=== PATIENT | female | born 1960 | race Caucasian/White ===

== ENCOUNTER → 2017-04-06 | Outpatient (CLI) | payer OTHER ==
[2015-10-08 17:15] VITALS: BP 149/71
[~2017-04-06] MED LIST: ASPI-630 PO; CITA20TA9 PO; CYAN10005 PO; DIPH25CA58 PO; FLUT1DIS5 IH; FLUT9.9S NS; LISI40TA PO; MONT10TA6 PO; NAPR500T3 PO; OMEP20CA5 PO; TRAZ100T12 PO; VENTOLIN HFA18 GM INH
--- NOTE | 2017-04-06 14:41 | RAD ---
DATE: 04/06/2017 EXAM: DIGITAL SCREEN BILAT W/CAD HISTORY: Routine screening COMPARISON: 12/20/2015 This study was interpreted with the benefit of Computerized Aided Detection (CAD). The breast parenchyma is primarily fatty replaced. Breast parenchyma level density A. FINDINGS: No new or enlarging breast densities are seen. Benign type calcifications are present. No suspicious microcalcifications have developed. IMPRESSION: Stable mammograms without evidence of malignancy. BI-RADS CATEGORY: 2 BENIGN FINDING(S) RECOMMENDED FOLLOW-UP: 12M 12 MONTH FOLLOW-UP PQRS compliance statement: Patient information was entered into a reminder system with a target due date for the next mammogram. Mammography is a sensitive method for finding small breast cancers, but it does not detect them all and is not a substitute for careful clinical examination. A negative mammogram does not negate a clinically suspicious finding and should not result in delay in biopsying a clinically suspicious abnormality. "Our facility is accredited by the [employer] Mammography [employer]."
== END | disposition home or self-care (01) ==
LOC: MAMMO 10:36
PROVIDERS: ATTEND Internal Medicine
DX: Z12.31 Encounter for screening mammogram for malignant neoplasm of breast (principal)
CPT/HCPCS: G0202; 77067

== ENCOUNTER 2017-11-29 14:43 | Emergency (ER) | payer OTHER ==
[2017-11-29 15:55] LABS: BILIRUBIN,URINE NEGATIVE (NEG); CLARITY,URINE CLEAR; COLOR,URINE YELLOW; GLUCOSE,URINE NEGATIVE (NEG); NITRITE,URINE NEGATIVE (NEG); PROTEIN,URINE NEGATIVE (NEG-TRACE); UROBILINOGEN,URINE 0.2 mg/dL (0.2 mg/dL)
[2017-11-29 16:03] LABS: ADD MAN DIFF? NO
[2017-11-29 16:05] LABS: BACTERIA,URINE 0 /HPF (0-FEW); RBC,URINE 0 /HPF (0-2); SQUAMOUS EPITHELIAL CELL,UR MOD /LPF
[2017-11-29 16:09] LABS: BASO # 0.1 x10^3/uL (0.0-0.2); BASO % 1 % (0-3); EOS # 0.2 x10^3/uL (0.0-0.7); EOS % 3 % (0-3); HEMATOCRIT 38.7 % (36.0-47.0); LYMPH # 1.5 x10^3/uL (1.0-4.8); LYMPH % 23 % (24-48); MEAN CORPUSCULAR HEMOGLOBIN 27 pg (25-35); MEAN CORPUSCULAR HGB CONC 34 g/dL (31-37); MEAN CORPUSCULAR VOLUME 82 fL (79-100); MONO # 0.4 x10^3/uL (0.0-1.1); MONO % 6 % (0-9); NEUT # 4.3 x10^3uL (1.8-7.7); NEUT % 67 % (31-73); PLATELET COUNT 186 x10^3/uL (140-400); RED BLOOD COUNT 4.75 x10^6/uL (3.50-5.40); RED CELL DISTRIBUTION WIDTH 14.3 % (11.5-14.5); WHITE BLOOD COUNT 6.4 x10^3/uL (4.0-11.0)
[2017-11-29 16:29] LABS: ANION GAP 9 (6-14); BLOOD UREA NITROGEN 19 mg/dL (7-20); BUN/CREATININE RATIO 16 (6-20); CALCIUM 9.2 mg/dL (8.5-10.1); CARBON DIOXIDE 29 mmol/L (21-32); CHLORIDE 103 mmol/L (98-107); CREATININE 1.2 mg/dL (0.6-1.0); GFR 46.1; GLUCOSE 97 mg/dL (70-99); SODIUM 141 mmol/L (136-145)
[2017-11-29] MEDS: MORPHINE SULFATE 4 MG/ML DISP.SYRIN. IV (16:32)
[2017-11-29 16:35] LABS: ALBUMIN/GLOBULIN RATIO 1.1 (1.0-1.7); ALK PHOS 68 U/L (46-116); ALT (SGPT) 35 U/L (14-59); AST (SGOT) 19 U/L (15-37); TOTAL BILIRUBIN 0.4 mg/dL (0.2-1.0); TOTAL PROTEIN 7.5 g/dL (6.4-8.2)
== END 2017-11-29 17:20 | disposition home or self-care (01) ==
LOC: ER 14:43
DX: M94.0 Chondrocostal junction syndrome [Tietze] (principal); K21.9 Gastro-esophageal reflux disease without esophagitis; J45.909 Unspecified asthma, uncomplicated; I11.9 Hypertensive heart disease without heart failure; Z95.0 Presence of cardiac pacemaker
CPT/HCPCS: 36415; 71046; 80053; 81001; 85025; 87086; 93005; 96374; 99285-25; J2270

== ENCOUNTER → 2018-04-11 | Outpatient (CLI) | payer OTHER ==
[2017-11-29 17:11] VITALS: BP 193/84
[~2018-04-11] MED LIST changes: +HYDR-971 PO; +LISI-130 PO; -LISI40TA PO; +NAPR-514 PO; -NAPR500T3 PO; +TRAZ-86 PO; -TRAZ100T12 PO
--- NOTE | 2018-04-11 12:52 | RAD ---
DATE: 04/11/2018 EXAM: DIGITAL SCREEN BILAT W/CAD HISTORY: Routine screening COMPARISON: 04/06/2017 This study was interpreted with the benefit of Computerized Aided Detection (CAD). Breast Density: FATTY The breast parenchyma is primarily fatty replaced. Breast parenchyma level density A. FINDINGS: No new or enlarging breast densities are seen. Benign type calcifications are again noted. No suspicious microcalcifications have developed. IMPRESSION: Stable mammograms without evidence of malignancy. BI-RADS CATEGORY: 2 BENIGN FINDING(S) RECOMMENDED FOLLOW-UP: 12M 12 MONTH FOLLOW-UP PQRS compliance statement: Patient information was entered into a reminder system with a target due date for the next mammogram. Mammography is a sensitive method for finding small breast cancers, but it does not detect them all and is not a substitute for careful clinical examination. A negative mammogram does not negate a clinically suspicious finding and should not result in delay in biopsying a clinically suspicious abnormality. "Our facility is accredited by the [employer] Mammography [employer]."
== END | disposition home or self-care (01) ==
LOC: MAMMO 12:27
PROVIDERS: ATTEND Internal Medicine
DX: Z12.31 Encounter for screening mammogram for malignant neoplasm of breast (principal); I11.9 Hypertensive heart disease without heart failure; K21.9 Gastro-esophageal reflux disease without esophagitis; Z88.1 Allergy status to other antibiotic agents; Z88.8 Allergy status to other drugs, medicaments and biological substances
CPT/HCPCS: 77067

== ENCOUNTER 2018-04-15 21:32 | Emergency (ER) | payer OTHER ==
[~2018-04-15] VITALS: Ht 154.9 cm; Wt 83.9 kg
[2018-04-16 02:00] VITALS: BP 174/78
[2018-04-16] MEDS ORDERED: HYDROcodone/APAP 5/325MG 1 TAB TABLET PO ONE (02:00)
[2018-04-16] MEDS ORDERED: LIDOCAINE 2%/EPI 1:100,000 20 ML VIAL. IJ ONE (02:00)
[2018-04-16] MEDS ORDERED: HYDR-971 PO (03:04)
--- NOTE | 2018-04-16 03:04 | PHYS DOC ---
Past Medical History Past Medical History: Asthma, GERD, Heart Disease, Hypertension Past Surgical History: Pacemaker, Other Additional Past Surgical Histo: pacemaker Alcohol Use: None Drug Use: None Adult General Chief Complaint Chief Complaint: TOE PROBLEM HPI HPI Patient is a 58 year old [f__sex] who presents with [] Review of Systems Review of Systems Constitutional: Denies fever or chills [] Eyes: Denies change in visual acuity, redness, or eye pain [] HENT: Denies nasal congestion or sore throat [] Respiratory: Denies cough or shortness of breath [] Cardiovascular: No additional information not addressed in HPI [] GI: Denies abdominal pain, nausea, vomiting, bloody stools or diarrhea [] : Denies dysuria or hematuria [] Musculoskeletal: Denies back pain or joint pain [] Integument: Denies rash or skin lesions [] Neurologic: Denies headache, focal weakness or sensory changes [] Endocrine: Denies polyuria or polydipsia [] All other systems were reviewed and found to be within normal limits, except as documented in this note. Current Medications Current Medications Current Medications Medications (Trade) Dose Ordered Sig/Paula Start Time Stop Time Status Last Admin Dose Admin Acetaminophen/ Hydrocodone Bitart (Lortab 5/325) 1 tab 1X ONCE 04/16/18 02:00 04/16/18 02:01 DC 04/16/18 02:17 1 TAB Lidocaine/ Epinephrine (LIDOCAINE 2%-EPI 1:100,000 multi-dose) 20 ml 1X ONCE 04/16/18 02:00 04/16/18 02:01 DC 04/16/18 02:19 20 ML Allergies Allergies Allergies Coded Allergies Type Severity Reaction Last Updated Verified piperacillin Allergy Unknown rash 05/16/15 No tazobactam Allergy Unknown rash 05/16/15 No Physical Exam Physical Exam Constitutional: Well developed, well nourished, no acute distress, non-toxic appearance. [] HENT: Normocephalic, atraumatic, bilateral external ears normal, oropharynx moist, no oral exudates, nose normal. [] Eyes: PERRLA, EOMI, conjunctiva normal, no discharge. [] Neck: Normal range of motion, no tenderness, supple, no stridor. [] Cardiovascular:Heart rate regular rhythm, no murmur [] Lungs & Thorax: Bilateral breath sounds clear to auscultation [] Abdomen: Bowel sounds normal, soft, no tenderness, no masses, no pulsatile masses. [] Skin: Warm, dry, no erythema, no rash. [] Back: No tenderness, no CVA tenderness. [] Extremities: No tenderness, no cyanosis, no clubbing, ROM intact, no edema. [] Neurologic: Alert and oriented X 3, normal motor function, normal sensory function, no focal deficits noted. [] Psychologic: Affect normal, judgement normal, mood normal. [] Current Patient Data Vital Signs Vital Signs Date Time Temp Pulse Resp B/P (MAP) Pulse Ox O2 Delivery O2 Flow Rate FiO2 04/16/18 02:17 18 97 04/16/18 00:04 97.9 63 200/91 (127) Room Air 97.9 EKG EKG [] Radiology/Procedures Radiology/Procedures XR of R foot: (Preliminary interpretation by ED physician): Acute fractures of proximal phalanx of both fourth and fifth toes Course & Med Decision Making Course & Med Decision Making Pertinent Labs and Imaging studies reviewed. (See chart for details) [] Dragon Disclaimer Dragon Disclaimer This electronic medical record was generated, in whole or in part, using a voice recognition dictation system. Departure Departure Impression: Primary Impression: Toe fracture, right Disposition: 01 HOME, SELF-CARE Condition: STABLE Referrals: JEAN CLAUDE MUNOZ MD (PCP) ARTEMIO PETERSON MD Patient Instructions: Toe Fracture Scripts Hydrocodone/Apap 5-325 (NORCO 5-325 TABLET) 1 Each Tablet 1 TAB PO PRN Q6HRS PRN for PAIN, #14 TAB 0 Refills Prov: JOSETTE CUNNINGHAM DO 04/16/18 Problem Qualifiers Primary Impression: Toe fracture, right Encounter type: initial encounter Toe: lesser toe Fracture type: closed Phalanx: proximal Fracture alignment: displaced Qualified Codes: S92.511A - Displaced fracture of proximal phalanx of right lesser toe(s), initial encounter for closed fracture JOSETTE CUNNINGHAM DO Apr 16, 2018 03:04
--- NOTE | 2018-04-16 07:55 | RAD ---
Right foot, 3 views, 04/16/2018: HISTORY: Foot pain The bony structures are demineralized. There is a mildly displaced and angulated fracture of the proximal phalanx of the little toe. There is also a fracture of the distal aspect of the proximal phalanx of the fourth toe with mild lateral displacement and angulation of the distal fracture fragment. No other fracture or dislocation is identified. There are mild scattered degenerative changes. A small inferior calcaneal spur is noted. There is subcutaneous edema. IMPRESSION: Acute fractures of the proximal phalanges of the fourth and fifth toes. Electronically signed by: Antonio Solomon MD (04/16/2018 7:52 AM) [facility]
== END 2018-04-16 03:05 | disposition home or self-care (01) ==
LOC: ER 21:32
DX: S92.511A Displaced fracture of proximal phalanx of right lesser toe(s), initial encounter for closed fracture (principal); J45.909 Unspecified asthma, uncomplicated; K21.9 Gastro-esophageal reflux disease without esophagitis; I11.9 Hypertensive heart disease without heart failure; Z95.0 Presence of cardiac pacemaker; Z88.1 Allergy status to other antibiotic agents; Z88.8 Allergy status to other drugs, medicaments and biological substances; W01.198A Fall on same level from slipping, tripping and stumbling with subsequent striking against other object, initial encounter; Y93.89 Activity, other specified; Y92.89 Other specified places as the place of occurrence of the external cause; Y99.8 Other external cause status
CPT/HCPCS: 73630; 99284; J3490

== ENCOUNTER 2018-05-23 20:39 | Inpatient (IN) | payer OTHER ==
[~2018-05-23] VITALS: Ht 154.9 cm; Wt 77.1 kg
[2018-05-23] MEDS ORDERED: IV NORMAL SALINE 500ML BAG 500 ML IV ONE (22:30)
--- NOTE | 2018-05-23 22:33 | EKG ---
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
[2018-05-23 22:34] LABS: BILIRUBIN,URINE SMALL (NEG); CLARITY,URINE CLEAR; COLOR,URINE YELLOW; NITRITE,URINE NEGATIVE (NEG); PROTEIN,URINE NEGATIVE (NEG-TRACE)
[2018-05-23 22:35] LABS: BASO % 1 % (0-3); EOS # 0.2 x10^3/uL (0.0-0.7); EOS % 3 % (0-3); HEMATOCRIT 38.6 % (36.0-47.0); LYMPH # 1.6 x10^3/uL (1.0-4.8); LYMPH % 23 % (24-48); MEAN CORPUSCULAR HEMOGLOBIN 28 pg (25-35); MEAN CORPUSCULAR HGB CONC 34 g/dL (31-37); MEAN CORPUSCULAR VOLUME 82 fL (79-100); MONO # 0.4 x10^3/uL (0.0-1.1); MONO % 6 % (0-9); NEUT # 4.7 x10^3uL (1.8-7.7); NEUT % 69 % (31-73); PLATELET COUNT 183 x10^3/uL (140-400); RED BLOOD COUNT 4.74 x10^6/uL (3.50-5.40); RED CELL DISTRIBUTION WIDTH 14.2 % (11.5-14.5); WHITE BLOOD COUNT 6.9 x10^3/uL (4.0-11.0)
[2018-05-23 22:42] LABS: CALCIUM 9.4 mg/dL (8.5-10.1); CREATININE 0.8 mg/dL (0.6-1.0); GFR 73.4; POTASSIUM 3.5 mmol/L (3.5-5.1)
[2018-05-23 22:42] LABS: BACTERIA,URINE FEW /HPF (0-FEW); RBC,URINE OCC /HPF (0-2)
[2018-05-23 22:43] LABS: SQUAMOUS EPITHELIAL CELL,UR MANY /LPF
--- NOTE | 2018-05-23 23:33 | RAD ---
Indication:DIZZINESS, N,V,D X3 DAYS TECHNIQUE:Portable AP chest X-ray COMPARISON:11/29/2017 FINDINGS: Heart is normal in size. Stable position of dual-lead cardiac pacer with its leads projecting over the heart. Diffuse prominent bronchial markings are seen. No focal consolidation. No pneumothorax or pleural effusion. Visualized bony thorax is within normal limits. IMPRESSION: Findings suggests either bronchitis or mild interstitial pulmonary edema. Electronically signed by: Braulio Rosas DO (05/23/2018 11:30 PM) [facility]
[2018-05-24] MEDS ORDERED: ACETAMINOPHEN 325 MG TABLET. PO PRN (00:45)
[2018-05-24] MEDS ORDERED: MORPHINE SULFATE 4 MG/ML VIAL. IV PRN (00:45)
[2018-05-24] MEDS ORDERED: ONDANSETRON PF 4 MG/2 ML VIAL. IV PRN (00:45)
--- NOTE | 2018-05-24 01:36 | PHYS DOC ---
Past Medical History Past Medical History: Asthma, GERD, Heart Disease, Hypertension Past Surgical History: Pacemaker, Other Additional Past Surgical Histo: pacemaker Alcohol Use: None Drug Use: None Adult General Chief Complaint Chief Complaint: DIZZY/LIGHT HEADED [facility] HPI Patient is a 58 year old female who presents with multiple complaints. Patient complains of her oral melees, generalized weakness, and dizziness. Symptoms started over the last 24 hours. Prior to this however, she endorses a three-week history of viral symptoms and cough. She had diminished appetite. She had some intermittent nausea over the last 24 hours. She also complains of some intermittent waxing and waning chest heaviness over the last 48 hours. She did not have any sustained chest pain. She denies abdominal pain. No urinary symptoms. No orthopnea. No dyspnea with exertion. Review of Systems Review of Systems Constitutional: Denies fever or chills Eyes: Denies change in visual acuity HENT: Denies nasal congestion or sore throat Respiratory: Denies cough Cardiovascular: No additional information not addressed in HPI GI: Denies abdominal pain : Denies dysuria or hematuria Musculoskeletal: Denies back pain or joint pain Integument: Denies rash or skin lesions Neurologic: Denies headache, or focal neuro complaints Endocrine: Denies polyuria All other systems were reviewed and found to be within normal limits, except as documented in this note. Current Medications Current Medications Current Medications Medications (Trade) Dose Ordered Sig/Paula Start Time Stop Time Status Last Admin Dose Admin Sodium Chloride 500 ml @ 500 mls/hr 1X ONCE 05/23/18 22:30 05/23/18 23:29 DC 05/23/18 22:40 500 MLS/HR Allergies Allergies Allergies Coded Allergies Type Severity Reaction Last Updated Verified piperacillin Allergy Unknown rash 05/16/15 No tazobactam Allergy Unknown rash 05/16/15 No Physical Exam Physical Exam Constitutional: Well developed, well nourished, no acute distress HENT: Normocephalic, atraumatic, bilateral external ears normal, oropharynx moist Eyes: PERRLA, EOMI, conjunctiva normal Neck: Normal range of motion Cardiovascular:Heart rate regular rhythm Lungs & Thorax: Bilateral breath sounds clear to auscultation Abdomen: Bowel sounds normal, soft, no tenderness Skin: Warm, dry, no erythema Back: No tenderness Extremities: No tenderness, no cyanosis, no clubbing, ROM intact Neurologic: Alert and oriented X 3, normal motor function Psychologic: Affect normal Current Patient Data Vital Signs Vital Signs Date Time Temp Pulse Resp B/P (MAP) Pulse Ox O2 Delivery O2 Flow Rate FiO2 05/23/18 23:15 67 18 98 05/23/18 20:58 98.7 178/73 (108) Room Air 98.7 Lab Values Laboratory Tests Test 05/23/18 20:45 05/23/18 21:16 Urine Collection Type Unknown Urine Color Yellow Urine Clarity Clear Urine pH 6.0 Urine Specific [place] 1.025 Urine Protein Negative mg/dL (NEG-TRACE) Urine Glucose (UA) Negative mg/dL (NEG) Urine Ketones (Stick) 40 mg/dL (NEG) Urine Blood Negative (NEG) Urine Nitrite Negative (NEG) Urine Bilirubin Small (NEG) Urine Urobilinogen Dipstick 1.0 mg/dL (0.2 mg/dL) Urine Leukocyte Esterase Moderate (NEG) Urine RBC Occ /HPF (0-2) Urine WBC 11-20 /HPF (0-4) Urine Squamous Epithelial Cells Many /LPF Urine Bacteria Few /HPF (0-FEW) Urine Mucus Marked /LPF White Blood Count 6.9 x10^3/uL (4.0-11.0) Red Blood Count 4.74 x10^6/uL (3.50-5.40) Hemoglobin 13.0 g/dL (12.0-15.5) Hematocrit 38.6 % (36.0-47.0) Mean Corpuscular Volume 82 fL (79-100) Mean Corpuscular Hemoglobin 28 pg (25-35) Mean Corpuscular Hemoglobin Concent 34 g/dL (31-37) Red Cell Distribution Width 14.2 % (11.5-14.5) Platelet Count 183 x10^3/uL (140-400) Neutrophils (%) (Auto) 69 % (31-73) Lymphocytes (%) (Auto) 23 % (24-48) L Monocytes (%) (Auto) 6 % (0-9) Eosinophils (%) (Auto) 3 % (0-3) Basophils (%) (Auto) 1 % (0-3) Neutrophils # (Auto) 4.7 x10^3uL (1.8-7.7) Lymphocytes # (Auto) 1.6 x10^3/uL (1.0-4.8) Monocytes # (Auto) 0.4 x10^3/uL (0.0-1.1) Eosinophils # (Auto) 0.2 x10^3/uL (0.0-0.7) Basophils # (Auto) 0.0 x10^3/uL (0.0-0.2) Sodium Level 142 mmol/L (136-145) Potassium Level 3.5 mmol/L (3.5-5.1) Chloride Level 104 mmol/L (98-107) Carbon Dioxide Level 27 mmol/L (21-32) Anion Gap 11 (6-14) Blood Urea Nitrogen 17 mg/dL (7-20) Creatinine 0.8 mg/dL (0.6-1.0) Estimated GFR (Cockcroft-Gault) 73.4 Glucose Level 91 mg/dL (70-99) Calcium Level 9.4 mg/dL (8.5-10.1) Troponin I Quantitative < 0.017 ng/mL (0.000-0.055) BP-Yxk-B-Type Natriuretic Peptide 278 pg/mL (0-124) H Laboratory Tests 05/23/18 21:16 Laboratory Tests 05/23/18 21:16 EKG EKG No STEMI Interpretation Time: 21:10 Radiology/Procedures Radiology/Procedures FINDINGS: Heart is normal in size. Stable position of dual-lead cardiac pacer with its leads projecting over the heart. Diffuse prominent bronchial markings are seen. No focal consolidation. No pneumothorax or pleural effusion. Visualized bony thorax is within normal limits. IMPRESSION: Findings suggests either bronchitis or mild interstitial pulmonary edema. Course & Med Decision Making Course & Med Decision Making Pertinent Labs and Imaging studies reviewed. (See chart for details) Patient was evaluated in the emergency department for multiple vague complaints. One of which was chest pain. Her EKG was normal. Her troponin was not elevated. She was feeling improved after a 500 mL normal saline bolus but the patient had some reservation about discharge home. Her lab panel was otherwise nonacute. I spoke to her primary care physician, Dr. Moore, who was agreeable to admit the patient for chest pain rule out. Bridge orders are placed. Cardiology consultation is requested. Patient is agreeable to the plan of care and all of her questions were answered prior to admission. Her urine was suspicious for infection although contaminated as well. Urine culture was added to her lab panel. She is started on Levaquin. She does have a penicillin allergy. Dragon Disclaimer Dragon Disclaimer This electronic medical record was generated, in whole or in part, using a voice recognition dictation system. Departure Departure Impression: Primary Impression: Chest pain Additional Impression: Urinary tract infection Disposition: ADMITTED INPATIENT Condition: GOOD Referrals: JEAN CLAUDE MOORE MD (PCP) Problem Qualifiers HIGINIO EDDY DO May 24, 2018 01:36
[2018-05-24 01:45] VITALS: BP 155/73
[2018-05-24] MEDS ORDERED: AMLO10TA6 PO (02:19)
[2018-05-24 07:00] VITALS: BP 143/52
[2018-05-24 08:06] LABS: CHOLESTEROL/HDL RATIO 3.3
--- NOTE | 2018-05-24 08:58 | PDOC2 ---
CLEMENTE FRANKEL BOXING INSPECTOR 05/24/18 0858: CARDIAC CONSULT DATE OF CONSULT Date of Consult DATE: 05/24/18 TIME: 08:53 REASON FOR CONSULT Reason for Consult: chest pain REFERRING PHYSICIAN Referring Physician: consuelo SOURCE Source: Chart review, Patient HISTORY OF PRESENT ILLNESS HISTORY OF PRESENT ILLNESS This is a pleasant 58 yo female admitted for complains if dizziness, chest pain. and SOA. Reports that in the last 2-3 weeks she has been having frequent heartburn and has been treating it tums. In the last week she has been having cough which then progressed to productive with yellow sputum. Sometimes she feels SOA when walking and has been having episodes of wheezing. She has not escalated her asthma medications. No fever or chills. In the last 2 days she has been having mid lower sternal sharp pain which is reproducible with palpation. No radiation, no associated nausea or vomiting and no palpitations. She has been hydrating herself well. Also in the lat 2 days whenever she gets up and turn her head towards the left she experience vertigo. Denies any past CAD, VTE. 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 aJin in whom she saw about a yr ago. PAST MEDICAL HISTORY Cardiovascular: HTN Pulmonary: Asthma CENTRAL NERVOUS SYSTEM: Other (No pertinent history) GI: GERD Heme/Onc: No pertinent hx Hepatobiliary: No pertinent hx Psych: No pertinent hx Musculoskeletal: Osteoarthritis Rheumatologic: No pertinent hx Infectious disease: No pertinent hx ENT: No pertinent hx Renal/: No pertinent hx Endocrine: No pertinent hx Dermatology: No pertinent hx PAST SURGICAL HISTORY Past Surgical History: Pacemaker, Tubal Ligation FAMILY HISTORY Family History: Heart Disease (mother) SOCIAL HISTORY Smoke: No ALCOHOL: none Drugs: None Lives: with Family CURRENT MEDICATIONS CURRENT MEDICATIONS Current Medications Medications (Trade) Dose Ordered Sig/Paula Route PRN Reason Start Time Stop Time Status Last Admin Dose Admin Sodium Chloride 500 ml @ 500 mls/hr 1X ONCE IV 05/23/18 22:30 05/23/18 23:29 DC 05/23/18 22:40 Levofloxacin (Levaquin) 500 mg 1X ONCE PO 05/24/18 01:00 05/24/18 01:01 DC 05/24/18 01:24 ALLERGIES ALLERGIES: Coded Allergies: piperacillin (Unverified Allergy, Unknown, rash, 05/16/15) tazobactam (Unverified Allergy, Unknown, rash, 05/16/15) ROS Review of System 14 point ROS evaluated with pertinent positives noted per HPI PHYSICAL EXAM General: Alert, Oriented X3, Cooperative, No acute distress HEENT: Atraumatic, Mucous membr. moist/pink Lungs: Clear to auscultation, Normal air movement Heart: Regular rate (SR), Normal S1, Normal S2, No murmurs Abdomen: Soft, No tenderness Extremities: No cyanosis, No edema Skin: No breakdown, No significant lesion Neuro: Normal speech, Sensation intact Psych/Mental Status: Mental status NL, Mood NL MUSCULOSKELETAL: Osteoarthritic changes both hands VITALS VITALS Vital Signs Date Time Temp Pulse Resp B/P (MAP) Pulse Ox O2 Delivery O2 Flow Rate FiO2 05/24/18 07:00 97.7 55 18 143/52 (82) 97 Room Air 97.7 LABS Lab: Laboratory Tests Test 05/23/18 20:45 05/23/18 21:16 05/24/18 03:35 05/24/18 06:50 Urine Collection Type Unknown Urine Color Yellow Urine Clarity Clear Urine pH 6.0 Urine Specific [place] 1.025 Urine Protein Negative mg/dL (NEG-TRACE) Urine Glucose (UA) Negative mg/dL (NEG) Urine Ketones (Stick) 40 mg/dL (NEG) Urine Blood Negative (NEG) Urine Nitrite Negative (NEG) Urine Bilirubin Small (NEG) Urine Urobilinogen Dipstick 1.0 mg/dL (0.2 mg/dL) Urine Leukocyte Esterase Moderate (NEG) Urine RBC Occ /HPF (0-2) Urine WBC 11-20 /HPF (0-4) Urine Squamous Epithelial Cells Many /LPF Urine Bacteria Few /HPF (0-FEW) Urine Mucus Marked /LPF White Blood Count 6.9 x10^3/uL (4.0-11.0) Red Blood Count 4.74 x10^6/uL (3.50-5.40) Hemoglobin 13.0 g/dL (12.0-15.5) Hematocrit 38.6 % (36.0-47.0) Mean Corpuscular Volume 82 fL (79-100) Mean Corpuscular Hemoglobin 28 pg (25-35) Mean Corpuscular Hemoglobin Concent 34 g/dL (31-37) Red Cell Distribution Width 14.2 % (11.5-14.5) Platelet Count 183 x10^3/uL (140-400) Neutrophils (%) (Auto) 69 % (31-73) Lymphocytes (%) (Auto) 23 % (24-48) Monocytes (%) (Auto) 6 % (0-9) Eosinophils (%) (Auto) 3 % (0-3) Basophils (%) (Auto) 1 % (0-3) Neutrophils # (Auto) 4.7 x10^3uL (1.8-7.7) Lymphocytes # (Auto) 1.6 x10^3/uL (1.0-4.8) Monocytes # (Auto) 0.4 x10^3/uL (0.0-1.1) Eosinophils # (Auto) 0.2 x10^3/uL (0.0-0.7) Basophils # (Auto) 0.0 x10^3/uL (0.0-0.2) Sodium Level 142 mmol/L (136-145) Potassium Level 3.5 mmol/L (3.5-5.1) Chloride Level 104 mmol/L (98-107) Carbon Dioxide Level 27 mmol/L (21-32) Anion Gap 11 (6-14) Blood Urea Nitrogen 17 mg/dL (7-20) Creatinine 0.8 mg/dL (0.6-1.0) Estimated GFR (Cockcroft-Gault) 73.4 Glucose Level 91 mg/dL (70-99) Calcium Level 9.4 mg/dL (8.5-10.1) Troponin I Quantitative < 0.017 ng/mL (0.000-0.055) < 0.017 ng/mL (0.000-0.055) < 0.017 ng/mL (0.000-0.055) SJ-Qor-V-Type Natriuretic Peptide 278 pg/mL (0-124) Triglycerides Level 77 mg/dL (0-150) Cholesterol Level 143 mg/dL (0-200) LDL Cholesterol, Calculated 85 mg/dL (0-100) VLDL Cholesterol, Calculated 15 mg/dL (0-40) Non-HDL Cholesterol Calculated 100 mg/dL (0-129) HDL Cholesterol 43 mg/dL (40-60) Cholesterol/HDL Ratio 3.3 Thyroid Stimulating Hormone (TSH) 1.314 uIU/mL (0.358-3.74) ASSESSMENT/PLAN ASSESSMENT/PLAN 1. Acute bronchitis/Asthma exacerbation/URI: GERD exacerbation contributing as well. Per PCP 2. Atypical CP: Trops nml, EKG SR without acute changes. reproducible from cough and GERD 3. Dizziness:probably postussive 4. Vertigo: suspect precipitated by URI 5. GERD exacerbation 6. PPM: medtronic placed in 2012 due to symptomatic bradycardia, 9. HTN: controlled 10. GERD exacerbation Recommendations 1. TTE and interrogate device. 2. Continue home BP med. will do orthostatic readings. 3. Follow up with Dr. Jain at as an outpt. SHERWIN MARES MD 05/24/18 1274: CARDIAC CONSULT ASSESSMENT/PLAN ASSESSMENT/PLAN Pt. seen and examined. Agree with above FIBRE CEMENT MOULDER note. Non cardiac chest pain. Supportive care. Agree with GI eval. Pls call with questions. CLEMENTE FRANKEL APRN May 24, 2018 08:58 SHERWIN MARES MD May 24, 2018 18:44
[2018-05-24] MEDS ORDERED: HYDROcodone/APAP 5/325MG 1 TAB TABLET PO PRN (09:15)
--- NOTE | 2018-05-24 09:59 | PDOC ---
Provider Note Provider Note P seen.H&P dictated. #[id number] JEAN CLAUDE MUNOZ MD May 24, 2018 09:59
[2018-05-24] MEDS ORDERED: IPRATRPIUM/ALBUTEROL 0.5/2.5MG 3 ML NEBU. NEB ONE (10:00)
--- NOTE | 2018-05-24 10:33 | HP ---
ADMIT DATE: 05/23/2018 PATIENT LOCATION: [facility]. REASON FOR ADMISSION TO THE HOSPITAL: 1. Dizziness, lightheaded. 2. Possible UTI. 3. Has a history of pacemaker, rule out cardiac arrhythmia. HISTORY OF PRESENT ILLNESS: The patient is a 58-year-old female. The patient has history of pacemaker for bradycardia in 2012 and she has a history of GERD. Her symptoms got progressively worse. She also had a chest cold and she has been feeling lightheaded, dizzy and now as she moves her head, she feels lightheaded and dizzy. The patient came to the Emergency Room with these multiple problems. Urine shows UTI, was given antibiotics and was admitted to the hospital. Also, the patient was complaining of chest discomfort, seen by Cardiology. PAST MEDICAL HISTORY: Asthma, GERD, hypertension and pacemaker. PAST SURGICAL HISTORY: Pacemaker. ALLERGIES: PIPERACILLIN AND TAZOBACTAM CAUSES RASH. MEDICATIONS AT HOME: The patient is on Flonase; albuterol 2 puffs qid; amlodipine 10 mg daily; aspirin 81 daily; citalopram 20 mg twice a day; B12 at 1000 mcg daily; Benadryl p.r.n.; Advair 500/50 twice a day; hydrocodone for chronic pain one q.6h., 5/325; lisinopril 40 mg daily; Singulair 10 mg daily; naproxen 500 mg twice a day; omeprazole 20 mg daily and trazodone 100 mg at bedtime. SOCIAL HISTORY: No smoking, alcohol or drug abuse. FAMILY HISTORY: Heart disease in the mother. REVIEW OF SYMPTOMS: Cardiac ansari, some chest pain, mostly in the center of the chest, burning sensation. No nausea or vomiting. Some dizziness. Rest of the 14 systems were reviewed and negative. PHYSICAL EXAMINATION: GENERAL: On examination, the patient is not in any distress. VITAL SIGNS: Temperature 98, pulse 61, respirations 18, blood pressure 178/73 and 98 on room air. HEENT: Head is atraumatic. Pupils equal. No nystagmus. Oral cavity, slight congestion. Postnasal drip. NECK: Supple. Thyroid not enlarged. JVD not elevated. CHEST: Symmetrical. Has a pacemaker on the left side of the chest. CARDIOVASCULAR: S1, S2. ABDOMEN: Soft. Bowel sounds present. No mass palpable. EXTERNAL GENITALIA: No [place]. RECTAL: Deferred. EXTREMITIES: No calf tenderness, no edema. Pulses are 1+. NEUROLOGICAL EXAMINATION: Moving all extremities. No focal deficits noted. LABORATORY DATA: Shows a white count of 7, hemoglobin 13 and platelets 183,000. Electrolytes show sodium 140, potassium 3.5, chloride 104, bicarbonate 27, BUN 17, creatinine 0.8 and glucose 91. BNP 278. Troponin was negative. Cholesterol 143, LDL 85 and HDL 43. TSH 1.3. Urine shows 10-20 wbc's, moderate leukocyte esterase. Chest x-ray, bronchitis. EKG done, no acute ischemic changes. FINAL IMPRESSION: 1. Chest pain. 2. Possible gastroesophageal reflux disease. 3. History of pacemaker. 4. Hypertension. 5. Hyperlipidemia. 6. Dizziness, possibly vestibular. 7. Urinary tract infection. 8. Possible bronchitis. PLAN: Plan at this time was admit to hospital, seen by Cardiology. Cardiac enzymes, EKG, labs, echo and pacemaker interrogation. We will also have a GI consult for EGD and IV Rocephin for UTI and bronchitis and DuoNebs and see how the patient's condition improves. JEAN CLAUDE MUNOZ MD DR: [email or web address]/[email or web address] JOB#: [id number] / [id number] JESI
[2018-05-24 11:00] VITALS: BP 152/76
[2018-05-24] MEDS: CYANOCOBALAMIN (VITAMIN B-12) 1,000 MCG TABLET. PO SCH (11:24)
[2018-05-24] MEDS: CITALOPRAM 20 MG TABLET. PO SCH ×2 (11:24→22:08)
[2018-05-24] MEDS: amLODIPine BESYLATE 10 MG TABLET PO SCH (11:26)
[2018-05-24] MEDS: ASPIRIN CHEWABLE 81 MG TABLET. PO SCH (11:26)
[2018-05-24] MEDS: NAPROXEN 500 MG TABLET PO SCH ×2 (11:26→22:09)
[2018-05-24] MEDS: diphenhydrAMINE HCL 25 MG CAPSULE PO SCH ×3 (11:26→22:08)
[2018-05-24] MEDS: LISINOPRIL 20 MG TABLET PO SCH (11:27)
[2018-05-24] MEDS: BUDESONIDE 0.5 MG/2 ML NEBU. NEB SCH ×2 (11:37→20:24)
[2018-05-24] MEDS: IPRATRPIUM/ALBUTEROL 0.5/2.5MG 3 ML NEBU. NEB SCH ×3 (11:37→20:24)
[2018-05-24] MEDS ORDERED: NON FORMULARY ITEM (Albuterol Sulfate (Ventolin Hfa Inhaler) 2 PUFF) INH SCH (12:00)
[2018-05-24] MEDS ORDERED: ALBUTEROL SULFATE 2.5 MG/3 ML NEBU. NEB PRN (12:00)
[2018-05-24] MEDS ORDERED: ALBUTEROL SULFATE 2.5 MG/3 ML NEBU. NEB SCH (12:00)
[2018-05-24] MEDS: PANTOPRAZOLE 40 MG TABLET.DR. PO SCH (12:13)
[2018-05-24] MEDS: guaiFENesin DM 600/30MG 1 TAB TAB.ER.12H PO SCH ×2 (12:13→22:08)
[2018-05-24] MEDS: ENOXAPARIN 40 MG/0.4 ML SYRINGE. SQ SCH (12:13)
[2018-05-24] MEDS: cefTRIAXone IV Push 1 GM VIAL. IVP SCH (12:14)
--- NOTE | 2018-05-24 13:35 | CARD ---
MR#: [id number] Date of Study: 05/24/2018 Ordering Physician: CLEMENTE FRANKEL, Referring Physician: JEAN CLAUDE MUNOZ, Tech: Leann Sutton APPROVED REPORT EXAM: Two-dimensional and M-mode echocardiogram with Doppler and color Doppler. Other Information Quality : AverageHR: 63bpm INDICATION Chest Pain Surgery/Intervention Pacemaker: 2D DIMENSIONS Left Atrium(2D)3.2 (1.6-4.0cm)IVSd1.2 (0.7-1.1cm) Aortic Root(2D)2.8 (2.0-3.7cm)LVDd4.1 (3.9-5.9cm) LVOT Diameter2.1 (1.8-2.4cm)PWd1.3 (0.7-1.1cm) LVDs3.0 (2.5-4.0cm)FS (%) 25.9 % SV37.1 mlLVEF(%)51.3 (>50%) Aortic Valve AoV Peak Ramin.182.5cm/sAoV VTI37.2cm AO Peak GR.13.3mmHgLVOT Peak Ramin.131.0cm/s AO Mean GR.6mmHgAVA (VMAX)2.43cm2 Mitral Valve MV E Hmircmca91.0cm/sMV DECEL [id number] MV A Ycnzmsqz02.1cm/sE/A Ratio1.2 Tricuspid Valve TR P. Dpzdisxh813co/sRAP [id number] TR Peak Gr.01vfDiQYPF04ghEe Pulmonary Vein S1 Npuoopbs44.0cm/sD2 Iqutncae50.4cm/s PVa [id number] LEFT VENTRICLE The left ventricle is normal size. There is mild concentric left ventricular hypertrophy. The left ve ntricular systolic function is normal and the ejection fraction is within normal range. EF 55% There is normal LV segmental wall motion. Transmitral Doppler flow pattern is Grade II-pseudonormal filling dynamics. RIGHT VENTRICLE The right ventricle is normal size. There is normal right ventricular wall thickness. The right ventr icular systolic function is normal. There is a pacemaker lead in the RA/RV ATRIA The left atrium size is normal. The right atrium size is normal. The interatrial septum is intact wit h no evidence for an atrial septal defect or patent foramen ovale as noted on 2-D or Doppler imaging. AORTIC VALVE The aortic valve is normal in structure and function. Doppler and Color Flow revealed no significant aortic regurgitation. There is no significant aortic valvular stenosis. MITRAL VALVE The mitral valve is normal in structure and function. There is no mitral valve stenosis. Doppler and Color-flow revealed trace mitral regurgitation. TRICUSPID VALVE The tricuspid valve is not well visualized. Doppler and Color Flow revealed trace tricuspid regurgita tion. There is no tricuspid valve stenosis. PULMONIC VALVE The pulmonic valve is not well visualized. Doppler and Color Flow revealed no pulmonic valvular regur gitation. There is no pulmonic valvular stenosis. GREAT VESSELS The aortic root is normal in size. Normal pulmonary venous flow (Doppler). The IVC is normal in size and collapses >50% with inspiration. PERICARDIAL EFFUSION There is no evidence of significant pericardial effusion. Critical Notification Critical Value: No <Conclusion> The left ventricular systolic function is normal and the ejection fraction is within normal range. EF 55% There is normal LV segmental wall motion. There is a pacemaker lead in the RA/RV Signed by : Octavio Glez, Electronically Approved : 05/24/2018 13:35:39
--- NOTE | 2018-05-24 13:42 | PDOC2 ---
GI CONSULT Reason For Consult: GERD, needs EGD HPI: HPI: 58 y/o female admitted w/ a variety of symptoms including chest pain, SOA, cough , and dizziness. Cardiology evaluation in process. Chest pain began Wednesday without precipitating events. Substernal/epigastric "sharp burning" with radiation to her back. H/o GERD on omeprazole QD 20 min before breakfast, also Tums. Sometimes food hangs in epigastrium - feels full, no regurg. Decreased appetite - hard to say when this began. Vomited yesterday - able to eat today but just a little due to ongoing nausea. Trying to lose weight. No diarrhea, constipation, hematochezia, melena, or hematemesis. No previous EGD. Says due for a screening colonoscopy but also might have had one last year. No GB, liver, or pancreas history. Med list include Naproxen - she says she doesn't take this at home but instead uses Tylenol or Tramadol. On ASA here, also note B12 at home. PMH: PMH: HTN, asthma, GERD, pacemaker, tubal ligation FH: Family History: Cancer (sister- breast) Social History: Smoke: No ALCOHOL: none Drugs: None ROS: GEN: Denies fevers, chills, sweats HEENT: Denies blurred vision, sore throat CV: +CP RESP: +SOA +cough GI: Per HPI : Denies hematuria, dysuria ENDO: +intentional weight loss NEURO: +dizziness MSK: Denies weakness, joint pain/swelling SKIN: Denies jaundice, pruritus Vitals: Vitals: Vital Signs Date Time Temp Pulse Resp B/P (MAP) Pulse Ox O2 Delivery O2 Flow Rate FiO2 05/24/18 11:41 97 Room Air 05/24/18 11:27 55 143/52 05/24/18 11:00 97.4 18 97.4 Labs: Labs: Laboratory Tests Test 05/23/18 20:45 05/23/18 21:16 05/24/18 03:35 05/24/18 06:50 Urine Collection Type Unknown Urine Color Yellow Urine Clarity Clear Urine pH 6.0 Urine Specific [place] 1.025 Urine Protein Negative mg/dL (NEG-TRACE) Urine Glucose (UA) Negative mg/dL (NEG) Urine Ketones (Stick) 40 mg/dL (NEG) Urine Blood Negative (NEG) Urine Nitrite Negative (NEG) Urine Bilirubin Small (NEG) Urine Urobilinogen Dipstick 1.0 mg/dL (0.2 mg/dL) Urine Leukocyte Esterase Moderate (NEG) Urine RBC Occ /HPF (0-2) Urine WBC 11-20 /HPF (0-4) Urine Squamous Epithelial Cells Many /LPF Urine Bacteria Few /HPF (0-FEW) Urine Mucus Marked /LPF White Blood Count 6.9 x10^3/uL (4.0-11.0) Red Blood Count 4.74 x10^6/uL (3.50-5.40) Hemoglobin 13.0 g/dL (12.0-15.5) Hematocrit 38.6 % (36.0-47.0) Mean Corpuscular Volume 82 fL (79-100) Mean Corpuscular Hemoglobin 28 pg (25-35) Mean Corpuscular Hemoglobin Concent 34 g/dL (31-37) Red Cell Distribution Width 14.2 % (11.5-14.5) Platelet Count 183 x10^3/uL (140-400) Neutrophils (%) (Auto) 69 % (31-73) Lymphocytes (%) (Auto) 23 % (24-48) Monocytes (%) (Auto) 6 % (0-9) Eosinophils (%) (Auto) 3 % (0-3) Basophils (%) (Auto) 1 % (0-3) Neutrophils # (Auto) 4.7 x10^3uL (1.8-7.7) Lymphocytes # (Auto) 1.6 x10^3/uL (1.0-4.8) Monocytes # (Auto) 0.4 x10^3/uL (0.0-1.1) Eosinophils # (Auto) 0.2 x10^3/uL (0.0-0.7) Basophils # (Auto) 0.0 x10^3/uL (0.0-0.2) Sodium Level 142 mmol/L (136-145) Potassium Level 3.5 mmol/L (3.5-5.1) Chloride Level 104 mmol/L (98-107) Carbon Dioxide Level 27 mmol/L (21-32) Anion Gap 11 (6-14) Blood Urea Nitrogen 17 mg/dL (7-20) Creatinine 0.8 mg/dL (0.6-1.0) Estimated GFR (Cockcroft-Gault) 73.4 Glucose Level 91 mg/dL (70-99) Calcium Level 9.4 mg/dL (8.5-10.1) Troponin I Quantitative < 0.017 ng/mL (0.000-0.055) < 0.017 ng/mL (0.000-0.055) < 0.017 ng/mL (0.000-0.055) EI-Jey-J-Type Natriuretic Peptide 278 pg/mL (0-124) Triglycerides Level 77 mg/dL (0-150) Cholesterol Level 143 mg/dL (0-200) LDL Cholesterol, Calculated 85 mg/dL (0-100) VLDL Cholesterol, Calculated 15 mg/dL (0-40) Non-HDL Cholesterol Calculated 100 mg/dL (0-129) HDL Cholesterol 43 mg/dL (40-60) Cholesterol/HDL Ratio 3.3 Thyroid Stimulating Hormone (TSH) 1.314 uIU/mL (0.358-3.74) Allergies: Coded Allergies: piperacillin (Unverified Allergy, Unknown, rash, 05/16/15) tazobactam (Unverified Allergy, Unknown, rash, 05/16/15) Medications: Current Medications Medications (Trade) Dose Ordered Sig/Paula Route PRN Reason Start Time Stop Time Status Last Admin Dose Admin Sodium Chloride 500 ml @ 500 mls/hr 1X ONCE IV 05/23/18 22:30 05/23/18 23:29 DC 05/23/18 22:40 Levofloxacin (Levaquin) 500 mg 1X ONCE PO 05/24/18 01:00 05/24/18 01:01 DC 05/24/18 01:24 Amlodipine Besylate (Norvasc) 10 mg DAILY PO 05/24/18 09:00 05/24/18 11:26 Aspirin (Children'S Aspirin) 81 mg DAILY PO 05/24/18 09:00 05/24/18 11:26 Citalopram Hydrobromide (CeleXA) 20 mg BID PO 05/24/18 09:00 05/24/18 11:24 Cyanocobalamin (Vitamin B-12) 1,000 mcg DAILY PO 05/24/18 09:00 05/24/18 11:24 Diphenhydramine HCl (Benadryl) 25 mg TID PO 05/24/18 09:00 05/24/18 11:26 Lisinopril (Prinivil) 40 mg DAILY PO 05/24/18 09:00 05/24/18 11:27 Naproxen (Naprosyn) 500 mg BID PO 05/24/18 09:15 05/24/18 11:26 Pantoprazole Sodium (Protonix) 40 mg DAILYAC PO 05/24/18 11:30 05/24/18 12:13 Enoxaparin Sodium (Lovenox 40mg Syringe) 40 mg Q24H SQ 05/24/18 10:00 05/24/18 12:13 Ceftriaxone Sodium (Rocephin) 1 gm Q24H IVP 05/24/18 10:00 05/24/18 12:14 Budesonide (Pulmicort) 0.5 mg RTBID NEB 05/24/18 10:00 05/24/18 11:37 Guaifenesin (MUCINEX ER with DM) 1 tab BID PO 05/24/18 10:00 05/24/18 12:13 Albuterol/ Ipratropium (Duoneb) 3 ml 1X ONCE NEB 05/24/18 10:00 05/24/18 10:06 DC 05/24/18 11:37 Albuterol/ Ipratropium (Duoneb) 3 ml RTQID NEB 05/24/18 12:00 05/24/18 11:37 Imaging: Imaging: CXR IMPRESSION: Findings suggests either bronchitis or mild interstitial pulmonary edema. Echo (pending) PE: GEN: NAD HEENT: Atraumatic, PERRLA LUNGS: CTAB HEART: RRR, no murmurs ABD: NABS, S/ND/NT, no masses EXTREMITY: No edema SKIN: No rashes, no jaundice NEURO/PSYCH: A & O 3 A/P: A/P: Chest pain, SOA/cough, dizziness, n/v H/o GERD -on PPI and Tums, no previous EGD -might have early satiety and/or intermittent dysphagia CRC screen - unclear -- Await cardiology workup - if unrevealing, consider EGD (?) Continue PPI. JIMENEZ RODGERS May 24, 2018 13:41
[2018-05-24 14:30] VITALS: BP 123/56
[2018-05-24 19:00] VITALS: BP 130/56
[2018-05-24] MEDS ORDERED: NON FORMULARY ITEM (Fluticasone/Salmeterol (Advair 500-50 Diskus) 1 PUFF) IH SCH (21:00)
[2018-05-24] MEDS: MONTELUKAST SODIUM 10 MG TABLET. PO SCH (22:08)
[2018-05-24] MEDS: traZODone 100 MG TABLET. PO SCH (22:08)
[2018-05-24 23:00] VITALS: BP 104/42
[2018-05-25 03:00] VITALS: BP 113/46
[2018-05-25 07:00] VITALS: BP 131/61
[2018-05-25] MEDS: BUDESONIDE 0.5 MG/2 ML NEBU. NEB SCH ×2 (07:37→19:08)
[2018-05-25] MEDS: IPRATRPIUM/ALBUTEROL 0.5/2.5MG 3 ML NEBU. NEB SCH ×4 (07:37→19:08)
[2018-05-25 08:25] LABS: BASO % 1 % (0-3); EOS # 0.2 x10^3/uL (0.0-0.7); EOS % 3 % (0-3); HEMATOCRIT 34.4 % (36.0-47.0); HEMOGLOBIN 11.9 g/dL (12.0-15.5); LYMPH # 1.2 x10^3/uL (1.0-4.8); LYMPH % 26 % (24-48); MEAN CORPUSCULAR HEMOGLOBIN 28 pg (25-35); MEAN CORPUSCULAR HGB CONC 35 g/dL (31-37); MEAN CORPUSCULAR VOLUME 81 fL (79-100); MONO # 0.3 x10^3/uL (0.0-1.1); MONO % 7 % (0-9); NEUT # 2.9 x10^3uL (1.8-7.7); NEUT % 63 % (31-73); PLATELET COUNT 151 x10^3/uL (140-400); RED BLOOD COUNT 4.23 x10^6/uL (3.50-5.40); RED CELL DISTRIBUTION WIDTH 14.5 % (11.5-14.5); WHITE BLOOD COUNT 4.6 x10^3/uL (4.0-11.0)
[2018-05-25 08:37] LABS: CALCIUM 8.7 mg/dL (8.5-10.1); CREATININE 0.9 mg/dL (0.6-1.0); GFR 64.1; POTASSIUM 3.5 mmol/L (3.5-5.1)
--- NOTE | 2018-05-25 09:07 | PDOC ---
Subjective: Subjective: Able to eat a little more this morning. Still has some nausea and some chest pain, but "just a little" - better overall. Objective: Vital Signs: Vital Signs Date Time Temp Pulse Resp B/P (MAP) Pulse Ox O2 Delivery O2 Flow Rate FiO2 05/25/18 07:34 96 Room Air 05/25/18 07:00 97.7 67 18 131/61 (84) 97.7 Labs: Laboratory Tests Test 05/25/18 07:22 05/25/18 07:30 Sodium Level 145 mmol/L Potassium Level 3.5 mmol/L Chloride Level 108 mmol/L Carbon Dioxide Level 26 mmol/L Anion Gap 11 Blood Urea Nitrogen 16 mg/dL Creatinine 0.9 mg/dL Estimated GFR (Cockcroft-Gault) 64.1 Glucose Level 91 mg/dL Calcium Level 8.7 mg/dL White Blood Count 4.6 x10^3/uL Red Blood Count 4.23 x10^6/uL Hemoglobin 11.9 g/dL Hematocrit 34.4 % Mean Corpuscular Volume 81 fL Mean Corpuscular Hemoglobin 28 pg Mean Corpuscular Hemoglobin Concent 35 g/dL Red Cell Distribution Width 14.5 % Platelet Count 151 x10^3/uL Neutrophils (%) (Auto) 63 % Lymphocytes (%) (Auto) 26 % Monocytes (%) (Auto) 7 % Eosinophils (%) (Auto) 3 % Basophils (%) (Auto) 1 % Neutrophils # (Auto) 2.9 x10^3uL Lymphocytes # (Auto) 1.2 x10^3/uL Monocytes # (Auto) 0.3 x10^3/uL Eosinophils # (Auto) 0.2 x10^3/uL Basophils # (Auto) 0.0 x10^3/uL Imaging: Echocardiogram <Conclusion> The left ventricular systolic function is normal and the ejection fraction is within normal range. EF 55% There is normal LV segmental wall motion. There is a pacemaker lead in the RA/RV PE: GEN: NAD, resting, breakfast tray ~75% empty LUNGS: CTAB HEART: RRR ABD: S/ND/NT NEURO/PSYCH: A & O 3 A/P: Atypical CP, nausea, h/o GERD -- EGD tomorrow? Will review w/ Dr. Cramer. Continue PPI. JIMENEZ RODGERS May 25, 2018 09:07
--- NOTE | 2018-05-25 09:20 | PDOC ---
PROGRESS NOTES Objective Objective Vital Signs Date Time Temp Pulse Resp B/P (MAP) Pulse Ox O2 Delivery O2 Flow Rate FiO2 05/25/18 07:34 96 Room Air 05/25/18 07:00 97.7 67 18 131/61 (84) 97.7 Intake and Output 05/25/18 07:00 Intake Total 880 ml Balance 880 ml Intake Oral 880 ml # Voids 3 Physical Exam Abdomen: Soft, No tenderness Heart: Regular rate (SR), Normal S1, Normal S2, No murmurs Extremities: No cyanosis, No edema General: Alert, Oriented X3, Cooperative, No acute distress HEENT: Atraumatic, Mucous membr. moist/pink Lungs: Clear to auscultation, Normal air movement MUSCULOSKELETAL: Osteoarthritic changes both hands Neuro: Normal speech, Sensation intact Psych/Mental Status: Mental status NL, Mood NL Skin: No breakdown, No significant lesion Comment Review of Relevant I have reviewed the following items beverly (where applicable) has been applied. Labs Laboratory Tests Test 05/25/18 07:22 05/25/18 07:30 Sodium Level 145 mmol/L (136-145) Potassium Level 3.5 mmol/L (3.5-5.1) Chloride Level 108 mmol/L (98-107) Carbon Dioxide Level 26 mmol/L (21-32) Anion Gap 11 (6-14) Blood Urea Nitrogen 16 mg/dL (7-20) Creatinine 0.9 mg/dL (0.6-1.0) Estimated GFR (Cockcroft-Gault) 64.1 Glucose Level 91 mg/dL (70-99) Calcium Level 8.7 mg/dL (8.5-10.1) White Blood Count 4.6 x10^3/uL (4.0-11.0) Red Blood Count 4.23 x10^6/uL (3.50-5.40) Hemoglobin 11.9 g/dL (12.0-15.5) Hematocrit 34.4 % (36.0-47.0) Mean Corpuscular Volume 81 fL (79-100) Mean Corpuscular Hemoglobin 28 pg (25-35) Mean Corpuscular Hemoglobin Concent 35 g/dL (31-37) Red Cell Distribution Width 14.5 % (11.5-14.5) Platelet Count 151 x10^3/uL (140-400) Neutrophils (%) (Auto) 63 % (31-73) Lymphocytes (%) (Auto) 26 % (24-48) Monocytes (%) (Auto) 7 % (0-9) Eosinophils (%) (Auto) 3 % (0-3) Basophils (%) (Auto) 1 % (0-3) Neutrophils # (Auto) 2.9 x10^3uL (1.8-7.7) Lymphocytes # (Auto) 1.2 x10^3/uL (1.0-4.8) Monocytes # (Auto) 0.3 x10^3/uL (0.0-1.1) Eosinophils # (Auto) 0.2 x10^3/uL (0.0-0.7) Basophils # (Auto) 0.0 x10^3/uL (0.0-0.2) Medications Current Medications Albuterol Sulfate (Ventolin Neb Soln) 2.5 mg PRN Q4HRS PRN NEB WHEEZING; Start 05/24/18 at 12:00 Albuterol Sulfate (Ventolin Neb Soln) 2.5 mg Q4HRS NEB ; Start 05/24/18 at 12: 00; Stop 05/24/18 at 12:00; Status DC Albuterol/ Ipratropium (Duoneb) 3 ml 1X ONCE NEB Last administered on at 11:37; Start 05/24/18 at 10:00; Stop 05/24/18 at 10:06; Status DC Albuterol/ Ipratropium (Duoneb) 3 ml RTQID NEB Last administered on 05/25/18at 07:37; Start 05/24/18 at 12:00 Budesonide (Pulmicort) 0.5 mg RTBID NEB Last administered on 05/25/18at 07:37; Start 05/24/18 at 10:00 Ceftriaxone Sodium (Rocephin) 1 gm Q24H IVP Last administered on 05/24/18at 12: 14; Start 05/24/18 at 10:00 Enoxaparin Sodium (Lovenox 40mg Syringe) 40 mg Q24H SQ Last administered on at 12:13; Start 05/24/18 at 10:00 Guaifenesin (MUCINEX ER with DM) 1 tab BID PO Last administered on 05/24/18at 22:08; Start 05/24/18 at 10:00 Lactobacillus Rhamnosus (Culturelle) 1 cap BID PO ; Start 05/25/18 at 09:00 Montelukast Sodium (Singulair) 10 mg QHS PO Last administered on 05/24/18at 22: 08; Start 05/24/18 at 21:00 Non-Formulary Medication (Albuterol Sulfate (Ventolin Hfa Inhaler)) 2 puff Q4HRS INH ; Start 05/24/18 at 12:00; Status UNV Non-Formulary Medication (Fluticasone/ Salmeterol (Advair 500-50 Diskus)) 1 puff BID IH ; Start 05/24/18 at 21:00; Status UNV Pantoprazole Sodium (Protonix) 40 mg DAILYAC PO Last administered on at 12:13; Start 05/24/18 at 11:30 Trazodone HCl (Desyrel) 100 mg QHS PO Last administered on 05/24/18at 22:08; Start 05/24/18 at 21:00 Vitals/I & O Vital Sign - Last 24 Hours 05/24/18 05/24/18 05/24/18 05/24/18 11:00 11:26 11:27 11:41 Temp 97.4 97.4 Pulse 57 55 55 Resp 18 B/P (MAP) 152/76 (101) 143/52 143/52 Pulse Ox 97 97 O2 Delivery Room Air Room Air 05/24/18 05/24/18 05/24/18 05/24/18 14:30 15:26 19:00 20:00 Temp 98.7 97.9 98.7 97.9 Pulse 66 71 Resp 18 18 B/P (MAP) 123/56 (78) 130/56 (80) Pulse Ox 95 96 96 O2 Delivery Room Air Room Air Room Air Room Air 05/24/18 05/24/18 05/24/18 05/25/18 20:24 20:26 23:00 03:00 Temp 97.8 98.7 97.8 98.7 Pulse 56 53 Resp 16 18 B/P (MAP) 104/42 (62) 113/46 (68) Pulse Ox 96 96 O2 Delivery Room Air Room Air Room Air Room Air 05/25/18 05/25/18 07:00 07:34 Temp 97.7 97.7 Pulse 67 Resp 18 B/P (MAP) 131/61 (84) Pulse Ox 97 96 O2 Delivery Room Air Room Air Intake and Output 05/24/18 05/24/18 05/25/18 15:00 23:00 07:00 Intake Total 180 ml 200 ml 500 ml Balance 180 ml 200 ml 500 ml JEAN CLAUDE MUNOZ MD May 25, 2018 09:20
--- NOTE | 2018-05-25 10:22 | PDOC ---
PROGRESS NOTES Subjective Subjective feels better today ,less dizziness Objective Objective Vital Signs Date Time Temp Pulse Resp B/P (MAP) Pulse Ox O2 Delivery O2 Flow Rate FiO2 05/25/18 07:34 96 Room Air 05/25/18 07:00 97.7 67 18 131/61 (84) 97.7 Intake and Output 05/25/18 07:00 Intake Total 880 ml Balance 880 ml Intake Oral 880 ml # Voids 3 Physical Exam Abdomen: Soft, No tenderness Heart: Regular rate (SR), Normal S1, Normal S2, No murmurs Extremities: No cyanosis, No edema General: Alert, Oriented X3, Cooperative, No acute distress HEENT: Atraumatic, Mucous membr. moist/pink Lungs: Clear to auscultation, Normal air movement MUSCULOSKELETAL: Osteoarthritic changes both hands Neuro: Normal speech, Sensation intact Psych/Mental Status: Mental status NL, Mood NL Skin: No breakdown, No significant lesion Assessment Assessment FINAL IMPRESSION: 1. Chest pain. 2. Possible gastroesophageal reflux disease. 3. History of pacemaker. 4. Hypertension. 5. Hyperlipidemia. 6. Dizziness, possibly vestibular. 7. Urinary tract infection. 8. Possible bronchitis. PLAN: iv Rocephin for bronchitis ECHO good lvf EGD in am lab s ok, cxr repeat today ?d/c home tomorrow. Plan at this time was admit to hospital, seen by Cardiology. Cardiac enzymes, EKG, labs, echo and pacemaker interrogation. We will also have a GI consult for EGD and IV Rocephin for UTI and bronchitis and DuoNebs and see how the patient's condition improves. Comment Review of Relevant I have reviewed the following items beverly (where applicable) has been applied. Labs Laboratory Tests Test 05/25/18 07:22 05/25/18 07:30 Sodium Level 145 mmol/L (136-145) Potassium Level 3.5 mmol/L (3.5-5.1) Chloride Level 108 mmol/L (98-107) Carbon Dioxide Level 26 mmol/L (21-32) Anion Gap 11 (6-14) Blood Urea Nitrogen 16 mg/dL (7-20) Creatinine 0.9 mg/dL (0.6-1.0) Estimated GFR (Cockcroft-Gault) 64.1 Glucose Level 91 mg/dL (70-99) Calcium Level 8.7 mg/dL (8.5-10.1) White Blood Count 4.6 x10^3/uL (4.0-11.0) Red Blood Count 4.23 x10^6/uL (3.50-5.40) Hemoglobin 11.9 g/dL (12.0-15.5) Hematocrit 34.4 % (36.0-47.0) Mean Corpuscular Volume 81 fL (79-100) Mean Corpuscular Hemoglobin 28 pg (25-35) Mean Corpuscular Hemoglobin Concent 35 g/dL (31-37) Red Cell Distribution Width 14.5 % (11.5-14.5) Platelet Count 151 x10^3/uL (140-400) Neutrophils (%) (Auto) 63 % (31-73) Lymphocytes (%) (Auto) 26 % (24-48) Monocytes (%) (Auto) 7 % (0-9) Eosinophils (%) (Auto) 3 % (0-3) Basophils (%) (Auto) 1 % (0-3) Neutrophils # (Auto) 2.9 x10^3uL (1.8-7.7) Lymphocytes # (Auto) 1.2 x10^3/uL (1.0-4.8) Monocytes # (Auto) 0.3 x10^3/uL (0.0-1.1) Eosinophils # (Auto) 0.2 x10^3/uL (0.0-0.7) Basophils # (Auto) 0.0 x10^3/uL (0.0-0.2) Medications Current Medications Albuterol Sulfate (Ventolin Neb Soln) 2.5 mg PRN Q4HRS PRN NEB WHEEZING; Start 05/24/18 at 12:00 Albuterol Sulfate (Ventolin Neb Soln) 2.5 mg Q4HRS NEB ; Start 05/24/18 at 12: 00; Stop 05/24/18 at 12:00; Status DC Albuterol/ Ipratropium (Duoneb) 3 ml RTQID NEB Last administered on 05/25/18at 07:37; Start 05/24/18 at 12:00 Lactobacillus Rhamnosus (Culturelle) 1 cap BID PO ; Start 05/25/18 at 09:00 Montelukast Sodium (Singulair) 10 mg QHS PO Last administered on 05/24/18at 22: 08; Start 05/24/18 at 21:00 Non-Formulary Medication (Albuterol Sulfate (Ventolin Hfa Inhaler)) 2 puff Q4HRS INH ; Start 05/24/18 at 12:00; Status UNV Non-Formulary Medication (Fluticasone/ Salmeterol (Advair 500-50 Diskus)) 1 puff BID IH ; Start 05/24/18 at 21:00; Status UNV Pantoprazole Sodium (Protonix) 40 mg DAILYAC PO Last administered on at 12:13; Start 05/24/18 at 11:30 Trazodone HCl (Desyrel) 100 mg QHS PO Last administered on 05/24/18at 22:08; Start 05/24/18 at 21:00 Vitals/I & O Vital Sign - Last 24 Hours 05/24/18 05/24/18 05/24/18 05/24/18 11:00 11:26 11:27 11:41 Temp 97.4 97.4 Pulse 57 55 55 Resp 18 B/P (MAP) 152/76 (101) 143/52 143/52 Pulse Ox 97 97 O2 Delivery Room Air Room Air 05/24/18 05/24/18 05/24/18 05/24/18 14:30 15:26 19:00 20:00 Temp 98.7 97.9 98.7 97.9 Pulse 66 71 Resp 18 18 B/P (MAP) 123/56 (78) 130/56 (80) Pulse Ox 95 96 96 O2 Delivery Room Air Room Air Room Air Room Air 05/24/18 05/24/18 05/24/18 05/25/18 20:24 20:26 23:00 03:00 Temp 97.8 98.7 97.8 98.7 Pulse 56 53 Resp 16 18 B/P (MAP) 104/42 (62) 113/46 (68) Pulse Ox 96 96 O2 Delivery Room Air Room Air Room Air Room Air 05/25/18 05/25/18 07:00 07:34 Temp 97.7 97.7 Pulse 67 Resp 18 B/P (MAP) 131/61 (84) Pulse Ox 97 96 O2 Delivery Room Air Room Air Intake and Output 05/24/18 05/24/18 05/25/18 15:00 23:00 07:00 Intake Total 180 ml 200 ml 500 ml Balance 180 ml 200 ml 500 ml JEAN CLAUDE MUNOZ MD May 25, 2018 10:22
--- NOTE | 2018-05-25 10:38 | RAD ---
Chest, 2 views, 05/25/2018: HISTORY: Bronchitis Comparison is made to a study from 05/23/2018. A left-sided transvenous pacemaker remains in place with 2 leads extending into the right heart. The heart size and pulmonary vascularity are normal. No pulmonary consolidation is seen. There is no evidence of pleural fluid. Moderate multilevel degenerative change is present in the spine. IMPRESSION: No acute cardiopulmonary abnormality is detected. Electronically signed by: Antonio Solomon MD (05/25/2018 10:35 AM) [facility]
[2018-05-25 11:00] VITALS: BP 131/65
[2018-05-25] MEDS: ASPIRIN CHEWABLE 81 MG TABLET. PO SCH (12:39)
[2018-05-25] MEDS: NAPROXEN 500 MG TABLET PO SCH ×2 (12:39→21:29)
[2018-05-25] MEDS: guaiFENesin DM 600/30MG 1 TAB TAB.ER.12H PO SCH ×2 (12:39→21:29)
[2018-05-25] MEDS: CYANOCOBALAMIN (VITAMIN B-12) 1,000 MCG TABLET. PO SCH (12:39)
[2018-05-25] MEDS: diphenhydrAMINE HCL 25 MG CAPSULE PO SCH ×3 (12:39→21:29)
[2018-05-25] MEDS: amLODIPine BESYLATE 10 MG TABLET PO SCH (12:40)
[2018-05-25] MEDS: LISINOPRIL 20 MG TABLET PO SCH (12:40)
[2018-05-25] MEDS: PANTOPRAZOLE 40 MG TABLET.DR. PO SCH (12:40)
[2018-05-25] MEDS: CITALOPRAM 20 MG TABLET. PO SCH ×2 (12:40→21:29)
[2018-05-25] MEDS: cefTRIAXone IV Push 1 GM VIAL. IVP SCH (12:41)
[2018-05-25] MEDS: ENOXAPARIN 40 MG/0.4 ML SYRINGE. SQ SCH (12:42)
[2018-05-25] MEDS: LACTOBACILLUS RHAMNOSUS GG 1 CAPSULE. PO SCH ×2 (12:57→21:29)
[2018-05-25 15:00] VITALS: BP 132/63
[2018-05-25 19:00] VITALS: BP 121/68
[2018-05-25] MEDS: traZODone 100 MG TABLET. PO SCH (21:29)
[2018-05-25] MEDS: MONTELUKAST SODIUM 10 MG TABLET. PO SCH (21:29)
[2018-05-25 23:00] VITALS: BP 130/70
[2018-05-26 03:00] VITALS: BP 100/46
[2018-05-26 07:00] VITALS: BP 130/62
[2018-05-26] MEDS ORDERED: MORPHINE SULFATE 2 MG/ML VIAL. IV PRN (07:00)
[2018-05-26] MEDS ORDERED: fentaNYL PF VIAL 100 MCG/2 ML VIAL IV PRN ×2 (07:00)
[2018-05-26] MEDS ORDERED: HYDROmorphone 2 MG/ML VIAL IV PRN (07:00)
[2018-05-26] MEDS ORDERED: LIDOCAINE 1% PF 2 ML VIAL. ID PRN (07:00)
[2018-05-26] MEDS ORDERED: ONDANSETRON PF 4 MG/2 ML VIAL. IV PRN (07:00)
[2018-05-26] MEDS: IV RINGERS,LACTATED 1000ML 1,000 ML IV SCH ×2 (07:00→14:37)
[2018-05-26] MEDS ORDERED: PROCHLORPERAZINE 10 MG/2 ML VIAL. IV PRN (07:00)
[2018-05-26] MEDS: BUDESONIDE 0.5 MG/2 ML NEBU. NEB SCH ×2 (07:05→20:00)
[2018-05-26] MEDS: IPRATRPIUM/ALBUTEROL 0.5/2.5MG 3 ML NEBU. NEB SCH ×4 (07:05→20:00)
[2018-05-26] MEDS: PANTOPRAZOLE 40 MG TABLET.DR. PO SCH (07:30)
[2018-05-26] MEDS: CYANOCOBALAMIN (VITAMIN B-12) 1,000 MCG TABLET. PO SCH ×2 (09:00→18:07)
[2018-05-26] MEDS: CITALOPRAM 20 MG TABLET. PO SCH ×2 (09:00→21:00)
[2018-05-26] MEDS: guaiFENesin DM 600/30MG 1 TAB TAB.ER.12H PO SCH ×2 (09:00→21:00)
[2018-05-26] MEDS: amLODIPine BESYLATE 10 MG TABLET PO SCH ×2 (09:00→18:08)
[2018-05-26] MEDS: LISINOPRIL 20 MG TABLET PO SCH ×2 (09:00→18:08)
[2018-05-26] MEDS: NAPROXEN 500 MG TABLET PO SCH ×2 (09:00→21:00)
[2018-05-26] MEDS: diphenhydrAMINE HCL 25 MG CAPSULE PO SCH ×3 (09:00→21:00)
[2018-05-26] MEDS: ASPIRIN CHEWABLE 81 MG TABLET. PO SCH ×2 (09:00→18:07)
[2018-05-26] MEDS: LACTOBACILLUS RHAMNOSUS GG 1 CAPSULE. PO SCH ×2 (09:00→21:00)
[2018-05-26] MEDS: ENOXAPARIN 40 MG/0.4 ML SYRINGE. SQ SCH (09:29)
--- NOTE | 2018-05-26 09:57 | PDOC ---
PROGRESS NOTES Subjective Subjective feels better today Objective Objective Vital Signs Date Time Temp Pulse Resp B/P (MAP) Pulse Ox O2 Delivery O2 Flow Rate FiO2 05/26/18 07:05 95 Room Air 05/26/18 07:00 97.8 68 18 130/62 (84) 97.8 Intake and Output 05/26/18 07:00 Intake Total 1160 ml Balance 1160 ml Intake Oral 1160 ml # Voids 5 Physical Exam Abdomen: Soft, No tenderness Heart: Regular rate (SR), Normal S1, Normal S2, No murmurs Extremities: No cyanosis, No edema General: Alert, Oriented X3, Cooperative, No acute distress HEENT: Atraumatic, Mucous membr. moist/pink Lungs: Clear to auscultation, Normal air movement MUSCULOSKELETAL: Osteoarthritic changes both hands Neuro: Normal speech, Sensation intact Psych/Mental Status: Mental status NL, Mood NL Skin: No breakdown, No significant lesion Assessment Assessment FINAL IMPRESSION: 1. Chest pain.?GERD 2. Possible gastroesophageal reflux disease. 3. History of pacemaker. 4. Hypertension. 5. Hyperlipidemia. 6. Dizziness, possibly vestibular. 7. Urinary tract infection. 8. Possible bronchitis. PLAN: iv Rocephin for bronchitis ECHO good lvf EGD in amFINAL IMPRESSION: 1. Mental status changes secondary to missing dialysis. 2. End-stage renal disease, on dialysis Wednesday, and Wednesday and missed his dialysis on Wednesday and Wednesday. 3. Hyponatremia. 4. Worsening kidney failure. 5. Brittle diabetes. 6. Previous stroke. 7. Seizures from stroke. 8. Dementia, progressive. 9. Hypertension. 10. Hyperlipidemia. 11. General decline. PLAN: EGD today. cxr clear labs good. d/c home later today. po keflex for bronchitis Plan at this time was admit to hospital, seen by Cardiology. Cardiac enzymes, EKG, labs, echo and pacemaker interrogation. We will also have a GI consult for EGD and IV Rocephin for UTI and bronchitis and DuoNebs and see how the patient's condition improves. Comment Review of Relevant I have reviewed the following items beverly (where applicable) has been applied. Medications Current Medications Fentanyl Citrate (Fentanyl 2ml Vial) 25 mcg PRN Q5MIN PRN IV MILD PAIN; Start 05/26/18 at 07:00; Stop 05/27/18 at 06:59 Fentanyl Citrate (Fentanyl 2ml Vial) 50 mcg PRN Q5MIN PRN IV MODERATE TO SEVERE PAIN; Start 05/26/18 at 07:00; Stop 05/27/18 at 06:59 Hydromorphone HCl (Dilaudid) 0.5 mg PRN Q10MIN PRN IV SEV PAIN, Second choice; Start 05/26/18 at 07:00; Stop 05/27/18 at 06:59 Lidocaine HCl (Xylocaine-Mpf 1% 2ml Vial) 2 ml PRN 1X PRN ID IV START; Start 05/26/18 at 07:00; Stop 05/27/18 at 06:59 Morphine Sulfate (Morphine Sulfate) 1 mg PRN Q10MIN PRN IV SEVERE PAIN; Start 05/26/18 at 07:00; Stop 05/27/18 at 06:59 Ondansetron HCl (Zofran) 4 mg PRN Q6HRS PRN IV NAUSEA/VOMITING; Start at 07:00; Stop 05/27/18 at 06:59 Prochlorperazine Edisylate (Compazine) 5 mg PACU PRN PRN IV NAUSEA, MRX1; Start 05/26/18 at 07:00; Stop 05/27/18 at 06:59 Ringer's Solution 1,000 ml @ 30 mls/hr Q24H IV ; Start 05/26/18 at 07:00; Stop 05/26/18 at 18:59 Vitals/I & O Vital Sign - Last 24 Hours 05/25/18 05/25/18 05/25/18 05/25/18 11:00 11:25 12:40 12:40 Temp 98.5 98.5 Pulse 69 67 67 Resp 18 B/P (MAP) 131/65 (87) 131/61 131/61 Pulse Ox 96 O2 Delivery Room Air Room Air 05/25/18 05/25/18 05/25/18 05/25/18 15:00 15:37 19:00 19:11 Temp 98.0 97.4 98.0 97.4 Pulse 65 70 Resp 18 18 B/P (MAP) 132/63 (86) 121/68 (85) Pulse Ox 97 96 95 96 O2 Delivery Room Air Room Air Room Air Room Air 10/24/05/25/18 05/25/18 05/25/18 19:28 21:29 22:29 23:00 Temp 97.7 97.7 Pulse 68 Resp 17 B/P (MAP) 130/70 (90) Pulse Ox 96 96 O2 Delivery Room Air Room Air Room Air Room Air 05/26/18 05/26/18 05/26/18 03:00 07:00 07:05 Temp 97.9 97.8 97.9 97.8 Pulse 56 68 Resp 18 18 B/P (MAP) 100/46 (64) 130/62 (84) Pulse Ox 95 93 95 O2 Delivery Room Air Room Air Room Air Intake and Output 05/25/18 05/25/18 05/26/18 15:00 23:00 07:00 Intake Total 360 ml 300 ml 500 ml Balance 360 ml 300 ml 500 ml JEAN CLAUDE MUNOZ MD May 26, 2018 09:57
[2018-05-26] MEDS ORDERED: CEPH-264 PO (10:00)
[2018-05-26] MEDS ORDERED: Pantoprazole PO (10:00)
[2018-05-26] MEDS: cefTRIAXone IV Push 1 GM VIAL. IVP SCH (10:04)
[2018-05-26 11:00] VITALS: BP 119/55
[2018-05-26] MEDS ORDERED: PROPOFOL 40 ML IV ONE (14:44)
--- NOTE | 2018-05-26 14:55 | PDOC4 ---
PROCEDURE Procedure EGD/biopsies Ind: NCCP/chornic heartburn Meds: per anesthesia Findings: E--Healed, erosive at baseline, reflux esophagitis at 36cm G--small HH, otherwise normal. Biopsies antrum. D--Normal to second portion. Vish. well. IMP: Healed reflux esophagitis. Small HH. REC: Continue PPI. Await biopsies. Resume diet, meds as before. OK to go home; would appreciate f/u in a few weeks re; biopsies. JOSETTE CURRY MD May 26, 2018 14:55
[2018-05-26 15:00] VITALS: BP 122/74
[2018-05-26 19:00] VITALS: BP 148/67
[2018-05-26] MEDS: MONTELUKAST SODIUM 10 MG TABLET. PO SCH (21:00)
[2018-05-26] MEDS: traZODone 100 MG TABLET. PO SCH (21:00)
[2018-05-26] MEDS ORDERED: CEFPODOXIME PROXETIL 100 MG TABLET. PO SCH (21:00)
[2018-05-26 23:00] VITALS: BP 135/67
--- NOTE | 2018-05-30 14:07 | PATHOLOGY ---
[facility] Accession Number: [id number] . 01 Material submitted: . ANTRUM . 01 Clinical history: . Atypical CP, rule out H. pylori . 02 Diagnosis: Gastric biopsies, antrum: - Chronic gastritis, mild. (JPM:eleazar; 05/30/2018) QMS/05/30/2018 . 02 Comment: Sections of the gastric biopsy reveal segments of gastric antral-body transition mucosa showing congestion and mild chronic inflammation. A properly controlled immunoperoxidase stain for Helicobacter is negative for Helicobacter organisms. There is no evidence of malignancy. (JPM:eleazar; 05/30/2018) . . Special stain performed: Immunoperoxidase stain for Helicobacter . 02 Electronically signed: . Ermias Birmingham MD, Pathologist NPI- [id number] . 01 Gross description: . Received in formalin labeled "Slade, Jaswantella, antrum," are 2 segments of nuñez soft tissue measuring 1.2 x 0.2 x 0.2 cm in aggregate dimensions and ranging from 0.4 to 0.8 cm in maximum dimension. The specimen is submitted entirely in cassette A1. (TSD; 05/27/2018) TOB/TOB . 02 Pathologist provided ICD-10: K29.50 . 02 CPT . 621300, N63192 Specimen Comment: A courtesy copy of this report has been sent to Specimen Comment: [phone], , . Specimen Comment: Report sent to ,DR MUNOZ / DR EDDY Specimen Comment: A duplicate report has been generated due to demographic updates. Performed at: [address] [place] [id number] MD Dwayne Yarbrough MD Phone: [phone] Performed at: [address] [id number] MD Ermias Birmingham MD Phone: [phone]
== END 2018-05-27 01:28 | disposition home or self-care (01) | DRG 391 ==
LOC: ER 20:39 → 5 NORTH 23:30
PROVIDERS: ADMIT Internal Medicine; ATTEND Internal Medicine
PROC: 0DB68ZX Excision of Stomach, Via Natural or Artificial Opening Endoscopic, Diagnostic (ICD-10-PCS; principal; 2018-05-23)
PROC: 4B02XSZ Measurement of Cardiac Pacemaker, External Approach (ICD-10-PCS; 2018-05-23)
DX: K21.0 Gastro-esophageal reflux disease with esophagitis (principal); N18.6 End stage renal disease; J45.901 Unspecified asthma with (acute) exacerbation; N39.0 Urinary tract infection, site not specified; I12.0 Hypertensive chronic kidney disease with stage 5 chronic kidney disease or end stage renal disease; E87.1 Hypo-osmolality and hyponatremia; R07.89 Other chest pain; J20.9 Acute bronchitis, unspecified; F03.90 Unspecified dementia, unspecified severity, without behavioral disturbance, psychotic disturbance, mood disturbance, and anxiety; Z88.8 Allergy status to other drugs, medicaments and biological substances; R53.81 Other malaise; K44.9 Diaphragmatic hernia without obstruction or gangrene; E78.5 Hyperlipidemia, unspecified; J06.9 Acute upper respiratory infection, unspecified; M19.90 Unspecified osteoarthritis, unspecified site; Z80.9 Family history of malignant neoplasm, unspecified; Z82.49 Family history of ischemic heart disease and other diseases of the circulatory system; Z95.0 Presence of cardiac pacemaker; Z88.0 Allergy status to penicillin; Z79.899 Other long term (current) drug therapy; Z98.51 Tubal ligation status; Z99.2 Dependence on renal dialysis; Z86.73 Personal history of transient ischemic attack (TIA), and cerebral infarction without residual deficits
CPT/HCPCS: 36415; 43239; 71045; 71046; 80048; 80061; 81001; 83880; 84443; 84484; 85025; 87086; 88305; 88342; 93005; 93306; 94640; 94760; 96360; J0696; J1650; J2704; J7040; J7120; J7613; J7620; J7626; Q0163; 99285-25

== ENCOUNTER 2019-06-17 23:28 | Emergency (ER) | payer OTHER ==
[~2019-06-17] VITALS: Ht 154.9 cm; Wt 81.2 kg
[~2019-06-17 23:28] MED LIST changes: +ALBU2.5V8 INH; +AMLO10TA8 PO; +CEPH-264 PO; +CYAN-25 PO; -CYAN10005 PO; +DOXY100T PO; +HYDR-3164 PO; -HYDR-971 PO; +MONT10TA49 PO; -MONT10TA6 PO; +PRED50TA PO; +Pantoprazole PO
[2019-06-17 23:59] LABS: BASO # 0.1 x10^3/uL (0.0-0.2); BASO % 1 % (0-3); EOS # 0.4 x10^3/uL (0.0-0.7); EOS % 6 % (0-3); HEMATOCRIT 36.4 % (36.0-47.0); LYMPH # 1.8 x10^3/uL (1.0-4.8); LYMPH % 28 % (24-48); MEAN CORPUSCULAR HEMOGLOBIN 27 pg (25-35); MEAN CORPUSCULAR HGB CONC 33 g/dL (31-37); MEAN CORPUSCULAR VOLUME 82 fL (79-100); MONO # 0.5 x10^3/uL (0.0-1.1); MONO % 7 % (0-9); NEUT # 3.8 x10^3/uL (1.8-7.7); NEUT % 59 % (31-73); PLATELET COUNT 175 x10^3/uL (140-400); RED BLOOD COUNT 4.46 x10^6/uL (3.50-5.40); RED CELL DISTRIBUTION WIDTH 13.7 % (11.5-14.5); WHITE BLOOD COUNT 6.4 x10^3/uL (4.0-11.0)
[2019-06-18 00:07] LABS: CALCIUM 8.7 mg/dL (8.5-10.1); GFR 56.6; POTASSIUM 3.6 mmol/L (3.5-5.1)
--- NOTE | 2019-06-18 00:08 | RAD ---
Indication:Chest pain TECHNIQUE:Portable AP chest X-ray COMPARISON: 03/25/2019 FINDINGS: Stable position of left chest wall cardiac pacer with its lead projecting over the heart. Heart is normal in size. Interstitial opacities are seen bilaterally with prominent bronchial markings. No pneumothorax or pleural effusion. Visualized bony thorax within normal limits. IMPRESSION: Stable prominence of bilateral bronchial markings. These may be chronic or secondary to atypical/viral infection/bronchitis. Electronically signed by: Braulio Rosas DO (06/18/2019 12:05 AM) [facility]
[2019-06-18 00:13] LABS: ALBUMIN 3.7 g/dL (3.4-5.0); ALBUMIN/GLOBULIN RATIO 1.1 (1.0-1.7); TOTAL BILIRUBIN 0.2 mg/dL (0.2-1.0); TOTAL PROTEIN 7.2 g/dL (6.4-8.2)
[2019-06-18] MEDS ORDERED: KETOROLAC 15 MG/ML VIAL. IVP ONE (00:15)
[2019-06-18] MEDS ORDERED: methylPREDNISolone SOD SUCC PF 125 MG/2 ML VIAL. IV ONE (00:15)
--- NOTE | 2019-06-18 00:25 | PHYS DOC ---
Past Medical History Past Medical History: Asthma, COPD, GERD, Heart Disease, Hypertension Past Surgical History: Pacemaker, Other Additional Past Surgical Histo: pacemaker Alcohol Use: None Drug Use: None Adult General Chief Complaint Chief Complaint: CHEST PAIN [facility] HPI Patient is a 59 year old male with history of anxiety, COPD and asthma who presents with chest wall pain. Patient reports intermittent daily chest wall pain located under right axilla for the past week. Symptoms worse with pa lpation, coughing sneezing and deep breathing. Patient also reports left to her chest wall pain described as sharp starting earlier this evening. Pain started after doing chores and being outdoors in the cool air. Pain is currently resolved. Patient denies nausea, vomiting, chills and sweats. No leg pain or swelling. No history of DVT or PE. Patient is a pacemaker due to underlying [place] arrhythmia. Denies history of coronary disease. Previous negative cardiac stress test in past 3 years. Patient invited by her PCP for chest wall pain in the emergency Department in the past 4 months for the same. No other acute symptoms or complaints. [] Review of Systems Review of Systems ROS as per HPI All other systems were reviewed and found to be within normal limits, except as documented in this note. Current Medications Current Medications Current Medications Medications (Trade) Dose Ordered Sig/Paula Start Time Stop Time Status Last Admin Dose Admin Info (CONTRAST GIVEN -- Rx MONITORING) 1 each PRN DAILY PRN 06/18/19 03:00 06/20/19 02:59 Iohexol (Omnipaque 350 Mg/ml) 90 ml 1X ONCE 06/18/19 03:00 06/18/19 03:01 DC 06/18/19 02:45 90 ML Ketorolac Tromethamine (Toradol 15mg Vial) 15 mg 1X ONCE 06/18/19 00:15 06/18/19 00:16 DC 06/18/19 00:40 15 MG Methylprednisolone Sodium Succinate (SOLU-Medrol 125MG VIAL) 125 mg 1X ONCE 06/18/19 00:15 06/18/19 00:16 DC 06/18/19 00:40 125 MG Allergies Allergies Allergies Coded Allergies Type Severity Reaction Last Updated Verified piperacillin Allergy Unknown rash 05/26/18 No tazobactam Allergy Unknown rash 05/26/18 No Physical Exam Physical Exam Constitutional: Well developed, well nourished, no acute distress, non-toxic appearance. [] HENT: Normocephalic, atraumatic, bilateral external ears normal, oropharynx moist, no oral exudates, nose normal. [] Eyes: PERRLA, EOMI, conjunctiva normal, no discharge. [] Neck: Normal range of motion, no tenderness, supple, no stridor. [] Cardiovascular:Heart rate regular rhythm, no murmur [] Lungs & Thorax: Bilateral breath sounds clear to auscultation [] Abdomen: Bowel sounds normal, soft, no tenderness, no masses, no pulsatile masses. [] Skin: Warm, dry, no erythema, no rash. [] Back: No tenderness, no CVA tenderness. [] Extremities: No tenderness, no cyanosis, no clubbing, ROM intact, no edema. [] Neurologic: Alert and oriented X 3, normal motor function, normal sensory function, no focal deficits noted. [] Psychologic: Affect normal, judgement normal, mood normal. [] Current Patient Data Vital Signs Vital Signs Date Time Temp Pulse Resp B/P (MAP) Pulse Ox O2 Delivery O2 Flow Rate FiO2 06/17/19 23:35 62 142/67 (92) Room Air 06/17/19 23:30 97.9 18 97 97.9 Lab Values Laboratory Tests Test 06/17/19 23:50 06/18/19 00:01 White Blood Count 6.4 x10^3/uL (4.0-11.0) Red Blood Count 4.46 x10^6/uL (3.50-5.40) Hemoglobin 12.0 g/dL (12.0-15.5) Hematocrit 36.4 % (36.0-47.0) Mean Corpuscular Volume 82 fL (79-100) Mean Corpuscular Hemoglobin 27 pg (25-35) Mean Corpuscular Hemoglobin Concent 33 g/dL (31-37) Red Cell Distribution Width 13.7 % (11.5-14.5) Platelet Count 175 x10^3/uL (140-400) Neutrophils (%) (Auto) 59 % (31-73) Lymphocytes (%) (Auto) 28 % (24-48) Monocytes (%) (Auto) 7 % (0-9) Eosinophils (%) (Auto) 6 % (0-3) H Basophils (%) (Auto) 1 % (0-3) Neutrophils # (Auto) 3.8 x10^3/uL (1.8-7.7) Lymphocytes # (Auto) 1.8 x10^3/uL (1.0-4.8) Monocytes # (Auto) 0.5 x10^3/uL (0.0-1.1) Eosinophils # (Auto) 0.4 x10^3/uL (0.0-0.7) Basophils # (Auto) 0.1 x10^3/uL (0.0-0.2) Sodium Level 141 mmol/L (136-145) Potassium Level 3.6 mmol/L (3.5-5.1) Chloride Level 105 mmol/L (98-107) Carbon Dioxide Level 28 mmol/L (21-32) Anion Gap 8 (6-14) Blood Urea Nitrogen 18 mg/dL (7-20) Creatinine 1.0 mg/dL (0.6-1.0) Estimated GFR (Cockcroft-Gault) 56.6 BUN/Creatinine Ratio 18 (6-20) Glucose Level 104 mg/dL (70-99) H Calcium Level 8.7 mg/dL (8.5-10.1) Magnesium Level 2.0 mg/dL (1.8-2.4) Total Bilirubin 0.2 mg/dL (0.2-1.0) Aspartate Amino Transferase (AST) 14 U/L (15-37) L Alanine Aminotransferase (ALT) 13 U/L (14-59) L Alkaline Phosphatase 62 U/L (46-116) Troponin I Quantitative < 0.017 ng/mL (0.000-0.055) Total Protein 7.2 g/dL (6.4-8.2) Albumin 3.7 g/dL (3.4-5.0) Albumin/Globulin Ratio 1.1 (1.0-1.7) Thyroid Stimulating Hormone (TSH) 2.669 uIU/mL (0.358-3.74) D-Dimer (Darlene) 0.68 ug/mlFEU (0.00-0.50) H Laboratory Tests 06/17/19 23:50 Laboratory Tests 06/17/19 23:50 EKG EKG [EKG: Normal sinus rhythm, no acute ST-T wave changes.] Radiology/Procedures Radiology/Procedures [X-ray: No acute cardiopulmonary disease. CTA chest: No evidence of pulmonary embolus] Course & Med Decision Making Course & Med Decision Making Pertinent Labs and Imaging studies reviewed. (See chart for details) [Atypical chest pain worse after being outdoors in cool weather. History of asthma/COPD. Patient denies exertional chest pain or other anginal symptoms. P aaron's been evaluated multiple times in the ED and by her PCP for pleuritic type chest pain. Patient resting comfortably pain free. EKG, troponin are negative. CTA negative for presence of PE. Recommendations are for supportive care and PCP follow-up. Return cautions reviewed. Patient verbalizes u nderstanding and agreement discharge instructions prior to departure.] Dragon Disclaimer Dragon Disclaimer This electronic medical record was generated, in whole or in part, using a voice recognition dictation system. Departure Departure Impression: Primary Impression: Chest pain Additional Impression: Pleurisy Disposition: HOME, SELF-CARE Condition: STABLE Referrals: JEAN CLAUDE MUNOZ MD (PCP) Patient Instructions: Chest Pain (Nonspecific), Pleurisy, [id number] Additional Instructions: Please use inhalers shortness of breath and take prednisone as directed. Take Tylenol for pain and tramadol as needed for additional relief. Follow-up with your PCP in 3-5 days for reevaluation if symptoms persist. Return to the ED if new or worsening symptoms. Scripts Tramadol Hcl (TRAMADOL HCL) 50 Mg Tablet 50 MG PO Q6H PRN for PAIN for 3 Days, #5 TAB 0 Refills Prov: JACEK URIOSTEGUI DO 06/18/19 Prednisone (PREDNISONE) 50 Mg Tablet 1 TAB PO DAILY, #5 TAB Prov: JACEK URIOSTEGUI DO 06/18/19 Problem Qualifiers JACEK URIOSTEGUI DO Jun 18, 2019 00:25
[2019-06-18 02:43] VITALS: BP 151/70
--- NOTE | 2019-06-18 02:48 | RAD ---
PQRS Compliance statement: One or more of the following individualized dose reduction techniques were utilized for this examination: 1. Automated exposure control. 2. Adjustment of the mA and/or kV according to patient size. 3. Use of iterative reconstruction technique. Indication:Shortness of breath. Rule out PE. TECHNIQUE: CT angiogram of the chest with IV contrast with multiplanar MIP reformats. COMPARISON: None FINDINGS: Diagnostic quality PE study. There are no central, segmental or subsegmental filling defects in the pulmonary arteries. Heart is normal in size. Pacemaker leads are seen in the right heart. No pericardial or pleural effusion. No enlarged axillary, mediastinal lymph nodes or hilar lymph nodes. Calcified left hilar lymph nodes likely old healed than a metastatic disease. Motion artifact is seen in the lungs limiting optimal evaluation. Lungs are grossly clear. Visualized sections through the liver, spleen, pancreas, adrenals and upper kidneys within within normal limits. No suspicious bony lesion. IMPRESSION: No PE. Lungs are grossly clear. Electronically signed by: Braulio Rosas DO (06/18/2019 2:46 AM) [facility]
[2019-06-18] MEDS ORDERED: CONTRAST GIVEN. MC PRN (03:00)
[2019-06-18] MEDS ORDERED: IOHEXOL 350 MG/ML 100 ML VIAL. IV ONE (03:00)
[2019-06-18] MEDS ORDERED: TRAM50TA PO (03:15)
[2019-06-18] MEDS ORDERED: PRED50TA PO (03:15)
--- NOTE | 2019-06-19 06:53 | EKG ---
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
== END 2019-06-18 03:35 | disposition home or self-care (01) ==
LOC: ER 23:28
DX: R09.1 Pleurisy (principal); M79.621 Pain in right upper arm; J44.9 Chronic obstructive pulmonary disease, unspecified; I11.9 Hypertensive heart disease without heart failure; K21.9 Gastro-esophageal reflux disease without esophagitis; Z95.0 Presence of cardiac pacemaker; Z88.1 Allergy status to other antibiotic agents; Z88.8 Allergy status to other drugs, medicaments and biological substances
CPT/HCPCS: 36415; 71045; 71275; 80053; 83735; 84443; 84484; 85025; 85379; 93005; 96374; 96375; 99285; J1885; J2930; Q9967

== ENCOUNTER 2019-08-18 18:36 | Emergency (ER) | payer OTHER ==
[~2019-08-18] VITALS: Ht 154.9 cm; Wt 69.9 kg
[~2019-08-18 18:36] MED LIST changes: +TRAM50TA PO; +TRAZ-123 PO; -TRAZ-86 PO
[2019-08-18] MEDS ORDERED: HYDROcodone/APAP 5/325MG 1 TAB TABLET PO ONE (19:45)
[2019-08-18 20:55] VITALS: BP 163/71
[2019-08-18] MEDS ORDERED: HYDR-3164 PO (21:02)
[2019-08-18] MEDS ORDERED: CYCL10TA2 PO (21:02)
--- NOTE | 2019-08-18 21:02 | PHYS DOC ---
Past Medical History Past Medical History: Asthma, COPD, GERD, Heart Disease, Hypertension Past Surgical History: Pacemaker, Other Additional Past Surgical Histo: pacemaker Alcohol Use: None Drug Use: None Adult General Chief Complaint Chief Complaint: MECHANICAL FALL HPI HPI Patient is a 59 year old nonsmoker female with history of hypertension, GERD, asthma, COPD who presents with complaint of fall and back pain. Patient states she lost her balance and had a fall on her kitchen yesterday and hit right side of posterior mid back against the Top without head injury or loss of consciousness. Patient complaining of pain in the posterior thoracic area since yesterday as a constant pain that getting worse with movements and taking deep breaths. Patient rated her pain 9/10 and states that she took some Tylenol with mild improvement of her pain. Patient denies shortness of breath, fever and chills, cough and congestion, nausea and vomiting, focal neuro deficit. Patient is up-to-date with tetanus immunization. Review of Systems Review of Systems Constitutional: Denies fever or chills [] Eyes: Denies change in visual acuity, redness, or eye pain [] HENT: Denies nasal congestion or sore throat [] Respiratory: Denies cough or shortness of breath [] Cardiovascular: No additional information not addressed in HPI [] GI: Denies abdominal pain, nausea, vomiting, bloody stools or diarrhea [] : Denies dysuria or hematuria [] Musculoskeletal: Reports back pain, denies joint pain [] Integument: Denies rash or skin lesions [] Neurologic: Denies headache, focal weakness or sensory changes [] Endocrine: Denies polyuria or polydipsia [] All other systems were reviewed and found to be within normal limits, except as documented in this note. Current Medications Current Medications Current Medications Medications (Trade) Dose Ordered Sig/Paula Start Time Stop Time Status Last Admin Dose Admin Acetaminophen/ Hydrocodone Bitart (Lortab 5/325) 1 tab 1X ONCE 08/18/19 19:45 08/18/19 19:46 DC 08/18/19 19:41 1 TAB Allergies Allergies Allergies Coded Allergies Type Severity Reaction Last Updated Verified piperacillin Allergy Unknown rash 05/26/18 No tazobactam Allergy Unknown rash 05/26/18 No Physical Exam Physical Exam Constitutional: Well developed, well nourished, mild distress, non-toxic appearance. [] HENT: Normocephalic, atraumatic. Eyes: PERRLA, EOMI, conjunctiva normal, no discharge. [] Neck: Normal range of motion, no tenderness, supple, no stridor. [] Cardiovascular:Heart rate regular rhythm, no murmur [] Lungs & Thorax: Contusion and abrasion of right posterior chest wall without subcutaneous emphysema or crepitation, Bilateral breath sounds clear to auscultation [] Abdomen: Bowel sounds normal, soft, no tenderness, no masses, no pulsatile masses. [] Skin: Warm, dry, no erythema, no rash. [] Back: No tenderness, no CVA tenderness. [] Extremities: No tenderness, no cyanosis, no clubbing, ROM intact, no edema. [] Neurologic: Alert and oriented X 3, no focal deficits noted. [] Psychologic: Affect normal, judgement normal, mood normal. [] Current Patient Data Vital Signs Vital Signs Date Time Temp Pulse Resp B/P (MAP) Pulse Ox O2 Delivery O2 Flow Rate FiO2 08/18/19 20:55 63 16 96 08/18/19 19:06 98.6 167/75 (105) Room Air 98.6 EKG EKG [] Radiology/Procedures Radiology/Procedures [address] [address] IMAGING REPORT Signed PATIENT: MEMO PIERCE ACCOUNT: [id number] : 1960 LOCATION: ER AGE: 59 SEX: F EXAM STATUS: DEP ER ORD. PHYSICIAN: LYLY HUNT MD REASON: fall PROCEDURE: LUMBAR SPINE 2-3V Exam: Lumbar spine 2 views INDICATION: Fall TECHNIQUE: Frontal and lateral views spine with spot magnification view of the lumbosacral junction Comparisons: Fall FINDINGS: Vertebral body heights and alignment are well-maintained. Mild facet arthropathy noted in the lower lumbar spine. Visualized soft tissues are IMPRESSION: Mild spondylotic changes lumbar spine. Electronically signed by: Gisele Novoa MD (08/18/2019 11:07 PM) [facility] DICTATED and SIGNED BY: GISELE NOVOA MD DATE: 08/18/19 [address] [place] [address] IMAGING REPORT Signed PATIENT: MEMO PIERCE ACCOUNT: [id number] : 1960 LOCATION: ER AGE: 59 SEX: F EXAM STATUS: DEP ER ORD. PHYSICIAN: LYLY HUNT MD REASON: fall PROCEDURE: RIBS RIGHT AND PA CHEST Exam: Right RIBS with PA chest INDICATION: Fall TECHNIQUE: Frontal view of the chest with frontal and oblique views of the right ribs Comparisons: None FINDINGS: Pacer with leads terminating the right ventricle. The cardiomediastinal silhouette and pulmonary vessels are within normal limits. The lung and pleural spaces are clear. No displaced rib fractures. IMPRESSION: 1. No acute cardiopulmonary process. 2. No displaced rib fractures. Electronically signed by: Gisele Novoa MD (08/18/2019 11:04 PM) [facility] DICTATED and SIGNED BY: GISELE NOVOA MD DATE: 08/18/192303 Course & Med Decision Making Course & Med Decision Making Pertinent Imaging studies reviewed. (See chart for details) Personal patient in ER showed 59-year-old female patient with a fall yesterday and injury to right posterior chest wall. X-ray of ribs and lumbar spine did not show acute fracture. Patient treated with hydrocodone in ER and felt better. Patient was advised to increase fluid intake and plan discharge home with diagnose of chest wall contusion. I've spoken with the patient and/or caregivers. I've explained the patient's condition, diagnosis and treatment plan based on information available to me at this time. I've answered the patient's and/or caregivers questions and addressed any concerns. The patient and/or caregivers have a good understanding the chey[place] ent's diagnosis, condition and treatment plan as can be expected at this point. Vital signs have been stabilized. The patient's condition is stable for discharge from the emergency department. The patient will pursue further outpatient evaluation with her primary care provider or other designated consulting physician as outlined in the discharge instructions. Patient and/or caregivers are agreeable to this plan of care and follow-up instructions have been explained in detail. The patient and/or caregivers have received these instructions in written format and expressed understanding of these discharge instructions. The patient and her caregivers are aware that if any significant change in condition or worsening of symptoms should prompt him to immediately return to this of the closest emergency department. If an emergent department is not readily available I would encourage him to call 911. Nimco Disclaimer [place] Disclaimer This electronic medical record was generated, in whole or in part, using a voice recognition dictation system. Departure Departure Impression: Primary Impression: Chest wall contusion Additional Impression: Fall at home Disposition: HOME, SELF-CARE (at 2100) Condition: IMPROVED Referrals: JEAN CLAUDE MUNOZ MD (PCP) Patient Instructions: Chest Contusion, Fall Prevention and Home Safety Additional Instructions: Drink plenty of liquids Follow-up with your primary care physician in 3-5 days Return to ER if not getting better Apply ice on the affected area Thank you for visiting [facility]. We appreciate you trusting us with your care. If any additional problems come up don't hesitate to return to visit us. Please follow up with your primary care provider so they can plan additional care if needed and know about the problem that you had. If symptoms worsen come back to the Emergency Department. Any concerning symptoms that start such as chest pain, shortness of air, weakness or numbness on one side of the body, running high fevers or any other concerning symptoms return to the ER. Scripts Hydrocodone/Apap 5-325 (NORCO 5-325 TABLET) 1 Each Tablet 1 TAB PO PRN Q6HRS PRN for PAIN, #15 TAB 0 Refills Prov: LYLY HUNT MD 08/18/19 Cyclobenzaprine Hcl (CYCLOBENZAPRINE HCL) 10 Mg Tablet 1 TAB PO TID, #21 TAB Prov: LYLY HUNT MD 08/18/19 Problem Qualifiers Primary Impression: Chest wall contusion Encounter type: initial encounter Laterality: right Qualified Codes: S20.211A - Contusion of right front wall of thorax, initial encounter Additional Impression: Fall at home Encounter type: subsequent encounter Qualified Codes: W19.XXXD - Unspecified fall, subsequent encounter; Y92.009 - Unspecified place in unspecified non-institutional (private) residence as the place of occurrence of the external cause LYLY HUNT MD Aug 18, 2019 21:02
--- NOTE | 2019-08-18 23:07 | RAD ---
Exam: Right RIBS with PA chest INDICATION: Fall TECHNIQUE: Frontal view of the chest with frontal and oblique views of the right ribs Comparisons: None FINDINGS: Pacer with leads terminating the right ventricle. The cardiomediastinal silhouette and pulmonary vessels are within normal limits. The lung and pleural spaces are clear. No displaced rib fractures. IMPRESSION: 1. No acute cardiopulmonary process. 2. No displaced rib fractures. Electronically signed by: Gisele Macario MD (08/18/2019 11:04 PM) [facility]
--- NOTE | 2019-08-18 23:10 | RAD ---
Exam: Lumbar spine 2 views INDICATION: Fall TECHNIQUE: Frontal and lateral views spine with spot magnification view of the lumbosacral junction Comparisons: Fall FINDINGS: Vertebral body heights and alignment are well-maintained. Mild facet arthropathy noted in the lower lumbar spine. Visualized soft tissues are IMPRESSION: Mild spondylotic changes lumbar spine. Electronically signed by: Gisele Macario MD (08/18/2019 11:07 PM) [facility]
== END 2019-08-18 21:09 | disposition home or self-care (01) ==
LOC: ER 18:36
DX: S20.211A Contusion of right front wall of thorax, initial encounter (principal); M54.6 Pain in thoracic spine; M54.5 Low back pain; J44.9 Chronic obstructive pulmonary disease, unspecified; K21.9 Gastro-esophageal reflux disease without esophagitis; I11.9 Hypertensive heart disease without heart failure; Z95.0 Presence of cardiac pacemaker; Z88.1 Allergy status to other antibiotic agents; W18.39XA Other fall on same level, initial encounter; Y93.89 Activity, other specified; Y92.090 Kitchen in other non-institutional residence as the place of occurrence of the external cause; Y99.8 Other external cause status
CPT/HCPCS: 71101; 72100; 99284

== ENCOUNTER → 2020-05-16 | Outpatient (CLI) | payer OTHER ==
[~2020-05-16] MED LIST changes: +AMLO-187 PO; -AMLO10TA8 PO; +CYCL10TA2 PO
--- NOTE | 2020-05-17 12:57 | RAD ---
DATE: 05/16/2020 7:50 AM EXAM: DIGITAL SCREEN BILAT W/CAD HISTORY: Screening COMPARISON: 04/11/2018 Bilateral full field craniocaudal and mediolateral oblique images were obtained using digital technique. This study was interpreted with the benefit of Computerized Aided Detection (CAD). FINDINGS: Breast Density: FATTY The Breast Parenchyma is primarily fatty replaced. Breast parenchyma level density A. No suspicious masses, microcalcifications or architectural distortion is present to suggest malignancy in either breast. The visualized axillae are unremarkable. IMPRESSION: No mammographic evidence of malignancy. BI-RADS CATEGORY: 1 NEGATIVE RECOMMENDED FOLLOW-UP: 12M 12 MONTH FOLLOW-UP Annual screening mammography is recommended, unless clinically indicated sooner based on symptoms or change in physical exam. PQRS compliance statement: Patient information was entered into a reminder system with a target due date for the next mammogram. Mammography is a sensitive method for finding small breast cancers, but it does not detect them all and is not a substitute for careful clinical examination. A negative mammogram does not negate a clinically suspicious finding and should not result in delay in biopsying a clinically suspicious abnormality. "Our facility is accredited by the [employer] Mammography Program."
== END ==
LOC: MAMMO 07:39
PROVIDERS: ATTEND Internal Medicine
DX: Z12.31 Encounter for screening mammogram for malignant neoplasm of breast (principal)
CPT/HCPCS: 77067

== ENCOUNTER → 2020-06-06 | Outpatient (CLI) | payer OTHER ==
--- NOTE | 2020-06-06 11:53 | RAD ---
EXAM: Thoracic spine, 3 views; lumbar spine, 3 views HISTORY: Pain. COMPARISON: 08/18/2019 FINDINGS: Thoracic spine: 3 views of the thoracic spine are obtained. There is minimal thoracic dextroscoliosis and kyphosis. The vertebral bodies are normal in height. There is multilevel endplate remodeling with anterior spurring. There are cardiac pacemaker leads in expected position. Lumbar spine: 3 views lumbar spine are obtained. There is minimal grade 1 anterolisthesis of L4 on L5, measuring 2 mm. There is multilevel endplate remodeling. There is facet arthropathy predominantly at the mid lower lumbar levels. There is no acute osseous finding. IMPRESSION: 1. No acute osseous finding. 2. Multilevel degenerative change involving the thoracic and lumbar spine, described above. Electronically signed by: Meaghan Guerra MD (06/06/2020 11:50 AM) [id number]
== END ==
LOC: RAD 11:07
PROVIDERS: ATTEND Internal Medicine
DX: M47.815 Spondylosis without myelopathy or radiculopathy, thoracolumbar region (principal); M43.16 Spondylolisthesis, lumbar region; M40.294 Other kyphosis, thoracic region
CPT/HCPCS: 72072; 72100

== ENCOUNTER 2020-08-02 17:35 | Inpatient (IN) | payer OTHER ==
[~2020-08-02] VITALS: Ht 154.9 cm; Wt 83.7 kg
[~2020-08-02 17:35] MED LIST changes: +MORPHINE SULFATE 4 MG/ML VIAL. IV PRN
[2020-08-02] MEDS ORDERED: MORPHINE SULFATE 4 MG/ML VIAL. IV/SQ PRN (18:15)
[2020-08-02] MEDS ORDERED: IV NORMAL SALINE 1000ML BAG 1,000 ML IV ONE (18:15)
[2020-08-02 18:30] LABS: BASO # 0.1 x10^3/uL (0.0-0.2); BASO % 1 % (0-3); EOS # 0.3 x10^3/uL (0.0-0.7); EOS % 3 % (0-3); HEMATOCRIT 37.5 % (36.0-47.0); HEMOGLOBIN 12.4 g/dL (12.0-15.5); LYMPH # 1.3 x10^3/uL (1.0-4.8); LYMPH % 16 % (24-48); MEAN CORPUSCULAR HEMOGLOBIN 27 pg (25-35); MEAN CORPUSCULAR HGB CONC 33 g/dL (31-37); MEAN CORPUSCULAR VOLUME 81 fL (79-100); MONO # 0.6 x10^3/uL (0.0-1.1); MONO % 7 % (0-9); NEUT % 72 % (31-73); PLATELET COUNT 181 x10^3/uL (140-400); RED BLOOD COUNT 4.62 x10^6/uL (3.50-5.40); RED CELL DISTRIBUTION WIDTH 14.6 % (11.5-14.5); WHITE BLOOD COUNT 8.2 x10^3/uL (4.0-11.0)
[2020-08-02 18:38] LABS: PROTHROMBIN TIME PATIENT 13.3 SEC (11.7-14.0)
[2020-08-02 18:49] LABS: CALCIUM 9.1 mg/dL (8.5-10.1); CREATININE 0.8 mg/dL (0.6-1.0); GFR 72.9; POTASSIUM 3.6 mmol/L (3.5-5.1)
[2020-08-02 18:56] LABS: ALBUMIN 3.8 g/dL (3.4-5.0); ALBUMIN/GLOBULIN RATIO 1.1 (1.0-1.7); MAGNESIUM 2.2 mg/dL (1.8-2.4); TOTAL BILIRUBIN 0.5 mg/dL (0.2-1.0); TOTAL PROTEIN 7.3 g/dL (6.4-8.2)
--- NOTE | 2020-08-02 19:02 | RAD ---
EXAM: XR CHEST 1V 08/02/2020 6:20 PM CLINICAL INDICATION: Fever, shortness of breath COMPARISON: Chest radiograph 08/18/2019 TECHNIQUE: AP upright view of the chest FINDINGS: A left chest wall dual-lead pacemaker is unchanged. The cardiac silhouette is stable. Lung s are normally expanded. No consolidation, pleural effusion, or pneumothorax. No acute osseous abnorm ality. IMPRESSION: No acute cardiopulmonary abnormality. Electronically signed by: Marie Shaffer MD (08/02/2020 7:00 PM) [id number]
[2020-08-02 19:05] LABS: CREATINE KINASE 46 U/L (26-192)
[2020-08-02 19:16] LABS: INFLUENZA A PATIENT NEGATIVE (NEGATIVE); INFLUENZA B PATIENT NEGATIVE (NEGATIVE)
[2020-08-02 19:52] LABS: BILIRUBIN,URINE NEGATIVE (NEG); CLARITY,URINE CLEAR; COLOR,URINE YELLOW; NITRITE,URINE NEGATIVE (NEG); PH,URINE 6.5 (<5.0-8.0); PROTEIN,URINE NEGATIVE (NEG-TRACE); UROBILINOGEN,URINE 0.2 mg/dL (0.2 mg/dL)
--- NOTE | 2020-08-02 19:52 | PHYS DOC ---
Past Medical History Past Medical History: Asthma, CHF, COPD, GERD, Heart Disease, Hypertension (JULIA LAU APRN) Past Surgical History: Pacemaker Additional Past Surgical Histo: pacemaker (JULIA LAU APRN) Smoking Status: Never Smoker Alcohol Use: None Drug Use: None (JULIA LAU APRN) General Adult EDM: Chief Complaint: CHEST PAIN HPI: HPI: Patient is a 60 year old female with history of COPD, CHF, hypertension, high cholesterol, CAD, who presents to the ED today complaining of shortness of breath, cough, and intermittent generalized chest pain, symptoms for 3 days. Denies anything specifically exacerbating or relieving her chest pain or other symptoms. She states she was febrile yesterday. Denies any nasal congestion. Currently is denying any chest pain in the ED. (JULIA LAU APRN) Review of Systems: Review of Systems: Constitutional: Reports fever Eyes: Denies change in visual acuity. [] HENT: Denies nasal congestion or sore throat. [] Respiratory: Reports cough and shortness of breath. [] Cardiovascular: Reports chest pain GI: Denies abdominal pain, nausea, vomiting, bloody stools or diarrhea. [] : Denies dysuria. [] Musculoskeletal: Denies back pain or joint pain. [] Integument: Denies rash. [] Neurologic: Denies headache, focal weakness or sensory changes. [] Psychiatric: Denies depression or anxiety. [] (JULIA LAU APRN) Heart Score: HEART Score for Chest Pain: HEART Score for Chest Pain Response (Comments) Value History Slighlty/Non-Suspicious 0 ECG Normal 0 Age >45 - < 65 1 Risk Factors >3 Risk Factors or Hx CAD 2 Troponin < Normal Limit 0 Total 3 Risk Factors: Risk Factors: DM, Current or recent (<one month) smoker, HTN, HLP, family history of CAD, obesity. Risk Scores: Score 0 - 3: 2.5% MACE over next 6 weeks - Discharge Home Score 4 - 6: 20.3% MACE over next 6 weeks - Admit for Clinical Observation Score 7 - 10: 72.7% MACE over next 6 weeks - Early Invasive Strategies (JULIA LAU APRN) Current Medications: Current Medications Medications (Trade) Dose Ordered Sig/Paula Start Time Stop Time Status Last Admin Dose Admin Morphine Sulfate (Morphine Sulfate) 4 mg PRN Q15MIN PRN 08/02/20 18:15 08/03/20 18:14 Sodium Chloride 1,000 ml @ 1,000 mls/hr 1X ONCE 08/02/20 18:15 08/02/20 19:14 DC 08/02/20 19:35 1,000 MLS/HR (MUTUNGA,JULIA PRODUCTION RECORDER) Allergies: Allergies: Allergies Coded Allergies Type Severity Reaction Last Updated Verified piperacillin Allergy Unknown rash 05/26/18 No tazobactam Allergy Unknown rash 05/26/18 No (MUTUNGA,JULIA PRODUCTION RECORDER) Physical Exam: PE: Constitutional: Well developed, well nourished, no acute distress, non-toxic appearance. [] HENT: Normocephalic, atraumatic, bilateral external ears normal, oropharynx moist, no oral exudates, nose normal. [] Eyes: PERRLA, EOMI, conjunctiva normal, no discharge. [] Neck: Normal range of motion, no tenderness, supple, no stridor. [] Cardiovascular:Heart rate regular rhythm, no murmur [] Lungs & Thorax: Bilateral breath sounds clear to auscultation [] Abdomen: Bowel sounds normal, soft, no tenderness, no masses, no pulsatile masses. [] Skin: Warm, dry, no erythema, no rash. [] Back: No tenderness, no CVA tenderness. [] Extremities: No tenderness, no cyanosis, no clubbing, ROM intact, no edema. [] Neurologic: Alert and oriented X 3, normal motor function, normal sensory function, no focal deficits noted. [] Psychologic: Affect normal, judgement normal, mood normal. [] (MUTUNGA,JULIA PRODUCTION RECORDER) Current Patient Data: Labs: Laboratory Tests Test 08/02/20 18:17 White Blood Count 8.2 x10^3/uL (4.0-11.0) Red Blood Count 4.62 x10^6/uL (3.50-5.40) Hemoglobin 12.4 g/dL (12.0-15.5) Hematocrit 37.5 % (36.0-47.0) Mean Corpuscular Volume 81 fL (79-100) Mean Corpuscular Hemoglobin 27 pg (25-35) Mean Corpuscular Hemoglobin Concent 33 g/dL (31-37) Red Cell Distribution Width 14.6 % (11.5-14.5) H Platelet Count 181 x10^3/uL (140-400) Neutrophils (%) (Auto) 72 % (31-73) Lymphocytes (%) (Auto) 16 % (24-48) L Monocytes (%) (Auto) 7 % (0-9) Eosinophils (%) (Auto) 3 % (0-3) Basophils (%) (Auto) 1 % (0-3) Neutrophils # (Auto) 6.0 x10^3/uL (1.8-7.7) Lymphocytes # (Auto) 1.3 x10^3/uL (1.0-4.8) Monocytes # (Auto) 0.6 x10^3/uL (0.0-1.1) Eosinophils # (Auto) 0.3 x10^3/uL (0.0-0.7) Basophils # (Auto) 0.1 x10^3/uL (0.0-0.2) Prothrombin Time 13.3 SEC (11.7-14.0) Prothrombin Time INR 1.1 (0.8-1.1) Activated Partial Thromboplast Time 28 SEC (24-38) Sodium Level 140 mmol/L (136-145) Potassium Level 3.6 mmol/L (3.5-5.1) Chloride Level 104 mmol/L (98-107) Carbon Dioxide Level 27 mmol/L (21-32) Anion Gap 9 (6-14) Blood Urea Nitrogen 8 mg/dL (7-20) Creatinine 0.8 mg/dL (0.6-1.0) Estimated GFR (Cockcroft-Gault) 72.9 BUN/Creatinine Ratio 10 (6-20) Glucose Level 109 mg/dL (70-99) H Lactic Acid Level 1.2 mmol/L (0.4-2.0) Calcium Level 9.1 mg/dL (8.5-10.1) Magnesium Level 2.2 mg/dL (1.8-2.4) Total Bilirubin 0.5 mg/dL (0.2-1.0) Aspartate Amino Transferase (AST) 14 U/L (15-37) L Alanine Aminotransferase (ALT) 23 U/L (14-59) Alkaline Phosphatase 68 U/L (46-116) Creatine Kinase 46 U/L (26-192) Creatine Kinase MB (Mass) < 0.5 ng/mL (0.0-3.6) Creatine Kinase MB Relative Index % (0-4) Troponin I Quantitative < 0.017 ng/mL (0.000-0.055) QB-Wht-H-Type Natriuretic Peptide 201 pg/mL (0-124) H Total Protein 7.3 g/dL (6.4-8.2) Albumin 3.8 g/dL (3.4-5.0) Albumin/Globulin Ratio 1.1 (1.0-1.7) Thyroid Stimulating Hormone (TSH) 1.084 uIU/mL (0.358-3.74) Influenza Type A Antigen Negative (NEGATIVE) Influenza Type B Antigen Negative (NEGATIVE) Laboratory Tests 08/02/20 18:17 Laboratory Tests 08/02/20 18:17 Vital Signs: Vital Signs Date Time Temp Pulse Resp B/P (MAP) Pulse Ox O2 Delivery O2 Flow Rate FiO2 08/02/20 17:35 97.1 71 21 160/56 (90) 95 Room Air 97.1 (JULIA LAU APRN) EKG: EK interpreted by Dr. Cunningham sinus rhythm heart rate 69 no STEMI [] (JULIA LAU APRN) Radiology/Procedures: Radiology/Procedures: []PROCEDURE: PORTABLE CHEST 1V EXAM: XR CHEST 1V 08/02/2020 6:20 PM CLINICAL INDICATION: Fever, shortness of breath COMPARISON: Chest radiograph 08/18/2019 TECHNIQUE: AP upright view of the chest FINDINGS: A left chest wall dual-lead pacemaker is unchanged. The cardiac silhouette is stable. Lungs are normally expanded. No consolidation, pleural effusion, or pneumothorax. No acute osseous abnormality. IMPRESSION: No acute cardiopulmonary abnormality. Electronically signed by: Marie Shaffer MD (08/02/2020 7:00 PM) [id number] DICTATED and SIGNED BY: MARIE SHAFFER MD DATE: 08/02/20 [id number] (JULIA LAU APRN) Course & Med Decision Making: Course & Med Decision Making Pertinent Labs and Imaging studies reviewed. (See chart for details) This is a 60-year-old female patient presented to the ED today complaining of chest pain, shortness of breath, cough, fever, symptoms for 3 days. Patient is afebrile in the ED, O2 sats at 95% on room air. EKG is negative, troponin is negative, chest x-ray is negative. Labs are n egative for any acute findings. UA positive for UTI. Started on Cipro Spoke with who accepted patient for admission Routine consult placed for cardiology Covid PCR test obtained. PCP requested we also obtain a rapid test (JULIA LAU APRN) Dragon Disclaimer: Dragon Disclaimer: This electronic medical record was generated, in whole or in part, using a voice recognition dictation system. (JULIA LAU APRN) Departure Departure Impression: Primary Impression: Chest pain Qualified Codes: R07.9 - Chest pain, unspecified Additional Impressions: Urinary tract infection Qualified Codes: N39.0 - Urinary tract infection, site not specified Person under investigation for COVID-19 COPD exacerbation Disposition: ADMITTED INPT THIS HOSP Condition: STABLE Referrals: JEAN CLAUDE MUNOZ MD (PCP) Attending Signature Attending Signature I have reviewed the PA/DO ALL OPERATOR's note and plan of care. I was available for consultation as needed during the patient's visit in the emergency department. I agree with the clinical impression, plan, and disposition. (JOSETTE CUNNINGHAM DO) JULIA LAU APRN Aug 02, 2020 19:52 JOSETTE CUNNINGHAM DO Aug 02, 2020 22:33
[2020-08-02 19:59] LABS: AMPHETAMINE/METHAMPHETAMINE NEG (NEG); BACTERIA,URINE MODERATE /HPF (0-FEW); BARBITURATES NEG (NEG); BENZODIAZEPINES NEG (NEG); CANNABINOIDS NEG (NEG); COCAINE NEG (NEG); METHADONE NEG (NEG); OPIATES NEG (NEG); PHENCYCLIDINE NEG (NEG); RBC,URINE 0 /HPF (0-2)
[2020-08-02] MEDS ORDERED: SENNOSIDES 8.6 MG TABLET PO PRN (21:00)
[2020-08-02] MEDS ORDERED: NITROGLYCERIN SUBLINGUAL 0.4 MG BOTTLE OF 25. SL PRN ×2 (21:00→21:45)
[2020-08-02] MEDS ORDERED: DEXTROSE 50% 25 GM / 50ML DISP.SYRIN. IV PRN (21:00)
[2020-08-02] MEDS ORDERED: ONDANSETRON PF 4 MG/2 ML VIAL. IVP PRN (21:00)
[2020-08-02] MEDS ORDERED: ACETAMINOPHEN 325 MG TABLET. PO PRN ×2 (21:00→21:45)
[2020-08-02] MEDS ORDERED: DOCUSATE SODIUM 100 MG CAPSULE. PO PRN (21:00)
[2020-08-02] MEDS: ATORVASTATIN CALCIUM 40 MG TABLET. PO SCH (21:43)
[2020-08-02] MEDS: FAMOTIDINE 20 MG TABLET. PO SCH (21:43)
[2020-08-02] MEDS ORDERED: ONDANSETRON PF 4 MG/2 ML VIAL. IV PRN (21:45)
[2020-08-02] MEDS ORDERED: MORPHINE SULFATE 2 MG/ML VIAL. IV PRN (21:45)
[2020-08-02 22:00] VITALS: BP 186/79
[2020-08-02] MEDS ORDERED: DEXAMETHASONE SOD PHOS 20 MG/5 ML VIAL. IV ONE (22:00)
[2020-08-02] MEDS ORDERED: CIPROFLOXACIN 400MG PREMIX 200 ML IV ONE (22:00)
[2020-08-02 23:10] VITALS: BP 147/67
[2020-08-03 03:09] LABS: BASO # 0.1 x10^3/uL (0.0-0.2); BASO % 1 % (0-3); EOS # 0.2 x10^3/uL (0.0-0.7); EOS % 3 % (0-3); HEMATOCRIT 32.8 % (36.0-47.0); LYMPH # 1.3 x10^3/uL (1.0-4.8); LYMPH % 21 % (24-48); MEAN CORPUSCULAR HEMOGLOBIN 27 pg (25-35); MEAN CORPUSCULAR HGB CONC 34 g/dL (31-37); MEAN CORPUSCULAR VOLUME 81 fL (79-100); MONO # 0.5 x10^3/uL (0.0-1.1); MONO % 8 % (0-9); NEUT # 4.4 x10^3/uL (1.8-7.7); NEUT % 67 % (31-73); PLATELET COUNT 169 x10^3/uL (140-400); RED BLOOD COUNT 4.04 x10^6/uL (3.50-5.40); RED CELL DISTRIBUTION WIDTH 14.8 % (11.5-14.5); WHITE BLOOD COUNT 6.6 x10^3/uL (4.0-11.0)
[2020-08-03 03:15] VITALS: BP 165/74
--- NOTE | 2020-08-03 03:24 | EKG ---
[facility] [address] [place] [address] Test Date: 2020-08-02 Test Time: 17:43:18 Pat Name: MEMO PIERCE Department: Room: [facility] Gender: F Electrophysiology Nurse Practitioner: : 1960 Requested By: JULIA LAU Order Number: [id number] Reading MD: Malcolm Kinsey Measurements Intervals [place] Rate: 69 P: 45 [place]: 248 QRS: 9 QRSD: 72 T: 9 QT: 380 QTc: 409 Interpretive Statements SINUS RHYTHM PROLONGED [place] INTERVAL ABNORMAL ECG Electronically Signed On 08-06-2020 14:24:13 TUBE WINDER HAND by Malcolm Kinsey
[2020-08-03 03:34] LABS: ALBUMIN 3.1 g/dL (3.4-5.0); CALCIUM 8.2 mg/dL (8.5-10.1); CREATININE 0.8 mg/dL (0.6-1.0); GFR 72.9; POTASSIUM 3.6 mmol/L (3.5-5.1); TOTAL BILIRUBIN 0.4 mg/dL (0.2-1.0); TOTAL PROTEIN 6.3 g/dL (6.4-8.2)
[2020-08-03 05:16] LABS: MAGNESIUM 2.4 mg/dL (1.8-2.4)
[2020-08-03 07:00] VITALS: BP 163/74
[2020-08-03] MEDS ORDERED: FLU VACC QS 2020-21(6MOS+)/PF 0.5 ML SYRINGE. VAX IM ONE (09:00)
[2020-08-03] MEDS: ASPIRIN ENTERIC COATED 81 MG TABLET.DR. PO SCH (10:16)
[2020-08-03] MEDS: FAMOTIDINE 20 MG TABLET. PO SCH ×2 (10:16→20:46)
[2020-08-03] MEDS: MORPHINE SULFATE 2 MG/ML VIAL. IV PRN ×2 (10:24→13:17)
[2020-08-03] MEDS ORDERED: HYDROcodone/APAP 5/325MG 1 TAB TABLET PO PRN ×2 (10:30)
[2020-08-03] MEDS ORDERED: ALBUTEROL SULFATE 2.5 MG/3 ML NEBU. INH PRN (10:30)
[2020-08-03] MEDS ORDERED: traMADol 50 MG TABLET PO PRN (10:30)
[2020-08-03 11:00] VITALS: BP 138/62
[2020-08-03] MEDS ORDERED: FURO20TA3 PO (11:25)
--- NOTE | 2020-08-03 11:53 | PDOC ---
Provider Note Date of Service: DATE: 08/03/20 TIME: 11:52 Provider Note Pt seen .H&P dictated.#[id number]. Justifications for Admission Chest Pain Indications Is patient at high risk?: Yes Justification for admission: Patient is high risk based on hemodynamic instability, CHF, abnormal EKG/ECG/cardiac biomarkers/physical exam findings in context of chest pain persisting despite parenteral analgesics & optimal anti-anginal therapy. Other Justification JEAN CLAUDE MUNOZ MD Aug 03, 2020 11:53
[2020-08-03] MEDS ORDERED: NON FORMULARY ITEM (Albuterol Sulfate (Ventolin Hfa Inhaler) 2 PUFF) INH SCH (12:00)
[2020-08-03] MEDS: ALBUTEROL SULFATE 2.5 MG/3 ML NEBU. NEB SCH ×3 (12:00→20:00)
[2020-08-03] MEDS: NAPROXEN 500 MG TABLET PO SCH ×2 (12:00→20:46)
--- NOTE | 2020-08-03 12:10 | HP ---
ADMIT DATE: 08/02/2020 MEDICAL HISTORY AND PHYSICAL REASON FOR ADMISSION TO THE HOSPITAL: Fever, possible COVID. HISTORY OF PRESENT ILLNESS: The patient is a 60-year-old female who has been not feeling well, has fever, headaches, was brought to the hospital, 101 fever and chest x-ray was normal. Urine, some trace leukocytes and nitrites, but because of the fever symptoms, the patient was admitted for possible COVID infection. The patient was started on antibiotics and dexamethasone. PAST MEDICAL HISTORY: She has history of obesity, BMI 35. Asthma, COPD, GERD, hypertension. PAST SURGICAL HISTORY: Pacemaker. SOCIAL HISTORY: Denies smoking, alcohol, drug abuse. Lives at home with her . ALLERGIES: PIPERACILLIN AND TAZOBACTAM. MEDICATIONS AT HOME: The patient is on Flonase, albuterol inhaler, albuterol nebulizer at home, amlodipine 10 mg daily, aspirin 81 mg daily, citalopram 20 mg twice a day, B12 1000 mcg daily, Benadryl p.r.n., Advair 500/50 one puff twice a day, Lasix 20 mg daily, hydrocodone 5/325 daily, lisinopril 40 mg daily, Singulair 10 mg daily, naproxen twice a day, tramadol 50 mg q.6, trazodone 100 mg daily, pantoprazole 40 mg daily. FAMILY HISTORY: Positive for diabetes, heart disease. REVIEW OF SYMPTOMS: Complains of fever, does not feel good and congestion. PHYSICAL EXAMINATION: VITAL SIGNS: At the time of admission shows a T-max 100, she had 101 at home, blood pressure 156/83, pulse 68, 96 on room air. HEENT: Head is atraumatic. Pupils equal. Oral cavity, slight congestion. NECK: Supple. Thyroid not enlarged. JVD not elevated. CHEST: Symmetrical. CARDIOVASCULAR: S1, S2. LUNGS: Clear to auscultation. ABDOMEN: Soft, no mass palpable. EXTERNAL GENITALIA: No Juarez. RECTAL: Deferred. EXTREMITIES: No calf tenderness, no edema. Pulses 1+. NEUROLOGIC: Moving all extremities. No focal deficits noted. LABORATORY DATA: Shows a white count of 8, hemoglobin 12, platelets 181. INR 1.1. Electrolytes show sodium 140, potassium 3.6, chloride 104, bicarbonate 27, BUN 9, creatinine 0.8, glucose 109. Lactic acid 1.2. LFTs were normal. Magnesium normal. Urine shows 5-10 wbc's, large leukocyte esterase. Toxicology screen was negative. Influenza A and B was negative. Chest x-ray shows no acute abnormality. FINAL IMPRESSION: 1. Fever. 2. Rule out COVID. 3. Hypertension. 4. Hyperlipidemia. 5. History of asthma. PLAN: At this time, admit to the hospital, was started on broad-spectrum antibiotic, Levaquin, Rocephin and dexamethasone. Await COVID test and see how she improves in the next 24-48 hours. Also, urine culture is pending. JEAN CLAUDE MUNOZ MD DR: MAX/keshawn JOB#: [id number] / [id number]
[2020-08-03] MEDS: diphenhydrAMINE HCL 25 MG CAPSULE PO SCH ×2 (12:47→20:47)
[2020-08-03] MEDS: cefTRIAXone IV Push 1 GM VIAL. IVP SCH (12:47)
[2020-08-03] MEDS: FUROSEMIDE 20 MG TABLET PO SCH (12:47)
[2020-08-03] MEDS: CYANOCOBALAMIN (VITAMIN B-12) 1,000 MCG TABLET. PO SCH (12:47)
[2020-08-03] MEDS: LISINOPRIL 20 MG TABLET PO SCH (12:47)
[2020-08-03] MEDS: DEXAMETHASONE 4 MG TABLET PO SCH (12:47)
[2020-08-03] MEDS: PANTOPRAZOLE 40 MG TABLET.DR. PO SCH (12:48)
[2020-08-03] MEDS: MONTELUKAST SODIUM 10 MG TABLET. PO SCH (12:48)
[2020-08-03] MEDS: ASPIRIN CHEWABLE 81 MG TABLET. PO SCH (12:51)
[2020-08-03] MEDS ORDERED: NON FORMULARY ITEM (Cephalexin (Keflex) 1 CAP) PO SCH (14:00)
[2020-08-03] MEDS ORDERED: CYCLOBENZAPRINE 10 MG TABLET. PO SCH (14:00)
[2020-08-03 15:00] VITALS: BP 152/57
--- NOTE | 2020-08-03 16:58 | PDOC2 ---
CONSULT Date of Consult Date of Consult DATE: 08/03/20 TIME: 16:52 Reason for Consult Reason for Consult: Chest pain, pacemaker. Referring Physician Referring Physician: Dr. Moore Identification/Chief Complaint Chief Complaint Shortness of breath Source Source: Chart review, Patient History of Present Illness Reason for Visit: The patient is a 60-year-old female who was admitted through the emergency room last evening secondary to 3 days of gradually increasing shortness of breath. The patient reports feeling febrile the previous day. She also reports mild weakness. She reports some episodes of chest discomfort initially but this discomfort is increased with deep inspiration. Chest x-ray showed no acute cardiopulmonary process. EKG showed no ischemic changes. Troponin was normal. The patient also however has a urinary tract infection. Most recent echocardiogram from 05/24/2018 shows an ejection fraction of 55% with trace mitral regurgitation. The patient also has a permanent pacemaker although at this time she is unclear why it was placed. Past Medical History Cardiovascular: CAD, CHF, HTN, Other (Cardiac arrhythmia) Pulmonary: Asthma CENTRAL NERVOUS SYSTEM: Other GI: GERD Heme/Onc: No pertinent hx Hepatobiliary: No pertinent hx Psych: No pertinent hx Musculoskeletal: Osteoarthritis Rheumatologic: No pertinent hx Infectious disease: No pertinent hx Renal/: No pertinent hx Endocrine: No pertinent hx Past Surgical History Past Surgical History: Pacemaker, Tubal Ligation Family History Family History: Heart Disease Social History No ALCOHOL: none Drugs: None Lives: with Family Current Problem List Problem List Problems Medical Problems: (1) COPD exacerbation Status: Acute (2) Cough Status: Acute (3) Person under investigation for COVID-19 Status: Acute Current Medications Current Medications Current Medications Morphine Sulfate (Morphine Sulfate) 4 mg PRN Q15MIN PRN IV/SQ PAIN GREATER THAN 3/10; Start 08/02/20 at 18:15; Stop 08/03/20 at 18:14 Sodium Chloride 1,000 ml @ 1,000 mls/hr 1X ONCE IV Last administered on 08/02/20at 19:35; Start 08/02/20 at 18:15; Stop 08/02/20 at 19:14; Status DC Atorvastatin Calcium (Lipitor) 40 mg QHS PO Last administered on 08/02/20at 21:43; Start 08/02/20 at 21:00 Nitroglycerin (Nitrostat) 0.4 mg PRN Q5MIN PRN SL CHEST PAIN; Start 08/02/20 at 21:00 Sennosides (Senna) 17.2 mg PRN BID PRN PO CONSTIPATION 1ST CHOICE; Start 08/02/20 at 21:00 Docusate Sodium (Colace) 100 mg PRN DAILY PRN PO HARD STOOLS; Start 08/02/20 at 21:00 Ondansetron HCl (Zofran) 4 mg PRN Q6HRS PRN IVP NAUSEA/VOMITING 1ST CHOICE; Start 08/02/20 at 21:00 Aspirin (Ecotrin) 81 mg DAILYWBKFT PO Last administered on 08/03/20at 10:16; Start 08/03/20 at 08:00 Dextrose (Dextrose 50%-Water Syringe) 12.5 gm PRN Q15MIN PRN IV SEE COMMENTS; Start 08/02/20 at 21:00 Acetaminophen (Tylenol) 650 mg PRN Q4HRS PRN PO TEMP OVER 100.4F OR MILD PAIN; Start 08/02/20 at 21:00 Famotidine (Pepcid) 20 mg BID PO Last administered on 08/03/20at 10:16; Start 08/02/20 at 21:00 Morphine Sulfate (Morphine Sulfate) 1 mg PRN Q1HR PRN IV MODERATE PAIN 4-6 Last administered on 08/03/20at 13:17; Start 08/02/20 at 21:00 Morphine Sulfate (Morphine Sulfate) 2 mg PRN Q2HR PRN IV SEVERE PAIN 7-10; Start 08/02/20 at 04:00; Stop 08/03/20 at 03:59; Status DC Ondansetron HCl (Zofran) 4 mg PRN Q8HRS PRN IV NAUSEA/VOMITING; Start 08/02/20 at 21:45; Stop 08/03/20 at 21:44; Status UNV Morphine Sulfate (Morphine Sulfate) 2 mg PRN Q2HR PRN IV PAIN; Start 08/02/20 at 21:45; Stop 08/03/20 at 21:44; Status UNV Acetaminophen (Tylenol) 650 mg PRN Q4HRS PRN PO FEVER > 100.3'F; Start 08/02/20 at 21:45; Stop 08/03/20 at 21:44; Status UNV Nitroglycerin (Nitrostat) 0.4 mg PRN Q5MIN PRN SL CHEST PAIN; Start 08/02/20 at 21:45; Stop 08/03/20 at 21:44; Status UNV Dexamethasone Sodium Phosphate (Decadron) 10 mg 1X ONCE IV Last administered on 08/03/20at 00:12; Start 08/02/20 at 22:00; Stop 08/02/20 at 22:01; Status DC Ciprofloxacin/ Dextrose 200 ml @ 200 mls/hr 1X ONCE IV Last administered on 08/03/20at 00:12; Start 08/02/20 at 22:00; Stop 08/02/20 at 22:59; Status DC Influenza Virus Vaccine Quadrival (Fluzone Quad 1600-7346 Syringe) 0.5 ml ONCE ONCE VAX IM Last administered on 08/03/20at 10:40; Start 08/03/20 at 09:00; Stop 08/03/20 at 09:01; Status DC Albuterol Sulfate (Ventolin Neb Soln) 2 mg PRN Q6HRS PRN INH SHORTNESS OF BREATH; Start 08/03/20 at 10:30 Amlodipine Besylate (Norvasc) 10 mg DAILY PO Last administered on 08/03/20at 12:48; Start 08/03/20 at 12:00 Aspirin (Aspirin Chewable) 81 mg DAILY PO Last administered on 08/03/20at 12:51; Start 08/03/20 at 12:00 Citalopram Hydrobromide (CeleXA) 20 mg BID PO ; Start 08/03/20 at 21:00 Cyanocobalamin (Vitamin B-12) 1,000 mcg DAILY PO Last administered on 08/03/20at 12:47; Start 08/03/20 at 12:00 Cyclobenzaprine HCl (Flexeril) 10 mg TID PO ; Start 08/03/20 at 14:00; Stop 08/03/20 at 11:28; Status DC Diphenhydramine HCl (Benadryl) 25 mg TID PO Last administered on 08/03/20at 12:47; Start 08/03/20 at 14:00 Acetaminophen/ Hydrocodone Bitart (Lortab 5/325) 1 tab PRN Q6HRS PRN PO PAIN; Start 08/03/20 at 10:30 Acetaminophen/ Hydrocodone Bitart (Lortab 5/325) 1 tab PRN Q6HRS PRN PO PAIN; Start 08/03/20 at 10:30; Stop 08/03/20 at 10:47; Status DC Lisinopril (Prinivil) 40 mg DAILY PO Last administered on 08/03/20at 12:47; Start 08/03/20 at 12:00 Montelukast Sodium (Singulair) 10 mg DAILY PO Last administered on 08/03/20at 12: 48; Start 08/03/20 at 12:00 Naproxen (Naprosyn) 500 mg BID PO ; Start 08/03/20 at 12:00 Tramadol HCl (Ultram) 50 mg PRN Q6HRS PRN PO PAIN; Start 08/03/20 at 10:30 Trazodone HCl (Desyrel) 100 mg QHS PO ; Start 08/03/20 at 21:00 Non-Formulary Medication (Albuterol Sulfate (Ventolin Hfa Inhaler)) 2 puff Q4HRS INH ; Start 08/03/20 at 12:00; Stop 08/03/20 at 10:48; Status DC Non-Formulary Medication (Cephalexin (Keflex)) 1 cap TID PO ; Start 08/03/20 at 14:00; Stop 08/03/20 at 10:50; Status DC Non-Formulary Medication (Fluticasone/ Salmeterol (Advair 500-50 Diskus)) 1 puff BID IH ; Start 08/03/20 at 21:00; Stop 08/03/20 at 10:54; Status DC Non-Formulary Medication (Prednisone ) 1 tab DAILY PO ; Start 08/04/20 at 09:00; Status UNV Non-Formulary Medication (Prednisone ) 1 tab DAILY PO ; Start 08/04/20 at 09:00; Status UNV Pantoprazole Sodium (Protonix) 40 mg DAILYAC PO Last administered on 08/03/20at 12:48; Start 08/03/20 at 12:00 Ceftriaxone Sodium (Rocephin) 1 gm Q24H IVP Last administered on 08/03/20at 12:47; Start 08/03/20 at 12:00 Dexamethasone (Decadron) 4 mg DAILYWBKFT PO Last administered on 08/03/20at 12:47; Start 08/03/20 at 12:00 Albuterol Sulfate (Ventolin Neb Soln) 2.5 mg RTQID NEB ; Start 08/03/20 at 12:00 Budesonide (Pulmicort) 0.5 mg RTBID NEB ; Start 08/03/20 at 20:00 Furosemide (Lasix) 20 mg DAILY PO Last administered on 08/03/20at 12:47; Start 08/03/20 at 12:00 Lactobacillus Rhamnosus (Culturelle) 1 cap BID PO ; Start 08/03/20 at 21:00 Active Scripts Active Slovan 5-325 Tablet (Acetaminophen/Hydrocodone Bitart) 1 Each Tablet 1 Tab PO PRN Q6HRS PRN Tramadol Hcl 50 Mg Tablet 50 Mg PO Q6H PRN 3 Days Doxycycline Hyclate 100 Mg Tablet 1 Tab PO BID Proair Hfa Inhaler (Albuterol Sulfate) 8.5 Gm Hfa.aer.ad 1 Puff INH PRN Q6HRS PRN 1 Days Keflex (Cephalexin) 500 Mg Capsule 1 Cap PO TID [Pantoprazole] 40 MG Tablet.dr 40 Mg PO DAILYAC 30 Days Reported Furosemide 20 Mg Tablet 1 Tab PO DAILY Amlodipine Besylate 10 Mg Tablet 10 Mg PO DAILY Vitamin B-12 (Cyanocobalamin (Vitamin B-12)) 1,000 Mcg Tablet 1,000 Mcg PO Flonase Allergy Relief (Fluticasone Propionate) 9.9 Ml Lena.susp 9.9 Ml NS Ventolin Hfa Inhaler (Albuterol Sulfate) 18 Gm Hfa.aer.ad 2 Puff INH Q4HRS Advair 500-50 Diskus (Fluticasone/Salmeterol) 1 Each Disk.w.dev 1 Puff IH BID Benadryl (Diphenhydramine Hcl) 25 Mg Capsule 1 Cap PO TID Celexa (Citalopram Hydrobromide) 20 Mg Tablet 1 Tab PO BID Aspirin 81 Mg Tab.chew 1 Tab PO DAILY Trazodone Hcl 100 Mg Tablet 1 Tab PO QHS Singulair Tablet (Montelukast Sodium) 10 Mg Tablet 1 Tab PO DAILY Naproxen 500 Mg Tablet 1 Tab PO BID Lisinopril 40 Mg Tablet 1 Tab PO DAILY Allergies Allergies: Coded Allergies: piperacillin (Unverified Allergy, Intermediate, rash, 08/02/20) tazobactam (Unverified Allergy, Intermediate, rash, 08/02/20) ROS General: YES: Fatigue Respiratory: YES: Shortness of breath Physical Exam General: mild distress HEENT: Atraumatic Lungs: Other (Mildly decreased breath sounds) Heart: Regular rate Abdomen: Normal bowel sounds Vitals VITALS Vital Signs Date Time Temp Pulse Resp B/P (MAP) Pulse Ox O2 Delivery O2 Flow Rate FiO2 08/03/20 15:00 97.4 57 20 152/57 (88) 96 Room Air 97.4 Labs Labs Laboratory Tests Test 08/02/20 18:17 08/02/20 19:40 08/03/20 02:00 White Blood Count 8.2 x10^3/uL (4.0-11.0) 6.6 x10^3/uL (4.0-11.0) Red Blood Count 4.62 x10^6/uL (3.50-5.40) 4.04 x10^6/uL (3.50-5.40) Hemoglobin 12.4 g/dL (12.0-15.5) 11.0 g/dL (12.0-15.5) Hematocrit 37.5 % (36.0-47.0) 32.8 % (36.0-47.0) Mean Corpuscular Volume 81 fL (79-100) 81 fL (79-100) Mean Corpuscular Hemoglobin 27 pg (25-35) 27 pg (25-35) Mean Corpuscular Hemoglobin Concent 33 g/dL (31-37) 34 g/dL (31-37) Red Cell Distribution Width 14.6 % (11.5-14.5) 14.8 % (11.5-14.5) Platelet Count 181 x10^3/uL (140-400) 169 x10^3/uL (140-400) Neutrophils (%) (Auto) 72 % (31-73) 67 % (31-73) Lymphocytes (%) (Auto) 16 % (24-48) 21 % (24-48) Monocytes (%) (Auto) 7 % (0-9) 8 % (0-9) Eosinophils (%) (Auto) 3 % (0-3) 3 % (0-3) Basophils (%) (Auto) 1 % (0-3) 1 % (0-3) Neutrophils # (Auto) 6.0 x10^3/uL (1.8-7.7) 4.4 x10^3/uL (1.8-7.7) Lymphocytes # (Auto) 1.3 x10^3/uL (1.0-4.8) 1.3 x10^3/uL (1.0-4.8) Monocytes # (Auto) 0.6 x10^3/uL (0.0-1.1) 0.5 x10^3/uL (0.0-1.1) Eosinophils # (Auto) 0.3 x10^3/uL (0.0-0.7) 0.2 x10^3/uL (0.0-0.7) Basophils # (Auto) 0.1 x10^3/uL (0.0-0.2) 0.1 x10^3/uL (0.0-0.2) Prothrombin Time 13.3 SEC (11.7-14.0) Prothromb Time International Ratio 1.1 (0.8-1.1) Activated Partial Thromboplast Time 28 SEC (24-38) Sodium Level 140 mmol/L (136-145) 140 mmol/L (136-145) Potassium Level 3.6 mmol/L (3.5-5.1) 3.6 mmol/L (3.5-5.1) Chloride Level 104 mmol/L (98-107) 106 mmol/L (98-107) Carbon Dioxide Level 27 mmol/L (21-32) 26 mmol/L (21-32) Anion Gap 9 (6-14) 8 (6-14) Blood Urea Nitrogen 8 mg/dL (7-20) 8 mg/dL (7-20) Creatinine 0.8 mg/dL (0.6-1.0) 0.8 mg/dL (0.6-1.0) Estimated GFR (Cockcroft-Gault) 72.9 72.9 BUN/Creatinine Ratio 10 (6-20) 10 (6-20) Glucose Level 109 mg/dL (70-99) 103 mg/dL (70-99) Lactic Acid Level 1.2 mmol/L (0.4-2.0) Calcium Level 9.1 mg/dL (8.5-10.1) 8.2 mg/dL (8.5-10.1) Magnesium Level 2.2 mg/dL (1.8-2.4) 2.4 mg/dL (1.8-2.4) Total Bilirubin 0.5 mg/dL (0.2-1.0) 0.4 mg/dL (0.2-1.0) Aspartate Amino Transf (AST/SGOT) 14 U/L (15-37) 12 U/L (15-37) Alanine Aminotransferase (ALT/SGPT) 23 U/L (14-59) 18 U/L (14-59) Alkaline Phosphatase 68 U/L (46-116) 58 U/L (46-116) Creatine Kinase 46 U/L (26-192) Creatine Kinase MB (Mass) < 0.5 ng/mL (0.0-3.6) Creatine Kinase MB Relative Index % (0-4) Troponin I Quantitative < 0.017 ng/mL (0.000-0.055) < 0.017 ng/mL (0.000-0.055) MO-Egv-O-Type Natriuretic Peptide 201 pg/mL (0-124) Total Protein 7.3 g/dL (6.4-8.2) 6.3 g/dL (6.4-8.2) Albumin 3.8 g/dL (3.4-5.0) 3.1 g/dL (3.4-5.0) Albumin/Globulin Ratio 1.1 (1.0-1.7) 1.0 (1.0-1.7) Procalcitonin < 0.10 ng/mL (0.00-0.10) Thyroid Stimulating Hormone (TSH) 1.084 uIU/mL (0.358-3.74) Influenza Type A Antigen Negative (NEGATIVE) Influenza Type B Antigen Negative (NEGATIVE) Urine Collection Type Unknown Urine Color Yellow Urine Clarity Clear Urine pH 6.5 (<5.0-8.0) Urine Specific [place] <=1.005 (1.000-1.030) Urine Protein Negative mg/dL (NEG-TRACE) Urine Glucose (UA) Negative mg/dL (NEG) Urine Ketones (Stick) Negative mg/dL (NEG) Urine Blood Negative (NEG) Urine Nitrite Negative (NEG) Urine Bilirubin Negative (NEG) Urine Urobilinogen Dipstick 0.2 mg/dL (0.2 mg/dL) Urine Leukocyte Esterase Large (NEG) Urine RBC 0 /HPF (0-2) Urine WBC 5-10 /HPF (0-4) Urine Squamous Epithelial Cells Few /LPF Urine Bacteria Moderate /HPF (0-FEW) Urine Opiates Screen Neg (NEG) Urine Methadone Screen Neg (NEG) Urine Barbiturates Neg (NEG) Urine Phencyclidine Screen Neg (NEG) Urine Amphetamine/Methamphetamine Neg (NEG) Urine Benzodiazepines Screen Neg (NEG) Urine Cocaine Screen Neg (NEG) Urine Cannabinoids Screen Neg (NEG) Urine Ethyl Alcohol Neg (NEG) Phosphorus Level 3.0 mg/dL (2.6-4.7) Laboratory Tests Test 08/02/20 18:17 08/02/20 19:40 08/03/20 02:00 White Blood Count 8.2 x10^3/uL (4.0-11.0) 6.6 x10^3/uL (4.0-11.0) Red Blood Count 4.62 x10^6/uL (3.50-5.40) 4.04 x10^6/uL (3.50-5.40) Hemoglobin 12.4 g/dL (12.0-15.5) 11.0 g/dL (12.0-15.5) Hematocrit 37.5 % (36.0-47.0) 32.8 % (36.0-47.0) Mean Corpuscular Volume 81 fL (79-100) 81 fL (79-100) Mean Corpuscular Hemoglobin 27 pg (25-35) 27 pg (25-35) Mean Corpuscular Hemoglobin Concent 33 g/dL (31-37) 34 g/dL (31-37) Red Cell Distribution Width 14.6 % (11.5-14.5) 14.8 % (11.5-14.5) Platelet Count 181 x10^3/uL (140-400) 169 x10^3/uL (140-400) Neutrophils (%) (Auto) 72 % (31-73) 67 % (31-73) Lymphocytes (%) (Auto) 16 % (24-48) 21 % (24-48) Monocytes (%) (Auto) 7 % (0-9) 8 % (0-9) Eosinophils (%) (Auto) 3 % (0-3) 3 % (0-3) Basophils (%) (Auto) 1 % (0-3) 1 % (0-3) Neutrophils # (Auto) 6.0 x10^3/uL (1.8-7.7) 4.4 x10^3/uL (1.8-7.7) Lymphocytes # (Auto) 1.3 x10^3/uL (1.0-4.8) 1.3 x10^3/uL (1.0-4.8) Monocytes # (Auto) 0.6 x10^3/uL (0.0-1.1) 0.5 x10^3/uL (0.0-1.1) Eosinophils # (Auto) 0.3 x10^3/uL (0.0-0.7) 0.2 x10^3/uL (0.0-0.7) Basophils # (Auto) 0.1 x10^3/uL (0.0-0.2) 0.1 x10^3/uL (0.0-0.2) Prothrombin Time 13.3 SEC (11.7-14.0) Prothromb Time International Ratio 1.1 (0.8-1.1) Activated Partial Thromboplast Time 28 SEC (24-38) Sodium Level 140 mmol/L (136-145) 140 mmol/L (136-145) Potassium Level 3.6 mmol/L (3.5-5.1) 3.6 mmol/L (3.5-5.1) Chloride Level 104 mmol/L (98-107) 106 mmol/L (98-107) Carbon Dioxide Level 27 mmol/L (21-32) 26 mmol/L (21-32) Anion Gap 9 (6-14) 8 (6-14) Blood Urea Nitrogen 8 mg/dL (7-20) 8 mg/dL (7-20) Creatinine 0.8 mg/dL (0.6-1.0) 0.8 mg/dL (0.6-1.0) Estimated GFR (Cockcroft-Gault) 72.9 72.9 BUN/Creatinine Ratio 10 (6-20) 10 (6-20) Glucose Level 109 mg/dL (70-99) 103 mg/dL (70-99) Lactic Acid Level 1.2 mmol/L (0.4-2.0) Calcium Level 9.1 mg/dL (8.5-10.1) 8.2 mg/dL (8.5-10.1) Magnesium Level 2.2 mg/dL (1.8-2.4) 2.4 mg/dL (1.8-2.4) Total Bilirubin 0.5 mg/dL (0.2-1.0) 0.4 mg/dL (0.2-1.0) Aspartate Amino Transf (AST/SGOT) 14 U/L (15-37) 12 U/L (15-37) Alanine Aminotransferase (ALT/SGPT) 23 U/L (14-59) 18 U/L (14-59) Alkaline Phosphatase 68 U/L (46-116) 58 U/L (46-116) Creatine Kinase 46 U/L (26-192) Creatine Kinase MB (Mass) < 0.5 ng/mL (0.0-3.6) Creatine Kinase MB Relative Index % (0-4) Troponin I Quantitative < 0.017 ng/mL (0.000-0.055) < 0.017 ng/mL (0.000-0.055) AL-Cde-P-Type Natriuretic Peptide 201 pg/mL (0-124) Total Protein 7.3 g/dL (6.4-8.2) 6.3 g/dL (6.4-8.2) Albumin 3.8 g/dL (3.4-5.0) 3.1 g/dL (3.4-5.0) Albumin/Globulin Ratio 1.1 (1.0-1.7) 1.0 (1.0-1.7) Procalcitonin < 0.10 ng/mL (0.00-0.10) Thyroid Stimulating Hormone (TSH) 1.084 uIU/mL (0.358-3.74) Influenza Type A Antigen Negative (NEGATIVE) Influenza Type B Antigen Negative (NEGATIVE) Urine Collection Type Unknown Urine Color Yellow Urine Clarity Clear Urine pH 6.5 (<5.0-8.0) Urine Specific [place] <=1.005 (1.000-1.030) Urine Protein Negative mg/dL (NEG-TRACE) Urine Glucose (UA) Negative mg/dL (NEG) Urine Ketones (Stick) Negative mg/dL (NEG) Urine Blood Negative (NEG) Urine Nitrite Negative (NEG) Urine Bilirubin Negative (NEG) Urine Urobilinogen Dipstick 0.2 mg/dL (0.2 mg/dL) Urine Leukocyte Esterase Large (NEG) Urine RBC 0 /HPF (0-2) Urine WBC 5-10 /HPF (0-4) Urine Squamous Epithelial Cells Few /LPF Urine Bacteria Moderate /HPF (0-FEW) Urine Opiates Screen Neg (NEG) Urine Methadone Screen Neg (NEG) Urine Barbiturates Neg (NEG) Urine Phencyclidine Screen Neg (NEG) Urine Amphetamine/Methamphetamine Neg (NEG) Urine Benzodiazepines Screen Neg (NEG) Urine Cocaine Screen Neg (NEG) Urine Cannabinoids Screen Neg (NEG) Urine Ethyl Alcohol Neg (NEG) Phosphorus Level 3.0 mg/dL (2.6-4.7) Images Images Chest x-ray with no acute processes. Assessment/Plan Assessment/Plan 1. Increasing shortness of breath. Patient reports increasing shortness of breath over several days with a fever yesterday. Chest x-ray shows no acute processes. Patient is being treated with antibiotics for a urinary tract infection. She is being evaluated for possible Covid. Most recent echocardiogram from 05/24/2018 shows normal systolic function. 2. COPD. Continue on present medications. 3. History of possible heart failure. Echo as noted above. No infiltrates. Will check old records. 4. Permanent pacemaker. Will check history and interrogate the device as per Covid guidelines. 5. Possible history of coronary disease. Again we will attempt to find and check old records. Thank you for allowing us to participate in the care of your patient. MCKINLEY FULLER MD Aug 03, 2020 16:58
[2020-08-03 19:00] VITALS: BP 167/74
[2020-08-03] MEDS: BUDESONIDE 0.5 MG/2 ML NEBU. NEB SCH (20:00)
[2020-08-03] MEDS: LACTOBACILLUS RHAMNOSUS GG 1 CAPSULE. PO SCH (20:47)
[2020-08-03] MEDS: ATORVASTATIN CALCIUM 40 MG TABLET. PO SCH (20:47)
[2020-08-03] MEDS: traZODone 100 MG TABLET. PO SCH (20:47)
[2020-08-03] MEDS: CITALOPRAM 20 MG TABLET. PO SCH (20:57)
[2020-08-03] MEDS ORDERED: NON FORMULARY ITEM (Fluticasone/Salmeterol (Advair 500-50 Diskus) 1 PUFF) IH SCH (21:00)
[2020-08-03 23:00] VITALS: BP 142/67
[2020-08-04 03:00] VITALS: BP 145/66
[2020-08-04 07:00] VITALS: BP 166/74
[2020-08-04] MEDS ORDERED: NON FORMULARY ITEM (Prednisone 1 TAB) PO SCH ×2 (09:00)
[2020-08-04] MEDS: LISINOPRIL 20 MG TABLET PO SCH (09:22)
[2020-08-04] MEDS: ASPIRIN CHEWABLE 81 MG TABLET. PO SCH (09:22)
[2020-08-04] MEDS: ASPIRIN ENTERIC COATED 81 MG TABLET.DR. PO SCH (09:22)
[2020-08-04] MEDS: PANTOPRAZOLE 40 MG TABLET.DR. PO SCH (09:22)
[2020-08-04] MEDS: CITALOPRAM 20 MG TABLET. PO SCH ×2 (09:22→20:49)
[2020-08-04] MEDS: LACTOBACILLUS RHAMNOSUS GG 1 CAPSULE. PO SCH ×2 (09:23→20:49)
[2020-08-04] MEDS: MONTELUKAST SODIUM 10 MG TABLET. PO SCH (09:23)
[2020-08-04] MEDS: FAMOTIDINE 20 MG TABLET. PO SCH ×2 (09:23→20:49)
[2020-08-04] MEDS: FUROSEMIDE 20 MG TABLET PO SCH (09:23)
[2020-08-04] MEDS: NAPROXEN 500 MG TABLET PO SCH ×2 (09:23→20:49)
[2020-08-04] MEDS: CYANOCOBALAMIN (VITAMIN B-12) 1,000 MCG TABLET. PO SCH (09:23)
[2020-08-04] MEDS: DEXAMETHASONE 4 MG TABLET PO SCH ×3 (09:23→20:49)
[2020-08-04] MEDS: diphenhydrAMINE HCL 25 MG CAPSULE PO SCH ×3 (09:25→20:49)
[2020-08-04] MEDS: ALBUTEROL SULFATE 2.5 MG/3 ML NEBU. NEB SCH ×4 (10:09→20:00)
[2020-08-04] MEDS: BUDESONIDE 0.5 MG/2 ML NEBU. NEB SCH ×2 (10:09→21:07)
[2020-08-04 11:00] VITALS: BP 129/62
--- NOTE | 2020-08-04 11:22 | PDOC ---
PROGRESS NOTES Date of Service: DATE: 08/04/20 TIME: 11:20 Subjective Subjective bouts of cough Objective Objective Vital Signs Date Time Temp Pulse Resp B/P (MAP) Pulse Ox O2 Delivery O2 Flow Rate FiO2 08/04/20 10:09 94 Room Air 08/04/20 09:24 56 145/66 08/04/20 07:00 96.3 20 96.3 Intake and Output 08/04/20 07:00 Intake Total 600 ml Balance 600 ml Intake Oral 600 ml # Voids 1 Physical Exam Abdomen: Normal bowel sounds Heart: Regular rate General: mild distress HEENT: Atraumatic Lungs: Other (Mildly decreased breath sounds, wheezing) MUSCULOSKELETAL: Osteoarthritic changes both hands Neck: Supple Neuro: Normal speech Psych/Mental Status: Mental status NL Skin: No breakdown Diagnosis Problem List Problems Medical Problems: (1) COPD exacerbation Status: Acute (2) Cough Status: Acute (3) Person under investigation for COVID-19 Status: Acute Assessment Assessment Problems Medical Problems: (1) COPD exacerbation Status: Acute (2) Cough Status: Acute (3) Person under investigation for COVID-19 Status: Acute FINAL IMPRESSION: 1. Fever. 2. Rule out COVID. 3. Hypertension. 4. Hyperlipidemia. 5. History of asthma. PLAN: no more fevers covid -neg. cxr good labs good inc dexamethasone tid iv rocephin ?home tomorrow At this time, admit to the hospital, was started on broad-spectrum antibiotic, Levaquin, Rocephin and dexamethasone. Await COVID test and see how she improves in the next 24-48 hours. Also, urine culture is pending. Plan Plan of Care Problems Medical Problems: (1) COPD exacerbation Status: Acute (2) Cough Status: Acute (3) Person under investigation for COVID-19 Status: Acute Comment Review of Relevant I have reviewed the following items beverly (where applicable) has been applied. Labs Microbiology 08/03/20 Blood Culture - Preliminary, Resulted NO GROWTH AFTER 1 DAY 08/02/20 Urine Culture - Final, Complete Medications Current Medications Albuterol Sulfate (Ventolin Neb Soln) 2.5 mg RTQID NEB Last administered on 08/04/20at 10:09; Start 08/03/20 at 12:00 Amlodipine Besylate (Norvasc) 10 mg DAILY PO Last administered on 1/3/21at 09:24; Start 08/03/20 at 12:00 Aspirin (Aspirin Chewable) 81 mg DAILY PO Last administered on 08/04/20 09:22; Start 08/03/20 at 12:00 Budesonide (Pulmicort) 0.5 mg RTBID NEB Last administered on 08/04/20 10:09; Start 08/03/20 at 20:00 Ceftriaxone Sodium (Rocephin) 1 gm Q24H IVP Last administered on 08/03/20 12:47; Start 08/03/20 at 12:00 Citalopram Hydrobromide (CeleXA) 20 mg BID PO Last administered on 08/04/20 09:22; Start 08/03/20 at 21:00 Cyanocobalamin (Vitamin B-12) 1,000 mcg DAILY PO Last administered on 08/04/20 09:23; Start 08/03/20 at 12:00 Cyclobenzaprine HCl (Flexeril) 10 mg TID PO ; Start 08/03/20 at 14:00; Stop 08/03/20 at 11:28; Status DC Dexamethasone (Decadron) 4 mg DAILYWBKFT PO Last administered on 08/04/20 09:23; Start 08/03/20 at 12:00 Diphenhydramine HCl (Benadryl) 25 mg TID PO Last administered on 08/04/20 09:25; Start 08/03/20 at 14:00 Furosemide (Lasix) 20 mg DAILY PO Last administered on 08/04/20 09:23; Start 08/03/20 at 12:00 Lactobacillus Rhamnosus (Culturelle) 1 cap BID PO Last administered on 08/04/20 09:23; Start 08/03/20 at 21:00 Lisinopril (Prinivil) 40 mg DAILY PO Last administered on 08/04/20 09:22; Start 08/03/20 at 12:00 Montelukast Sodium (Singulair) 10 mg DAILY PO Last administered on 08/04/20 09:23; Start 08/03/20 at 12:00 Naproxen (Naprosyn) 500 mg BID PO Last administered on 08/04/20 09:23; Start 08/03/20 at 12:00 Non-Formulary Medication (Albuterol Sulfate (Ventolin Hfa Inhaler)) 2 puff Q4HRS INH ; Start 08/03/20 at 12:00; Stop 08/03/20 at 10:48; Status DC Non-Formulary Medication (Cephalexin (Keflex)) 1 cap TID PO ; Start 08/03/20 at 14:00; Stop 08/03/20 at 10:50; Status DC Non-Formulary Medication (Fluticasone/ Salmeterol (Advair 500-50 Diskus)) 1 puff BID IH ; Start 08/03/20 at 21:00; Stop 08/03/20 at 10:54; Status DC Non-Formulary Medication (Prednisone ) 1 tab DAILY PO ; Start 08/04/20 at 09:00; Status UNV Non-Formulary Medication (Prednisone ) 1 tab DAILY PO ; Start 08/04/20 at 09:00; Status UNV Pantoprazole Sodium (Protonix) 40 mg DAILYAC PO Last administered on 08/04/20at 09:22; Start 08/03/20 at 12:00 Trazodone HCl (Desyrel) 100 mg QHS PO Last administered on 08/03/20at 20:47; Start 08/03/20 at 21:00 Vitals/I & O Vital Sign - Last 24 Hours 08/03/20 08/03/20 08/03/20 08/03/20 12:47 12:48 13:17 13:47 Pulse 59 59 Resp 16 16 B/P (MAP) 138/62 138/62 O2 Delivery Room Air Room Air 08/03/20 08/03/20 08/03/20 08/04/20 15:00 19:00 23:00 03:00 Temp 97.4 98.1 97.4 97.7 97.4 98.1 97.4 97.7 Pulse 57 55 60 56 Resp 20 20 18 20 B/P (MAP) 152/57 (88) 167/74 (105) 142/67 (92) 145/66 (92) Pulse Ox 96 97 93 94 O2 Delivery Room Air Room Air Room Air Room Air 08/04/20 08/04/20 08/04/20 08/04/20 07:00 09:22 09:24 10:09 Temp 96.3 96.3 Pulse 56 56 56 Resp 20 B/P (MAP) 166/74 (104) 145/66 145/66 Pulse Ox 94 94 O2 Delivery Room Air Room Air Intake and Output 08/03/20 08/03/20 08/04/20 15:00 23:00 07:00 Intake Total 0 ml 600 ml Balance 0 ml 600 ml Justifications for Admission Chest Pain Indications Is patient at high risk?: Yes Justification for admission: Patient is high risk based on hemodynamic instability, CHF, abnormal EKG/ECG/cardiac biomarkers/physical exam findings in context of chest pain persisting despite parenteral analgesics & optimal anti-anginal therapy. Other Justification JEAN CLAUDE MUNOZ MD Aug 04, 2020 11:22
[2020-08-04] MEDS: IPRATRPIUM/ALBUTEROL 0.5/2.5MG 3 ML NEBU. NEB SCH ×3 (12:00→21:06)
[2020-08-04] MEDS: cefTRIAXone IV Push 1 GM VIAL. IVP SCH (12:38)
[2020-08-04 15:00] VITALS: BP 137/63
--- NOTE | 2020-08-04 15:54 | PDOC ---
PROGRESS NOTES Date of Service DATE: 08/04/20 TIME: 15:52 Subjective Subjective Patient seen and evaluated Objective Objective Vital Signs Date Time Temp Pulse Resp B/P (MAP) Pulse Ox O2 Delivery O2 Flow Rate FiO2 08/04/20 15:00 97.3 58 18 137/63 (87) 94 Room Air 97.3 Intake and Output 08/04/20 07:00 Intake Total 600 ml Balance 600 ml Intake Oral 600 ml # Voids 1 Physical Exam Abdomen: Normal bowel sounds Heart: Regular rate General: No acute distress Lungs: Other (Mildly decreased breath sounds) Assessment Assessment Problems Medical Problems: (1) COPD exacerbation Status: Acute (2) Cough Status: Acute (3) Person under investigation for COVID-19 Status: Acute 1. Increasing shortness of breath. Patient reports increasing shortness of breath over several days with a fever yesterday. Chest x-ray shows no acute processes. Patient is being treated with antibiotics for a urinary tract infection. She is being evaluated for possible Covid. Most recent echocardiogram from 05/24/2018 shows normal systolic function. She is feeling better today. We will continue present treatment. 2. COPD. Continue on present medications. 3. History of possible heart failure. Echo as noted above. No infiltrates. Will check old records. 4. Permanent pacemaker. Will check history and interrogate the device as per Covid guidelines. 5. Possible history of coronary disease. No chest pain. Continue present treatment. Comment Review of Relevant I have reviewed the following items beverly (where applicable) has been applied. Labs Laboratory Tests Test 08/02/20 18:17 08/02/20 19:40 08/03/20 02:00 White Blood Count 8.2 x10^3/uL (4.0-11.0) 6.6 x10^3/uL (4.0-11.0) Red Blood Count 4.62 x10^6/uL (3.50-5.40) 4.04 x10^6/uL (3.50-5.40) Hemoglobin 12.4 g/dL (12.0-15.5) 11.0 g/dL (12.0-15.5) Hematocrit 37.5 % (36.0-47.0) 32.8 % (36.0-47.0) Mean Corpuscular Volume 81 fL (79-100) 81 fL (79-100) Mean Corpuscular Hemoglobin 27 pg (25-35) 27 pg (25-35) Mean Corpuscular Hemoglobin Concent 33 g/dL (31-37) 34 g/dL (31-37) Red Cell Distribution Width 14.6 % (11.5-14.5) 14.8 % (11.5-14.5) Platelet Count 181 x10^3/uL (140-400) 169 x10^3/uL (140-400) Neutrophils (%) (Auto) 72 % (31-73) 67 % (31-73) Lymphocytes (%) (Auto) 16 % (24-48) 21 % (24-48) Monocytes (%) (Auto) 7 % (0-9) 8 % (0-9) Eosinophils (%) (Auto) 3 % (0-3) 3 % (0-3) Basophils (%) (Auto) 1 % (0-3) 1 % (0-3) Neutrophils # (Auto) 6.0 x10^3/uL (1.8-7.7) 4.4 x10^3/uL (1.8-7.7) Lymphocytes # (Auto) 1.3 x10^3/uL (1.0-4.8) 1.3 x10^3/uL (1.0-4.8) Monocytes # (Auto) 0.6 x10^3/uL (0.0-1.1) 0.5 x10^3/uL (0.0-1.1) Eosinophils # (Auto) 0.3 x10^3/uL (0.0-0.7) 0.2 x10^3/uL (0.0-0.7) Basophils # (Auto) 0.1 x10^3/uL (0.0-0.2) 0.1 x10^3/uL (0.0-0.2) Prothrombin Time 13.3 SEC (11.7-14.0) Prothromb Time International Ratio 1.1 (0.8-1.1) Activated Partial Thromboplast Time 28 SEC (24-38) Sodium Level 140 mmol/L (136-145) 140 mmol/L (136-145) Potassium Level 3.6 mmol/L (3.5-5.1) 3.6 mmol/L (3.5-5.1) Chloride Level 104 mmol/L (98-107) 106 mmol/L (98-107) Carbon Dioxide Level 27 mmol/L (21-32) 26 mmol/L (21-32) Anion Gap 9 (6-14) 8 (6-14) Blood Urea Nitrogen 8 mg/dL (7-20) 8 mg/dL (7-20) Creatinine 0.8 mg/dL (0.6-1.0) 0.8 mg/dL (0.6-1.0) Estimated GFR (Cockcroft-Gault) 72.9 72.9 BUN/Creatinine Ratio 10 (6-20) 10 (6-20) Glucose Level 109 mg/dL (70-99) 103 mg/dL (70-99) Lactic Acid Level 1.2 mmol/L (0.4-2.0) Calcium Level 9.1 mg/dL (8.5-10.1) 8.2 mg/dL (8.5-10.1) Magnesium Level 2.2 mg/dL (1.8-2.4) 2.4 mg/dL (1.8-2.4) Total Bilirubin 0.5 mg/dL (0.2-1.0) 0.4 mg/dL (0.2-1.0) Aspartate Amino Transf (AST/SGOT) 14 U/L (15-37) 12 U/L (15-37) Alanine Aminotransferase (ALT/SGPT) 23 U/L (14-59) 18 U/L (14-59) Alkaline Phosphatase 68 U/L (46-116) 58 U/L (46-116) Creatine Kinase 46 U/L (26-192) Creatine Kinase MB (Mass) < 0.5 ng/mL (0.0-3.6) Creatine Kinase MB Relative Index % (0-4) Troponin I Quantitative < 0.017 ng/mL (0.000-0.055) < 0.017 ng/mL (0.000-0.055) NA-Klt-L-Type Natriuretic Peptide 201 pg/mL (0-124) Total Protein 7.3 g/dL (6.4-8.2) 6.3 g/dL (6.4-8.2) Albumin 3.8 g/dL (3.4-5.0) 3.1 g/dL (3.4-5.0) Albumin/Globulin Ratio 1.1 (1.0-1.7) 1.0 (1.0-1.7) Procalcitonin < 0.10 ng/mL (0.00-0.10) Thyroid Stimulating Hormone (TSH) 1.084 uIU/mL (0.358-3.74) Coronavirus (PCR) Not detected (Not Detected) Influenza Type A Antigen Negative (NEGATIVE) Influenza Type B Antigen Negative (NEGATIVE) Urine Collection Type Unknown Urine Color Yellow Urine Clarity Clear Urine pH 6.5 (<5.0-8.0) Urine Specific [place] <=1.005 (1.000-1.030) Urine Protein Negative mg/dL (NEG-TRACE) Urine Glucose (UA) Negative mg/dL (NEG) Urine Ketones (Stick) Negative mg/dL (NEG) Urine Blood Negative (NEG) Urine Nitrite Negative (NEG) Urine Bilirubin Negative (NEG) Urine Urobilinogen Dipstick 0.2 mg/dL (0.2 mg/dL) Urine Leukocyte Esterase Large (NEG) Urine RBC 0 /HPF (0-2) Urine WBC 5-10 /HPF (0-4) Urine Squamous Epithelial Cells Few /LPF Urine Bacteria Moderate /HPF (0-FEW) Urine Opiates Screen Neg (NEG) Urine Methadone Screen Neg (NEG) Urine Barbiturates Neg (NEG) Urine Phencyclidine Screen Neg (NEG) Urine Amphetamine/Methamphetamine Neg (NEG) Urine Benzodiazepines Screen Neg (NEG) Urine Cocaine Screen Neg (NEG) Urine Cannabinoids Screen Neg (NEG) Urine Ethyl Alcohol Neg (NEG) Phosphorus Level 3.0 mg/dL (2.6-4.7) Microbiology 08/03/20 Blood Culture - Preliminary, Resulted NO GROWTH AFTER 1 DAY 08/02/20 Urine Culture - Final, Complete Medications Current Medications Morphine Sulfate (Morphine Sulfate) 4 mg PRN Q15MIN PRN IV/SQ PAIN GREATER THAN 3/10; Start 08/02/20 at 18:15; Stop 08/03/20 at 18:14; Status DC Sodium Chloride 1,000 ml @ 1,000 mls/hr 1X ONCE IV Last administered on 08/02/20at 19:35; Start 08/02/20 at 18:15; Stop 08/02/20 at 19:14; Status DC Atorvastatin Calcium (Lipitor) 40 mg QHS PO Last administered on 08/03/20at 20:47; Start 08/02/20 at 21:00 Nitroglycerin (Nitrostat) 0.4 mg PRN Q5MIN PRN SL CHEST PAIN; Start 08/02/20 at 21:00 Sennosides (Senna) 17.2 mg PRN BID PRN PO CONSTIPATION 1ST CHOICE; Start 08/02/20 at 21:00 Docusate Sodium (Colace) 100 mg PRN DAILY PRN PO HARD STOOLS; Start 08/02/20 at 21:00 Ondansetron HCl (Zofran) 4 mg PRN Q6HRS PRN IVP NAUSEA/VOMITING 1ST CHOICE; Start 08/02/20 at 21:00 Aspirin (Ecotrin) 81 mg DAILYWBKFT PO Last administered on 08/04/20at 09:22; Start 08/03/20 at 08:00 Dextrose (Dextrose 50%-Water Syringe) 12.5 gm PRN Q15MIN PRN IV SEE COMMENTS; Start 08/02/20 at 21:00 Acetaminophen (Tylenol) 650 mg PRN Q4HRS PRN PO TEMP OVER 100.4F OR MILD PAIN Last administered on 08/04/20at 03:20; Start 08/02/20 at 21:00 Famotidine (Pepcid) 20 mg BID PO Last administered on 08/04/20at 09:23; Start 08/02/20 at 21:00 Morphine Sulfate (Morphine Sulfate) 1 mg PRN Q1HR PRN IV MODERATE PAIN 4-6 Last administered on 08/03/20at 13:17; Start 08/02/20 at 21:00 Morphine Sulfate (Morphine Sulfate) 2 mg PRN Q2HR PRN IV SEVERE PAIN 7-10; Start 08/02/20 at 04:00; Stop 08/03/20 at 03:59; Status DC Ondansetron HCl (Zofran) 4 mg PRN Q8HRS PRN IV NAUSEA/VOMITING; Start 08/02/20 at 21:45; Stop 08/03/20 at 21:44; Status UNV Morphine Sulfate (Morphine Sulfate) 2 mg PRN Q2HR PRN IV PAIN; Start 08/02/20 at 21:45; Stop 08/03/20 at 21:44; Status UNV Acetaminophen (Tylenol) 650 mg PRN Q4HRS PRN PO FEVER > 100.3'F; Start 08/02/20 at 21:45; Stop 08/03/20 at 21:44; Status UNV Nitroglycerin (Nitrostat) 0.4 mg PRN Q5MIN PRN SL CHEST PAIN; Start 08/02/20 at 21:45; Stop 08/03/20 at 21:44; Status UNV Dexamethasone Sodium Phosphate (Decadron) 10 mg 1X ONCE IV Last administered on 08/03/20at 00:12; Start 08/02/20 at 22:00; Stop 08/02/20 at 22:01; Status DC Ciprofloxacin/ Dextrose 200 ml @ 200 mls/hr 1X ONCE IV Last administered on 08/03/20at 00:12; Start 08/02/20 at 22:00; Stop 08/02/20 at 22:59; Status DC Influenza Virus Vaccine Quadrival (Fluzone Quad [id number] Syringe) 0.5 ml ONCE ONCE VAX IM Last administered on 08/03/20at 10:40; Start 08/03/20 at 09:00; Stop 08/03/20 at 09:01; Status DC Albuterol Sulfate (Ventolin Neb Soln) 2 mg PRN Q6HRS PRN INH SHORTNESS OF BREATH; Start 08/03/20 at 10:30 Amlodipine Besylate (Norvasc) 10 mg DAILY PO Last administered on 08/04/20at 09:24; Start 08/03/20 at 12:00 Aspirin (Aspirin Chewable) 81 mg DAILY PO Last administered on 08/04/20at 09:22; Start 08/03/20 at 12:00 Citalopram Hydrobromide (CeleXA) 20 mg BID PO Last administered on 08/04/20at 09:22; Start 08/03/20 at 21:00 Cyanocobalamin (Vitamin B-12) 1,000 mcg DAILY PO Last administered on 08/04/20at 09:23; Start 08/03/20 at 12:00 Cyclobenzaprine HCl (Flexeril) 10 mg TID PO ; Start 08/03/20 at 14:00; Stop 08/03/20 at 11:28; Status DC Diphenhydramine HCl (Benadryl) 25 mg TID PO Last administered on 08/04/20at 14:38; Start 08/03/20 at 14:00 Acetaminophen/ Hydrocodone Bitart (Lortab 5/325) 1 tab PRN Q6HRS PRN PO SEVERE PAIN; Start 08/03/20 at 10:30 Acetaminophen/ Hydrocodone Bitart (Lortab 5/325) 1 tab PRN Q6HRS PRN PO PAIN; Start 08/03/20 at 10:30; Stop 08/03/20 at 10:47; Status DC Lisinopril (Prinivil) 40 mg DAILY PO Last administered on 08/04/20at 09:22; Start 08/03/20 at 12:00 Montelukast Sodium (Singulair) 10 mg DAILY PO Last administered on 08/04/20at 09:23; Start 08/03/20 at 12:00 Naproxen (Naprosyn) 500 mg BID PO Last administered on 08/04/20at 09:23; Start 08/03/20 at 12:00 Tramadol HCl (Ultram) 50 mg PRN Q6HRS PRN PO MODERATE PAIN; Start 08/03/20 at 10:30 Trazodone HCl (Desyrel) 100 mg QHS PO Last administered on 08/03/20at 20:47; Start 08/03/20 at 21:00 Non-Formulary Medication (Albuterol Sulfate (Ventolin Hfa Inhaler)) 2 puff Q4HRS INH ; Start 08/03/20 at 12:00; Stop 08/03/20 at 10:48; Status DC Non-Formulary Medication (Cephalexin (Keflex)) 1 cap TID PO ; Start 08/03/20 at 14:00; Stop 08/03/20 at 10:50; Status DC Non-Formulary Medication (Fluticasone/ Salmeterol (Advair 500-50 Diskus)) 1 puff BID IH ; Start 08/03/20 at 21:00; Stop 08/03/20 at 10:54; Status DC Non-Formulary Medication (Prednisone ) 1 tab DAILY PO ; Start 08/04/20 at 09:00; Status UNV Non-Formulary Medication (Prednisone ) 1 tab DAILY PO ; Start 08/04/20 at 09:00; Status UNV Pantoprazole Sodium (Protonix) 40 mg DAILYAC PO Last administered on 08/04/20 09:22; Start 08/03/20 at 12:00 Ceftriaxone Sodium (Rocephin) 1 gm Q24H IVP Last administered on 08/04/20 12:38; Start 08/03/20 at 12:00 Dexamethasone (Decadron) 4 mg DAILYWBKFT PO Last administered on 08/04/20 09:23; Start 08/03/20 at 12:00; Stop 08/04/20 at 11:20; Status DC Albuterol Sulfate (Ventolin Neb Soln) 2.5 mg RTQID NEB Last administered on 08/04/20 10:09; Start 08/03/20 at 12:00 Budesonide (Pulmicort) 0.5 mg RTBID NEB Last administered on 08/04/20 10:09; Start 08/03/20 at 20:00 Furosemide (Lasix) 20 mg DAILY PO Last administered on 08/04/20at 09:23; Start 08/03/20 at 12:00 Lactobacillus Rhamnosus (Culturelle) 1 cap BID PO Last administered on 08/04/20 09:23; Start 08/03/20 at 21:00 Dexamethasone (Decadron) 4 mg TID PO Last administered on 08/04/20at 14:38; Start 08/04/20 at 14:00 Albuterol/ Ipratropium (Duoneb) 3 ml RTQID NEB ; Start 08/04/20 at 12:00 Guaifenesin (Mucinex) 600 mg BID PO Last administered on 08/04/20at 12:38; Start 08/04/20 at 11:30 Active Scripts Active [place] 5-325 Tablet (Acetaminophen/Hydrocodone Bitart) 1 Each Tablet 1 Tab PO PRN Q6HRS PRN Tramadol Hcl 50 Mg Tablet 50 Mg PO Q6H PRN 3 Days Doxycycline Hyclate 100 Mg Tablet 1 Tab PO BID Proair Hfa Inhaler (Albuterol Sulfate) 8.5 Gm Hfa.aer.ad 1 Puff INH PRN Q6HRS PRN 1 Days Keflex (Cephalexin) 500 Mg Capsule 1 Cap PO TID [Pantoprazole] 40 MG Tablet.dr 40 Mg PO DAILYAC 30 Days Reported Furosemide 20 Mg Tablet 1 Tab PO DAILY Amlodipine Besylate 10 Mg Tablet 10 Mg PO DAILY Vitamin B-12 (Cyanocobalamin (Vitamin B-12)) 1,000 Mcg Tablet 1,000 Mcg PO Flonase Allergy Relief (Fluticasone Propionate) 9.9 Ml [place].susp 9.9 Ml NS Ventolin Hfa Inhaler (Albuterol Sulfate) 18 Gm Hfa.aer.ad 2 Puff INH Q4HRS Advair 500-50 Diskus (Fluticasone/Salmeterol) 1 Each Disk.w.dev 1 Puff IH BID Benadryl (Diphenhydramine Hcl) 25 Mg Capsule 1 Cap PO TID Celexa (Citalopram Hydrobromide) 20 Mg Tablet 1 Tab PO BID Aspirin 81 Mg Tab.chew 1 Tab PO DAILY Trazodone Hcl 100 Mg Tablet 1 Tab PO QHS Singulair Tablet (Montelukast Sodium) 10 Mg Tablet 1 Tab PO DAILY Naproxen 500 Mg Tablet 1 Tab PO BID Lisinopril 40 Mg Tablet 1 Tab PO DAILY Vitals/I & O Vital Sign - Last 24 Hours 08/03/20 08/03/20 08/04/20 08/04/20 19:00 23:00 03:00 07:00 Temp 98.1 97.4 97.7 96.3 98.1 97.4 97.7 96.3 Pulse 55 60 56 56 Resp 20 18 20 20 B/P (MAP) 167/74 (105) 142/67 (92) 145/66 (92) 166/74 (104) Pulse Ox 97 93 94 94 O2 Delivery Room Air Room Air Room Air Room Air 08/04/20 08/04/20 08/04/20 08/04/20 08:00 09:22 09:24 10:09 Pulse 56 56 B/P (MAP) 145/66 145/66 Pulse Ox 94 O2 Delivery Room Air Room Air 08/04/20 08/04/20 11:00 15:00 Temp 94.5 97.3 94.5 97.3 Pulse 63 58 Resp 18 18 B/P (MAP) 129/62 (84) 137/63 (87) Pulse Ox 94 94 O2 Delivery Room Air Room Air Intake and Output 08/03/20 08/03/20 08/04/20 15:00 23:00 07:00 Intake Total 0 ml 600 ml Balance 0 ml 600 ml Justifications for Admission Chest Pain Indications Is patient at high risk?: Yes Justification for admission: Patient is high risk based on hemodynamic instability, CHF, abnormal EKG/ECG/cardiac biomarkers/physical exam findings in context of chest pain persisting despite parenteral analgesics & optimal anti-anginal therapy. Other Justification MCKINLEY FULLER MD Aug 04, 2020 15:54
[2020-08-04 19:00] VITALS: BP 127/60
[2020-08-04] MEDS ORDERED: DEXA4TAB63 PO (19:51)
[2020-08-04] MEDS ORDERED: DOXY100C2 PO (19:53)
[2020-08-04] MEDS: traZODone 100 MG TABLET. PO SCH (20:48)
[2020-08-04] MEDS: ATORVASTATIN CALCIUM 40 MG TABLET. PO SCH (20:49)
[2020-08-04 23:00] VITALS: BP 115/56
[2020-08-05 03:00] VITALS: BP 150/71
[2020-08-05] MEDS: IPRATRPIUM/ALBUTEROL 0.5/2.5MG 3 ML NEBU. NEB SCH ×4 (07:11→20:00)
[2020-08-05] MEDS: BUDESONIDE 0.5 MG/2 ML NEBU. NEB SCH ×2 (07:11→20:00)
[2020-08-05] MEDS: ALBUTEROL SULFATE 2.5 MG/3 ML NEBU. NEB SCH ×3 (07:24→20:00)
[2020-08-05 07:49] VITALS: BP 150/67
[2020-08-05] MEDS: FAMOTIDINE 20 MG TABLET. PO SCH ×2 (08:18→22:45)
[2020-08-05] MEDS: LISINOPRIL 20 MG TABLET PO SCH (08:19)
[2020-08-05] MEDS: ASPIRIN CHEWABLE 81 MG TABLET. PO SCH (08:24)
[2020-08-05] MEDS: FUROSEMIDE 20 MG TABLET PO SCH (08:25)
[2020-08-05] MEDS: CITALOPRAM 20 MG TABLET. PO SCH ×2 (08:26→22:45)
[2020-08-05] MEDS: MONTELUKAST SODIUM 10 MG TABLET. PO SCH (08:26)
[2020-08-05] MEDS: CYANOCOBALAMIN (VITAMIN B-12) 1,000 MCG TABLET. PO SCH (08:26)
[2020-08-05] MEDS: PANTOPRAZOLE 40 MG TABLET.DR. PO SCH (08:26)
[2020-08-05] MEDS: LACTOBACILLUS RHAMNOSUS GG 1 CAPSULE. PO SCH ×2 (08:26→22:46)
[2020-08-05] MEDS: NAPROXEN 500 MG TABLET PO SCH ×2 (08:26→22:45)
[2020-08-05] MEDS: diphenhydrAMINE HCL 25 MG CAPSULE PO SCH ×3 (08:26→22:46)
[2020-08-05] MEDS: DEXAMETHASONE 4 MG TABLET PO SCH ×3 (08:27→22:47)
--- NOTE | 2020-08-05 09:01 | PDOC ---
PROGRESS NOTES Date of Service: DATE: 08/05/20 TIME: 09:00 Subjective Subjective still wheezing Objective Objective Vital Signs Date Time Temp Pulse Resp B/P (MAP) Pulse Ox O2 Delivery O2 Flow Rate FiO2 08/05/20 08:26 55 150/67 08/05/20 08:00 Room Air 08/05/20 07:49 97.3 20 93 97.3 Intake and Output 08/05/20 07:00 Intake Total 950 ml Balance 950 ml Intake Oral 950 ml # Voids 2 # Bowel Movements 1 Physical Exam Abdomen: Normal bowel sounds Heart: Regular rate General: No acute distress HEENT: Atraumatic Lungs: Other (Mildly decreased breath sounds) MUSCULOSKELETAL: Osteoarthritic changes both hands Neck: Supple Neuro: Normal speech Psych/Mental Status: Mental status NL Skin: No breakdown Diagnosis Problem List Problems Medical Problems: (1) COPD exacerbation Status: Acute (2) Cough Status: Acute (3) Person under investigation for COVID-19 Status: Acute Assessment Assessment Problems Medical Problems: (1) COPD exacerbation Status: Acute (2) Cough Status: Acute (3) Person under investigation for COVID-19 Status: Acute FINAL IMPRESSION: 1. Fever. 2. Rule out COVID. 3. Hypertension. 4. Hyperlipidemia. 5. History of asthma. PLAN: cxr today no more fevers covid -neg. cxr good labs good inc dexamethasone tid iv rocephin ?home tomorrow needs nebulizer machine for home use Plan Plan of Care Problems Medical Problems: (1) COPD exacerbation Status: Acute (2) Cough Status: Acute (3) Person under investigation for COVID-19 Status: Acute Comment Review of Relevant I have reviewed the following items beverly (where applicable) has been applied. Labs Microbiology 08/03/20 Blood Culture - Preliminary, Resulted NO GROWTH AFTER 2 DAYS 08/02/20 Urine Culture - Final, Complete Medications Current Medications Albuterol/ Ipratropium (Duoneb) 3 ml RTQID NEB Last administered on 08/05/20at 07:11; Start 08/04/20 at 12:00 Dexamethasone (Decadron) 4 mg TID PO Last administered on 08/05/20at 08:27; Start 08/04/20 at 14:00 Guaifenesin (Mucinex) 600 mg BID PO Last administered on 08/05/20at 08:24; Start 08/04/20 at 11:30 Vitals/I & O Vital Sign - Last 24 Hours 08/04/20 08/04/20 08/04/20 08/04/20 09:22 09:24 10:09 11:00 Temp 94.5 94.5 Pulse 56 56 63 Resp 18 B/P (MAP) 145/66 145/66 129/62 (84) Pulse Ox 94 94 O2 Delivery Room Air Room Air 08/04/20 08/04/20 08/04/20 08/04/20 15:00 19:00 21:10 23:00 Temp 97.3 98.1 96.7 97.3 98.1 96.7 Pulse 58 60 56 Resp 18 18 18 B/P (MAP) 137/63 (87) 127/60 (82) 115/56 (75) Pulse Ox 94 95 94 95 O2 Delivery Room Air Room Air Room Air Room Air 08/05/20 08/05/20 08/05/20 08/05/20 03:00 07:13 07:49 08:00 Temp 96.8 97.3 96.8 97.3 Pulse 60 55 Resp 18 20 B/P (MAP) 150/71 (97) 150/67 (94) Pulse Ox 95 93 93 O2 Delivery Room Air Room Air Room Air Room Air 08/05/20 08/05/20 08:19 08:26 Pulse 55 55 B/P (MAP) 150/67 150/67 Intake and Output 08/04/20 08/04/20 08/05/20 15:00 23:00 07:00 Intake Total 650 ml 300 ml Balance 650 ml 300 ml Justifications for Admission Chest Pain Indications Is patient at high risk?: Yes Justification for admission: Patient is high risk based on hemodynamic instability, CHF, abnormal EKG/ECG/cardiac biomarkers/physical exam findings in context of chest pain persisting despite parenteral analgesics & optimal anti-anginal therapy. Other Justification JEAN CLAUDE MUNOZ MD Aug 05, 2020 09:01
--- NOTE | 2020-08-05 11:08 | RAD ---
EXAM: Chest, 2 views. HISTORY: Bronchitis. COMPARISON: 08/02/2020 FINDINGS: 2 views of chest are obtained. There are chronic appearing diffuse increased interstitial m arkings. There is suspected basilar atelectasis or scarring. There is a stable cardiac silhouette and cardiac pacemaker. There is no pleural effusion or pneumothorax. There are calcified granulomas. IMPRESSION: Stable chronic appearing diffuse interstitial changes with basilar atelectasis or scarrin g. Electronically signed by: Meaghan Guerra MD (08/05/2020 11:05 AM) [id number]
[2020-08-05] MEDS: cefTRIAXone IV Push 1 GM VIAL. IVP SCH (11:35)
[2020-08-05 11:59] VITALS: BP 140/64
--- NOTE | 2020-08-05 15:25 | NUR ---
SW following for discharge planning. Spoke with RN and reviewed chart. Pt COVID negative, room air. SW consulted to assist pt in getting a nebulizer. SW met with pt. Pt stated no preference in provider for DME. SW phoned and faxed orders and clinicals to Nely with [employer]. Patient choice of vendor form completed. Nebulizer provided to patient. Patient signed manual ticket for [employer]. Pt to discharge home tomorrow, 08/06 self-care. SW following.
[2020-08-05 15:40] VITALS: BP 125/60
[2020-08-05 19:45] VITALS: BP 119/56
[2020-08-05] MEDS: ATORVASTATIN CALCIUM 40 MG TABLET. PO SCH (22:45)
[2020-08-05] MEDS: traZODone 100 MG TABLET. PO SCH (22:45)
[2020-08-05 23:49] VITALS: BP 150/66
[2020-08-06 03:55] VITALS: BP 119/59
[2020-08-06 07:00] VITALS: BP 170/72
[2020-08-06] MEDS: IPRATRPIUM/ALBUTEROL 0.5/2.5MG 3 ML NEBU. NEB SCH ×3 (08:00→11:55)
[2020-08-06] MEDS: PANTOPRAZOLE 40 MG TABLET.DR. PO SCH (08:27)
[2020-08-06] MEDS: LACTOBACILLUS RHAMNOSUS GG 1 CAPSULE. PO SCH (08:28)
[2020-08-06] MEDS: FUROSEMIDE 20 MG TABLET PO SCH (08:28)
[2020-08-06] MEDS: FAMOTIDINE 20 MG TABLET. PO SCH (08:28)
[2020-08-06] MEDS: MONTELUKAST SODIUM 10 MG TABLET. PO SCH (08:28)
[2020-08-06] MEDS: NAPROXEN 500 MG TABLET PO SCH (08:28)
[2020-08-06] MEDS: diphenhydrAMINE HCL 25 MG CAPSULE PO SCH (08:29)
[2020-08-06] MEDS: ASPIRIN CHEWABLE 81 MG TABLET. PO SCH (08:29)
[2020-08-06] MEDS: CITALOPRAM 20 MG TABLET. PO SCH (08:29)
[2020-08-06] MEDS: DEXAMETHASONE 4 MG TABLET PO SCH (08:29)
[2020-08-06] MEDS: LISINOPRIL 20 MG TABLET PO SCH (08:29)
[2020-08-06] MEDS: CYANOCOBALAMIN (VITAMIN B-12) 1,000 MCG TABLET. PO SCH (08:29)
--- NOTE | 2020-08-06 09:04 | PDOC ---
PROGRESS NOTES Date of Service: DATE: 08/06/20 TIME: 09:04 Subjective Subjective less wheezing today Objective Objective Vital Signs Date Time Temp Pulse Resp B/P (MAP) Pulse Ox O2 Delivery O2 Flow Rate FiO2 08/06/20 08:29 52 170/72 08/06/20 08:00 Room Air 08/06/20 07:00 97.1 18 94 97.1 Intake and Output 08/06/20 07:00 Intake Total 960 ml Output Total 1650 ml Balance -690 ml Intake Oral 960 ml Output Urine Total 1650 ml Physical Exam Abdomen: Normal bowel sounds Heart: Regular rate General: No acute distress HEENT: Atraumatic Lungs: Other (Mildly decreased breath sounds) MUSCULOSKELETAL: Osteoarthritic changes both hands Neck: Supple Neuro: Normal speech Psych/Mental Status: Mental status NL Skin: No breakdown Diagnosis Problem List Problems Medical Problems: (1) COPD exacerbation Status: Acute (2) Cough Status: Acute (3) Person under investigation for COVID-19 Status: Acute Assessment Assessment Problems Medical Problems: (1) COPD exacerbation Status: Acute (2) Cough Status: Acute (3) Person under investigation for COVID-19 Status: Acute FINAL IMPRESSION: 1. Fever. 2. Rule out COVID. 3. Hypertension. 4. Hyperlipidemia. 5. History of asthma. PLAN: ?home today cxr- no pneumonia no more fevers covid -neg. cxr good labs good inc dexamethasone tid po doxycycline needs nebulizer machine for home use Plan Plan of Care Problems Medical Problems: (1) COPD exacerbation Status: Acute (2) Cough Status: Acute (3) Person under investigation for COVID-19 Status: Acute Comment Review of Relevant I have reviewed the following items beverly (where applicable) has been applied. Labs Microbiology 08/03/20 Blood Culture - Preliminary, Resulted NO GROWTH AFTER 3 DAYS 08/02/20 Urine Culture - Final, Complete Vitals/I & O Vital Sign - Last 24 Hours 08/05/20 08/05/20 08/05/20 08/05/20 11:05 11:59 15:04 15:40 Temp 97.1 97.3 97.1 97.3 Pulse 68 72 Resp 20 20 B/P (MAP) 140/64 (89) 125/60 (81) Pulse Ox 93 94 93 O2 Delivery Room Air Room Air Room Air Room Air 1/408/05/20 08/05/20 08/05/20 19:45 20:00 20:40 23:49 Temp 97.8 97.5 97.8 97.5 Pulse 66 53 Resp 18 20 B/P (MAP) 119/56 (77) 150/66 (94) Pulse Ox 94 96 95 O2 Delivery Room Air Room Air Room Air Room Air 08/06/20 08/06/20 08/06/20 08/06/20 03:55 07:00 08:00 08:29 Temp 97.7 97.1 97.7 97.1 Pulse 56 52 52 Resp 20 18 B/P (MAP) 119/59 (79) 170/72 (104) 170/72 Pulse Ox 94 94 O2 Delivery Room Air Room Air Room Air 08/06/20 08:29 Pulse 52 B/P (MAP) 170/72 Intake and Output 08/05/20 08/05/20 08/06/20 15:00 23:00 07:00 Intake Total 440 ml 400 ml 120 ml Output Total 650 ml 1000 ml Balance -210 ml 400 ml -880 ml Justifications for Admission Chest Pain Indications Is patient at high risk?: Yes Justification for admission: Patient is high risk based on hemodynamic instability, CHF, abnormal EKG/ECG/cardiac biomarkers/physical exam findings in context of chest pain persisting despite parenteral analgesics & optimal anti-anginal therapy. Other Justification JEAN CLAUDE MUNOZ MD Aug 06, 2020 09:04
[2020-08-06] MEDS: BUDESONIDE 0.5 MG/2 ML NEBU. NEB SCH (09:05)
[2020-08-06 11:00] VITALS: BP 121/56
--- NOTE | 2020-08-06 11:24 | NUR ---
SW following for discharge planning. Spoke with RN and reviewed chart. Pt to discharge home today, self-care. Nebulizer provided to pt on 08/05. No further SW needs at this time.
[2020-08-06] MEDS: cefTRIAXone IV Push 1 GM VIAL. IVP SCH (11:53)
--- NOTE | 2020-08-06 12:23 | PDOC ---
CARDIO Progress Notes Date and Time Date of Service 08/06/19 Time of Evaluation 1210 Subjective Subjective: No Chest Pain, No Palpitations, No Dizziness, Other (breathing improved ) Vitals Vitals Vital Signs Date Time Temp Pulse Resp B/P (MAP) Pulse Ox O2 Delivery O2 Flow Rate FiO2 08/06/20 11:56 Room Air 08/06/20 09:09 96 08/06/20 08:29 52 170/72 08/06/20 07:00 97.1 18 97.1 Weight Weight [ ] Input and Output Intake and Output Intake and Output 08/06/20 07:00 Intake Total 960 ml Output Total 1650 ml Balance -690 ml Intake Oral 960 ml Output Urine Total 1650 ml Microbiology Micro Microbiology 08/03/20 Blood Culture - Preliminary, Resulted NO GROWTH AFTER 3 DAYS 08/02/20 Urine Culture - Final, Complete Physical Exam HEENT: Neck Supple W Full Motion Chest: Symmetric LUNGS: Other (diminished bases) Heart: RRR Abdomen: Soft N/T Extremities: No Edema Neurology: alert, oriented, follow commands Assessment Assessment 1. Acute bronchitis/COPD exacerbation/URI. afebrile here. COVID negative. 2. Chest pain, atypical. AMI ruled out. 3. Chronic diastolic CHF; Echo 05/2018 with preserved LV systolic function. Nt Pro BNP 201, CXR with pulm edema. Doubt overt HF. Follow up in our office with Dr. Tolbert as scheduled. Outpatient echocardiogram 4. SSS s/p PPM ([employer]- MRI compatible). Previously followed wtih Dr. Parekh at , but has not seen since 2018. Would like to establish cardiology care at [facility] as it is more convenient 5. Hypertension; controlled 6, UTI Justicifation of Admission Dx: Justifications for Admission: Justification of Admission Dx: Yes Comments: Chest pain COPD Exacerbation SHANTE GALAVIZ APRN Aug 06, 2020 12:23
--- NOTE | 2020-08-06 14:16 | NUR ---
Discharge Note: [place] Discharge instructions and discharge home medications reviewed with Patient and a copy given. All questions have been answered and understanding verbalized. The following instructions and handouts were given: prescriptions, follow up istructinos, medication education Discontinued lines and drains: 20 gauge left AC, tip intact. patient tolerated well. Patient discharged to home with self care via daughter.
--- NOTE | 2020-08-11 11:00 | PDOC ---
Provider Note Date of Service: DATE: 08/11/20 TIME: 10:59 Provider Note Discharge summary dictated.#[id number]. Justifications for Admission Chest Pain Indications Is patient at high risk?: Yes Justification for admission: Patient is high risk based on hemodynamic instability, CHF, abnormal EKG/ECG/cardiac biomarkers/physical exam findings in context of chest pain persisting despite parenteral analgesics & optimal anti-anginal therapy. Other Justification JEAN CLAUDE MUNOZ MD Aug 11, 2020 11:00
--- NOTE | 2020-08-11 11:06 | DS ---
DATE OF DISCHARGE: 08/06/2020 REASON FOR ADMISSION TO THE HOSPITAL: Bronchitis, COPD with exacerbation and asthma with exacerbation. CONSULTATION: Rc Tolbert MD PROCEDURES DONE: None. COMPLICATIONS NOTED: None. HOSPITAL COURSE: The patient is a 60-year-old female, came with cough. She had some chest pain, was seen by Cardiology. Cardiac enzymes were negative. EKG negative. The patient was wheezing. Chest x-ray shows scarring in the lung, no acute infiltrates. The patient was started with IV Solu-Medrol and IV antibiotics. CBC and chem profile were unremarkable. Troponin was negative. COVID test was negative. Influenza was negative. FINAL IMPRESSION: 1. Chronic obstructive pulmonary disease/asthma with acute exacerbation. 2. Bronchitis. 3. Chest pain, noncardiac. 4. Hypertension. 5. Hyperlipidemia. 6. History of pacemaker. PLAN: At this time was discharge to home with prednisone and doxycycline, scheduled to see outpatient Cardiology. She was given nebulizer machine for home use; use DuoNeb 4 times daily. JEAN CLAUDE MUNOZ MD DR: MAX/keshawn JOB#: [id number] / [id number]
== END 2020-08-06 14:10 | disposition home or self-care (01) | DRG 191 ==
LOC: ER 17:35 → 6 SOUTH 21:26
PROVIDERS: ADMIT Internal Medicine; ATTEND Internal Medicine
DX: J44.1 Chronic obstructive pulmonary disease with (acute) exacerbation (principal); N39.0 Urinary tract infection, site not specified; I50.32 Chronic diastolic (congestive) heart failure; I49.5 Sick sinus syndrome; J44.0 Chronic obstructive pulmonary disease with (acute) lower respiratory infection; E78.5 Hyperlipidemia, unspecified; J20.9 Acute bronchitis, unspecified; I11.0 Hypertensive heart disease with heart failure; M19.90 Unspecified osteoarthritis, unspecified site; K21.9 Gastro-esophageal reflux disease without esophagitis; E78.00 Pure hypercholesterolemia, unspecified; I25.10 Atherosclerotic heart disease of native coronary artery without angina pectoris; Z88.8 Allergy status to other drugs, medicaments and biological substances; Z95.0 Presence of cardiac pacemaker; Z83.3 Family history of diabetes mellitus; Z82.49 Family history of ischemic heart disease and other diseases of the circulatory system; Z20.822 Contact with and (suspected) exposure to COVID-19
CPT/HCPCS: 36415; 36600; 71045; 71046; 80053; 80307; 81001; 82553; 83605; 83735; 83880; 84100; 84145; 84443; 84484; 85025; 85610; 85730; 87040; 87086; 87804; 90471; 90686; 93005; 94640; 94660; 94760; 96360; 99285; J0696; J0744; J1100; J2270; J7030; U0003; 97116-GP; 97530-GP; 97535-GO; G0378; J7613; J7626; Q0163

== ENCOUNTER → 2020-08-27 | Outpatient (CLI) | payer OTHER ==
[2020-08-06 11:00] VITALS: BP 121/56
[~2020-08-27] MED LIST changes: +DEXA4TAB63 PO; +DOXY100C2 PO; +FURO20TA3 PO; -MORPHINE SULFATE 4 MG/ML VIAL. IV PRN
--- NOTE | 2020-08-27 17:13 | CARD ---
MR#: [id number] Date of Study: 08/27/2020 Ordering Physician: SHERWIN MARES, Referring Physician: SHERWIN MARES, Tech: Deborah Herman, [facility] APPROVED REPORT EXAM: Two-dimensional and M-mode echocardiogram with Doppler and color Doppler. Other Information Quality : AverageHR: 71bpm Rhythm : NSRAtrial Fibrillation INDICATION Congestive Heart Failure Surgery/Intervention Pacemaker: Date: 2012 RISK FACTORS Hypertension Hyperlipidemia 2D DIMENSIONS RVDd2.7 (2.9-3.5cm)Left Atrium(2D)3.2 (1.6-4.0cm) IVSd1.1 (0.7-1.1cm)Aortic Root(2D)2.7 (2.0-3.7cm) LVDd4.5 (3.9-5.9cm)LVOT Diameter2.1 (1.8-2.4cm) PWd1.0 (0.7-1.1cm)LVDs2.8 (2.5-4.0cm) FS (%) 37.8 %SV64.4 ml Aortic Valve AoV Peak Ramin.146.7cm/sAoV VTI23.9cm AO Peak GR.8.6mmHgLVOT Peak Ramin.104.3cm/s LVOT VTI 19.87cmAO Mean GR.4mmHg RADU (VMAX)1.65zn2JWG (VTI)2.86cm2 Mitral Valve MV E Sgkwlcmh60.6cm/sMV DECEL HMTV579pq MV A Boqafvbw07.2cm/sMV RWE47sl E/A Ratio0.9MVA (PHT)3.27cm2 TDI E/Lateral E'5.8E/Medial E'9.8 Pulmonary Valve PV Peak Jtfkjqxt406.2cm/sPV Peak Grad.4mmHg Tricuspid Valve TR P. Fqddzmwz200rh/sRAP AICHNEYG9dqXm TR Peak Gr.26lkDjTFMN12bgUy Pulmonary Vein S1 Nhskwrby42.3cm/sD2 Hfznhwwo42.6cm/s PVa nijbblcv303kwhq LEFT VENTRICLE The left ventricle is normal size. There is borderline to mild concentric left ventricular hypertroph y. The left ventricular systolic function is normal and the ejection fraction is within normal range. The Ejection Fraction is 55-60%. There is normal LV segmental wall motion. Transmitral Doppler flow pattern is Grade II-pseudonormal filling dynamics. RIGHT VENTRICLE The right ventricle is normal size. There is normal right ventricular wall thickness. The right ventr icular systolic function is normal. There is a device lead in the right ventricle. ATRIA The left atrium size is normal. The right atrium size is normal. The interatrial septum is intact wit h no evidence for an atrial septal defect or patent foramen ovale as noted on 2-D or Doppler imaging. AORTIC VALVE The aortic valve is normal in structure and function. Doppler and Color Flow revealed no significant aortic regurgitation. There is no significant aortic valvular stenosis. Calculated aortic valve area is 2.55 cm2 with maximum pressure gradient of 9 mmHg and mean pressure gradient of 4 mmHg. MITRAL VALVE The mitral valve is normal in structure and function. There is no evidence of mitral valve prolapse. There is no mitral valve stenosis. Doppler and Color-flow revealed trace mitral regurgitation. TRICUSPID VALVE The tricuspid valve is normal in structure and function. Doppler and Color Flow revealed trace tricus pid regurgitation with an estimated PAP of 26 mmHg. There is no tricuspid valve stenosis. PULMONIC VALVE The pulmonic valve is not well visualized. Doppler and Color Flow revealed trace pulmonic valvular re gurgitation. GREAT VESSELS The aortic root is normal in size. The IVC is normal in size and collapses >50% with inspiration. PERICARDIAL EFFUSION There is no evidence of significant pericardial effusion. Critical Notification Critical Value: No <Conclusion> The left ventricle is normal size. The left ventricular systolic function is normal and the ejection fraction is within normal range. The Ejection Fraction is 55-60%. There is borderline to mild concentric left ventricular hypertrophy. Doppler and Color Flow revealed no significant aortic regurgitation. There is no significant aortic valvular stenosis. Doppler and Color-flow revealed trace mitral regurgitation. Doppler and Color Flow revealed trace tricuspid regurgitation with an estimated PAP of 26 mmHg. Signed by : Rc Craig MD Electronically Approved : 08/27/2020 17:13:01
== END ==
LOC: ECHO 13:09
PROVIDERS: ATTEND Internal Medicine Cardiovascular Disease
DX: I51.7 Cardiomegaly (principal); I50.9 Heart failure, unspecified
CPT/HCPCS: 93306

== ENCOUNTER 2021-03-07 17:51 | Emergency (ER) | payer OTHER ==
[~2021-03-07] VITALS: Ht 154.9 cm; Wt 81.3 kg
[~2021-03-07 17:51] MED LIST changes: -DOXY100C2 PO; +DOXY100C3 PO
--- NOTE | 2021-03-07 18:28 | EKG ---
[facility] [address] [place] [address] Test Date: 2021-03-07 Test Time: 18:02:20 Pat Name: MEMO PIERCE Department: Room: Gender: F Follow Up Specialist: : 1960 Requested By: PARISA LEES Order Number: [id number] Reading MD: Measurements Intervals [place] Rate: 78 P: 48 CT: 194 QRS: 20 QRSD: 70 T: 23 QT: 334 QTc: 384 Interpretive Statements SINUS RHYTHM NORMAL ECG RI6.02 No previous ECG available for comparison
[2021-03-07] MEDS ORDERED: ACETAMINOPHEN 500 MG TABLET PO ONE (18:30)
[2021-03-07] MEDS ORDERED: IV NORMAL SALINE 1000ML BAG 1,000 ML IV SCH (18:30)
--- NOTE | 2021-03-07 18:49 | PHYS DOC ---
Past Medical History Past Medical History: Asthma, CHF, COPD, GERD, Heart Disease, Hypertension Past Surgical History: Pacemaker, Tubal ligation Additional Past Surgical Histo: pacemaker Smoking Status: Former Smoker Alcohol Use: None Drug Use: None General Adult EDM: Chief Complaint: MULTIPLE COMPLAINTS HPI: HPI: 61-year-old female past medical history of asthma/COPD, hypertension, hyperlipidemia, bradycardia with pacemaker (has been implanted Dr. Glez/prior to this was seen at ), presents to the ED with complaints of cough, left-sided chest pain and anorexia (lack of appetite) for the past 24 hours, patient was unaware she had a fever. Patient is not vaccinated for Covid. Patient states this feels like her asthma. Denies a history of CHF. EMR was reviewed and patient echocardiogram in August 2020 that showed EF of 55 to 60%-patient has been admitted for chest pain, shortness of breath and a PUI, Covid test was negative at that time. Is tolerating food and drink. Review of Systems: Review of Systems: Constitutional: Denies fever or chills. [] Eyes: Denies change in visual acuity. [] HENT: Denies nasal congestion or sore throat. [] Respiratory: Denies hemoptysis or shortness of breath. [] Cardiovascular: Denies syncope or edema GI: Denies abdominal pain, nausea, vomiting, bloody stools or diarrhea. [] : Denies dysuria or hematuria Musculoskeletal: Denies back pain or joint pain. [] Integument: Denies rash or diaphoresis Neurologic: Denies headache, focal weakness or sensory changes. [] Endocrine: Denies polyuria or polydipsia. [] Lymphatic: Denies swollen glands. [] Psychiatric: Denies depression or anxiety. [] Heart Score: C/O Chest Pain: Yes HEART Score for Chest Pain: HEART Score for Chest Pain Response (Comments) Value History Slighlty/Non-Suspicious 0 ECG Normal 0 Age >45 - < 65 1 Risk Factors >3 Risk Factors or Hx CAD 2 Troponin < Normal Limit 0 Total 3 Risk Factors: Risk Factors: DM, Current or recent (<one month) smoker, HTN, HLP, family history of CAD, obesity. Risk Scores: Score 0 - 3: 2.5% MACE over next 6 weeks - Discharge Home Score 4 - 6: 20.3% MACE over next 6 weeks - Admit for Clinical Observation Score 7 - 10: 72.7% MACE over next 6 weeks - Early Invasive Strategies Current Medications: Current Medications Medications (Trade) Dose Ordered Sig/Paula Start Time Stop Time Status Last Admin Dose Admin Acetaminophen (Tylenol) 1,000 mg 1X ONCE 03/07/21 18:30 03/07/21 18:31 DC Sodium Chloride 1,000 ml @ 1,000 mls/hr Q1H 03/07/21 18:30 03/07/21 19:29 Allergies: Allergies: Allergies Coded Allergies Type Severity Reaction Last Updated Verified piperacillin Allergy Intermediate rash 08/02/20 No tazobactam Allergy Intermediate rash 08/02/20 No Physical Exam: PE: Constitutional: Well developed, well nourished, no acute distress, non-toxic appearance, febrile HENT: Normocephalic, atraumatic, moist mucous membranes Eyes: EOMI, conjunctiva normal, no discharge. Neck: Normal range of motion, supple, Cardiovascular: S1/2 present, regular rhythm, grabs under left breast -location of pts' pain which is not reproducible Lungs & Thorax: Speaking in full sentences, bilateral equal chest rise, no tachypnea or increased work of breathing, 95% on room air Abdomen: soft, no tenderness, Skin: Warm, dry, no erythema, no rash. [] Extremities: No tenderness, no cyanosis, no lower extremity edema Neurologic: Alert and oriented X 3, normal motor function, normal sensory function, no focal deficits noted. [] Psychologic: Affect normal, judgement normal, mood normal. [] Current Patient Data: Vital Signs: Vital Signs Date Time Temp Pulse Resp B/P (MAP) Pulse Ox O2 Delivery O2 Flow Rate FiO2 03/07/21 18:05 102.7 73 18 152/72 (77) 95 Room Air 102.7 EKG: EKG: Sinus rhythm 70 bpm, no axis deviation, normal intervals, no T wave inversions, no ST elevations or ST depressions Radiology/Procedures: Radiology/Procedures: IMAGING REPORT Signed PATIENT: MEMO PIERCE ACCOUNT: [id number] : 1960 LOCATION: ER AGE: 61 SEX: F EXAM STATUS: REG ER ORD. PHYSICIAN: PARISA LEES DO REASON: cp PROCEDURE: PORTABLE CHEST 1V INDICATION: Reason: cp / Spl. Instructions: / History: COMPARISON: August 05, 2020 FINDINGS: Single view of chest obtained. 2-lead pacemaker. Cardiac silhouette is similar to prior. Relative opacity at the left lung base. No definite consolidation elsewhere in the lungs. IMPRESSION: * Relative opacity at the left lung base. Could be secondary to overlap of structures but a focus of atelectasis or infiltrate is not excluded given this finding. Electronically signed by: Dalila Ramos MD (03/07/2021 7:19 PM) [id number] DICTATED and SIGNED BY: DALILA RAMOS MD DATE: 03/07/21 [id number] Course & Med Decision Making: Course & Med Decision Making Pertinent Labs and Imaging studies reviewed. (See chart for details) COVID-19 CRITERIA: The patient was evaluated during the global COVID-19 pandemic, and that diagnosis was suspected/considered upon their initial presentation. Their evaluation, treatment and testing was consistent with current guidelines for patients who present with complaints or symptoms that may be related to COVID-19. Concern for dyspnea in setting of asthma and possible left-sided infiltrate which is location of patient's chest discomfort. Patient is not requiring any supplemental oxygen. Rapid Covid test is negative. Will treat for asthma exacerbation with steroids, Flovent and albuterol. Will also prescribe him azithromycin to cover for community-acquired pneumonia. Will discharge home with strict ED return precautions were given for neurologic deficits, syncope, increased work of breathing, hemoptysis, leg swelling or worsening chest pain. Encouraged urgent outpatient follow-up with PMD and pulmonology for asthma management. Life-threatening processes were considered but are low suspicion at this time, given history, physical exam and ED workup. Pt was educated on all prescription medications and adverse effects. All patient's questions were answered and pt was stable at time of discharge. Life/limb-threatening differential includes but is not limited to, acute myocardial infarction, aortic dissection, congestive heart failure, esophageal injury including rupture, surgical abdomen, arrhythmia, cardiomyopathy, myocarditis, pericarditis, peptic ulcer disease, pneumomediastinum, pneumonia, pneumothorax, pulmonary embolus, unstable angina, rib fracture, contusion, pericardial tamponade or effusion, traumatic injury including mediastinal hemorrhage or hematoma, or pulmonary contusion. I have spoken with the patient and/or caregivers. I explained the patient's condition, diagnoses and treatment plan based on the information available to me at this time. I have answered the patient and/or caregiver's questions and addressed any concerns. The patient and/or caregivers have a good understanding of patient's diagnosis, condition and treatment plan as can be expected at this point. Vital signs have been stable. Patient's condition is stable and appropriate for discharge from the emergency department. Patient will pursue further outpatient evaluation with primary care physician or other designated or consulting physician as outlined in the discharge instructions. The patient and/or caregivers are agreeable to this plan of care and follow-up instructions have been explained in detail. The patient and/or caregivers have received these instructions in written form and have expressed an understanding of the discharge instructions. The patient and/or caregivers are aware that any significant change of condition or worsening of symptoms should prompt immediate return to this or the closest emergency department or call to 911. [place] Disclaimer: Draglou Disclaimer: This electronic medical record was generated, in whole or in part, using a voice recognition dictation system. Departure Departure Impression: Primary Impression: COVID-19 Additional Impressions: Asthma Atypical pneumonia Disposition: 01 HOME / SELF CARE / HOMELESS Condition: STABLE Referrals: JEAN CLAUDE MUNOZ MD (PCP) In 1 to 2 days for reevaluation Patient Instructions: Asthma Prevention-Brief, Asthma, Adult, Pneumonia, Adult Additional Instructions: Return to ED immediately if your oxygen level drops below 90% (purchase a pulse oximetry at a medical supply store), difficulties breathing including rapid breathing or increased work of breathing (skin sucking under ribs), chest pain or stroke-like symptoms (facial droop, speech changes, arm/leg weakness). FOLLOW UP WITH PULMONOLOGY: FOR DEFINITIVE MANAGEMENT of asthma [facility] [address] [place] [address] You have been tested for or diagnosed with COVID-19. It is an infection caused by a new type of coronavirus. COVID-19 will cause cold-like or mild flu symptoms in most. It can cause more severe symptoms like problems breathing in some. There is no treatment for COVID-19. The body will clear the infection over time. Self-care will help to ease discomfort. Steps to Take: Self-Care Rest as needed. Healthy habits may help you feel better. Steps include: Choose healthy foods including fruits and vegetables. Drink water throughout the day. Get plenty of sleep each night. If you smoke, try to quit. It may ease breathing. Avoid alcohol. Keep Others Healthy The virus can spread to others. Droplets are released every time you sneeze or cough. The droplets can get into the mouth, nose, or eyes of people near you and lead to infection. To lower the chances of spreading COVID-19 to others: Stay at home until your doctor has said it is safe to leave. If you tested positive this will mean staying isolated until both of the following are true: At least 7 days have passed since the start of illness. You are free of fever for at least 72 hours without the use of medicine. During this time: - Avoid public areas, events, or transportation. Do not return to work or school until your doctor has said it is safe to do so. - Call ahead if you need to go to a medical center. Let them know you may have COVID-19. It will help them guide you where to go. They may also ask you to wear a facemask when you come to the office. - If you call for emergency medical services, let them know you may have COVID- 19. While at home: - Try to avoid close contact with others. Stay about 6 feet away. - If possible, spend most of your time in a separate room from others. - Use a face mask if you will be in close contact with others such as sharing a room or vehicle. - Have someone wipe down common surfaces in the home. Use household stained glass installer every day on areas like doorknobs, counters, or sinks. - Cough or sneeze into a tissue. Throw the tissue away right after use. If a tissue is not available, cough or sneeze into your elbow. - Wash your hands often. Wash them after sneezing or coughing. Use soap and water and wash for at least 20 seconds. Alcohol based hand mold sheet cleaner can be used if soap and water is not available. - Do not prepare food for others. Avoid sharing personal items like forks, spoons, or toothbrushes. - Avoid close contact with pets while you are sick. There is no evidence of the virus passing to pets. This is a safety step until more is known about this virus. Isolation can be frustrating. Social interaction can help. Keep in touch with friends and family through phone and tech options. You can still interact with others in your home, just keep a safe distance of about 6 feet. Follow-up: Your doctors office will check in with you to see if there are any changes in your health. You may be asked to keep track of symptoms to share with them. They will also let you know when you are clear to be in public again. Problems to Look Out For: Contact your doctor if your recovery is not going as you expect. Get emergency care if you have problems such as: - Trouble breathing - Nonstop chest pain or pressure - Changes in awareness, confusion, or problems waking - Lips or face have bluish color - Worsening of symptoms If you think you have an emergency, call for emergency medical services right away. As taken from [facility] Azithromycin (ZITHROMAX) 250 Mg Tablet 1 PKG PO UD, #6 TAB Prov: PARISA LEES DO 03/07/21 Albuterol Sulfate (VENTOLIN HFA INHALER) 18 Gm Hfa.aer.ad 2 PUFF INH QID for FOR ASTHMA, #1 INHALER 0 Refills Prov: PARISA LEES DO 03/07/21 Fluticasone Propionate (FLOVENT 44MCG HFA) 10.6 Gm Aer.w.adap 2 PUFF IH BID, #1 INHALER 0 Refills Prov: PARISA LEES DO 03/07/21 Prednisone (PREDNISONE) 50 Mg Tablet 1 TAB PO DAILY, #5 TAB Prov: PARISA LEES DO 03/07/21 PARISA LEES DO Mar 07, 2021 18:49
[2021-03-07] MEDS ORDERED: DEXAMETHASONE SOD PHOS 20 MG/5 ML VIAL. IV ONE (19:00)
[2021-03-07] MEDS ORDERED: IPRATRPIUM/ALBUTEROL 0.5/2.5MG 3 ML NEBU. NEB ONE (19:00)
--- NOTE | 2021-03-07 19:21 | RAD ---
INDICATION: Reason: cp / Spl. Instructions: / History: COMPARISON: August 05, 2020 FINDINGS: Single view of chest obtained. 2-lead pacemaker. Cardiac silhouette is similar to prior. Relative opacity at the left lung base. No definite consolidation elsewhere in the lungs. IMPRESSION: * Relative opacity at the left lung base. Could be secondary to overlap of structures but a focus of atelectasis or infiltrate is not excluded given this finding. Electronically signed by: Isidro Encarnacion MD (03/07/2021 7:19 PM) [id number]
[2021-03-07 19:25] LABS: BASO % 1 % (0-3); EOS % 0 % (0-3); HEMATOCRIT 38.8 % (36.0-47.0); LYMPH # 0.9 x10^3/uL (1.0-4.8); LYMPH % 18 % (24-48); MEAN CORPUSCULAR HEMOGLOBIN 27 pg (25-35); MEAN CORPUSCULAR HGB CONC 34 g/dL (31-37); MEAN CORPUSCULAR VOLUME 81 fL (79-100); MONO # 0.5 x10^3/uL (0.0-1.1); MONO % 11 % (0-9); NEUT # 3.7 x10^3/uL (1.8-7.7); NEUT % 71 % (31-73); PLATELET COUNT 151 x10^3/uL (140-400); RED CELL DISTRIBUTION WIDTH 14.7 % (11.5-14.5); WHITE BLOOD COUNT 5.2 x10^3/uL (4.0-11.0)
[2021-03-07 19:42] LABS: CALCIUM 8.6 mg/dL (8.5-10.1); GFR 56.2; POTASSIUM 4.3 mmol/L (3.5-5.1)
[2021-03-07 19:48] LABS: DIRECT BILIRUBIN 0.1 mg/dL (0.0-0.2); MAGNESIUM 2.2 mg/dL (1.8-2.4); TOTAL BILIRUBIN 0.3 mg/dL (0.2-1.0); TOTAL PROTEIN 6.9 g/dL (6.4-8.2)
[2021-03-07 21:03] VITALS: BP 149/65
[2021-03-07] MEDS ORDERED: VENTOLIN HFA18 GM INH (21:15)
[2021-03-07] MEDS ORDERED: FLUT10.6 IH (21:15)
[2021-03-07] MEDS ORDERED: PRED50TA PO (21:15)
[2021-03-07] MEDS ORDERED: AZIT250T PO (21:21)
--- NOTE | 2021-03-08 16:41 | NUR ---
IP: Attempted to contact pt concerning covid results. No answer, left a voicemail to return the call.
[2021-03-17] MEDS ORDERED: TRAM50TA PO (22:43)
[2021-03-17] MEDS ORDERED: DEXA4TAB63 PO (22:43)
== END 2021-03-07 21:10 | disposition home or self-care (01) ==
LOC: ER 17:51
DX: U07.1 COVID-19 (principal); J18.9 Pneumonia, unspecified organism; J44.9 Chronic obstructive pulmonary disease, unspecified; K21.9 Gastro-esophageal reflux disease without esophagitis; I11.9 Hypertensive heart disease without heart failure; E78.5 Hyperlipidemia, unspecified; Z95.0 Presence of cardiac pacemaker; Z88.1 Allergy status to other antibiotic agents; Z88.8 Allergy status to other drugs, medicaments and biological substances
CPT/HCPCS: 36415; 71045; 80048; 80076; 83605; 83690; 83735; 83880; 84484; 85025; 87040; 87426; 93005; 94640; 96361; 96374; 99285; J1100; J7030; U0003; U0005

== ENCOUNTER 2021-03-15 16:48 | Inpatient (IN) | payer OTHER ==
[~2021-03-15] VITALS: Ht 154.9 cm; Wt 84.1 kg
[~2021-03-15 16:48] MED LIST changes: +AZIT250T PO; +FLUT10.6 IH
[2021-03-15] MEDS ORDERED: DEXAMETHASONE SOD PHOS 20 MG/5 ML VIAL. IV ONE (17:15)
--- NOTE | 2021-03-15 17:31 | PHYS DOC ---
Past Medical History Past Medical History: Asthma, CHF, COPD, GERD, Heart Disease, Hypertension (JULIA LAU Julio OLIVE PICKER) Past Surgical History: Pacemaker, Tubal ligation Additional Past Surgical Histo: pacemaker (JULIA LAU Julio OLIVE PICKER) Smoking Status: Never Smoker Alcohol Use: Occasionally Drug Use: None (JULIA LAU Julio OLIVE PICKER) General Adult EDM: Chief Complaint: SHORTNESS OF BREATH HPI: HPI: Patient is a 61 year old female with a history of hypertension, COPD, asthma, heart disease, who presents to the ED today complaining of cough and shortness of breath for 1 week. Patient is also complaining of mild intermittent bilateral low back pain mostly when she is coughing, symptoms began a week ago. Patient denies anything specifically exacerbating or relieving her back pain. Denies any chest pain, fever, nausea vomiting. She states she was on steroids for couple days last dose taken the day before yesterday. Patient states she was Covid +2 weeks ago. (JULIA LAU Julio OLIVE PICKER) Review of Systems: Review of Systems: Constitutional: Denies fever or chills. [] Eyes: Denies change in visual acuity. [] HENT: Denies nasal congestion or sore throat. [] Respiratory: Reports cough and shortness of breath. [] Cardiovascular: Denies chest pain or edema. [] GI: Denies abdominal pain, nausea, vomiting, bloody stools or diarrhea. [] : Denies dysuria. [] Musculoskeletal: Denies back pain or joint pain. [] Integument: Denies rash. [] Neurologic: Denies headache, focal weakness or sensory changes. [] Psychiatric: Denies depression or anxiety. [] (SELINNathalieJULIA Kim OLIVE PICKER) Heart Score: C/O Chest Pain: N/A Risk Factors: Risk Factors: DM, Current or recent (<one month) smoker, HTN, HLP, family history of CAD, obesity. Risk Scores: Score 0 - 3: 2.5% MACE over next 6 weeks - Discharge Home Score 4 - 6: 20.3% MACE over next 6 weeks - Admit for Clinical Observation Score 7 - 10: 72.7% MACE over next 6 weeks - Early Invasive Strategies (JULIA LAU OLIVE PICKER) Current Medications: Current Medications Medications (Trade) Dose Ordered Sig/Paula Start Time Stop Time Status Last Admin Dose Admin Dexamethasone Sodium Phosphate (Decadron) 10 mg 1X ONCE 03/15/21 17:15 03/15/21 17:16 DC (JULIA LAU Julio GUZMAN) Allergies: Allergies: Allergies Coded Allergies Type Severity Reaction Last Updated Verified piperacillin Allergy Intermediate rash 08/02/20 No tazobactam Allergy Intermediate rash 08/02/20 No (JULIA LAU Julio GUZMAN) Physical Exam: PE: Constitutional: Well developed, well nourished, no acute distress, non-toxic appearance. [] HENT: Normocephalic, atraumatic, bilateral external ears normal, oropharynx moist, no oral exudates, nose normal. [] Eyes: PERRLA, EOMI, conjunctiva normal, no discharge. [] Neck: Normal range of motion, no tenderness, supple, no stridor. [] Cardiovascular:Heart rate regular rhythm, no murmur [] Lungs & Thorax: Bilateral breath sounds clear to auscultation [] Abdomen: Bowel sounds normal, soft, no tenderness, no masses, no pulsatile masses. [] Skin: Warm, dry, no erythema, no rash. [] Back: No tenderness, no CVA tenderness. [] Extremities: No tenderness, no cyanosis, no clubbing, ROM intact, no edema. [] Neurologic: Alert and oriented X 3, normal motor function, normal sensory function, no focal deficits noted. [] Psychologic: Affect normal, judgement normal, mood normal. [] (SIDJULIA Julio GUZMAN) EKG: EKG: [] (JULIA LAU Julio GUZMAN) Radiology/Procedures: Radiology/Procedures: []PROCEDURE: PORTABLE CHEST 1V Exam: Chest one view INDICATION: Short of air TECHNIQUE: Frontal view of the chest Comparisons: 03/21/2021 FINDINGS: Pacer with leads terminating the right atrium and ventricle. The cardiomediastinal silhouette and pulmonary vessels are within normal limits. The lung and pleural spaces are clear. IMPRESSION: No acute pulmonary process. Electronically signed by: Gisele Novoa MD (03/15/2021 6:07 PM) [facility] DICTATED and SIGNED BY: GISELE NOVOA MD DATE: 03/15/21 [id number] (SIDJULIA Kim APRN) Course & Med Decision Making: Course & Med Decision Making Pertinent Labs and Imaging studies reviewed. (See chart for details) This is a 61-year-old female patient presented to the ED today complaining of cough with shortness of breath, symptoms began a week ago. Vitals on arrival to the ED temperature 98.7, heart rate 76, respiration 18 on room air, blood pressure 187/82, O2 sats 97% CBC CMP troponin EKG with no acute findings. Chest x-ray with no acute findings. Given Decadron in the ED. patient states she is not feeling any better. Spoke to Dr. Rosas who accepted patient on behalf of (JULIA LAU APRN) Course & Med Decision Making Patients Care and treatment plan provided by ER Nurse Practitioner. I was available for consult. Patient's chart reviewed. (ISAIAS VILLA DO) Dragon Disclaimer: Dragon Disclaimer: This electronic medical record was generated, in whole or in part, using a voice recognition dictation system. (JULIA LAU APRN) Departure Departure Impression: Primary Impression: COPD exacerbation Disposition: ADMITTED INPATIENT Condition: STABLE Referrals: JEAN CLAUDE MUNOZ MD (PCP) JULIA LAU APRN Mar 15, 2021 17:30 ISAIAS VILLA DO Mar 16, 2021 18:29
[2021-03-15 17:58] LABS: BASO % 1 % (0-3); EOS % 1 % (0-3); HEMATOCRIT 42.3 % (36.0-47.0); HEMOGLOBIN 14.3 g/dL (12.0-15.5); LYMPH # 1.3 x10^3/uL (1.0-4.8); LYMPH % 25 % (24-48); MEAN CORPUSCULAR HEMOGLOBIN 27 pg (25-35); MEAN CORPUSCULAR HGB CONC 34 g/dL (31-37); MEAN CORPUSCULAR VOLUME 79 fL (79-100); MONO # 0.5 x10^3/uL (0.0-1.1); MONO % 9 % (0-9); NEUT # 3.2 x10^3/uL (1.8-7.7); NEUT % 64 % (31-73); PLATELET COUNT 167 x10^3/uL (140-400); RED BLOOD COUNT 5.34 x10^6/uL (3.50-5.40); RED CELL DISTRIBUTION WIDTH 14.7 % (11.5-14.5)
--- NOTE | 2021-03-15 18:09 | RAD ---
Exam: Chest one view INDICATION: Short of air TECHNIQUE: Frontal view of the chest Comparisons: 03/21/2021 FINDINGS: Pacer with leads terminating the right atrium and ventricle. The cardiomediastinal silhouette and pulmonary vessels are within normal limits. The lung and pleural spaces are clear. IMPRESSION: No acute pulmonary process. Electronically signed by: Gisele Macario MD (03/15/2021 6:07 PM) DAVID
[2021-03-15 18:11] LABS: CALCIUM 8.9 mg/dL (8.5-10.1); CREATININE 0.9 mg/dL (0.6-1.0); GFR 63.4
[2021-03-15 18:16] LABS: ALBUMIN 3.7 g/dL (3.4-5.0); ALBUMIN/GLOBULIN RATIO 1.1 (1.0-1.7); MAGNESIUM 2.5 mg/dL (1.8-2.4); TOTAL BILIRUBIN 0.5 mg/dL (0.2-1.0); TOTAL PROTEIN 7.1 g/dL (6.4-8.2)
--- NOTE | 2021-03-15 18:27 | EKG ---
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
[2021-03-15] MEDS ORDERED: ACETAMINOPHEN 325 MG TABLET. PO PRN (20:45)
[2021-03-15] MEDS ORDERED: MORPHINE SULFATE 2 MG/ML INJ. IVP PRN (20:45)
[2021-03-15 23:06] VITALS: BP 154/68
[2021-03-16 03:24] VITALS: BP 154/74
[2021-03-16 05:57] LABS: CALCIUM 8.7 mg/dL (8.5-10.1); CREATININE 0.8 mg/dL (0.6-1.0); GFR 72.7; POTASSIUM 4.5 mmol/L (3.5-5.1)
[2021-03-16 06:10] LABS: BASO % 0 % (0-3); EOS % 0 % (0-3); HEMATOCRIT 38.6 % (36.0-47.0); LYMPH # 0.5 x10^3/uL (1.0-4.8); LYMPH % 15 % (24-48); MEAN CORPUSCULAR HEMOGLOBIN 27 pg (25-35); MEAN CORPUSCULAR HGB CONC 34 g/dL (31-37); MEAN CORPUSCULAR VOLUME 80 fL (79-100); MONO # 0.1 x10^3/uL (0.0-1.1); MONO % 2 % (0-9); NEUT # 2.9 x10^3/uL (1.8-7.7); NEUT % 82 % (31-73); PLATELET COUNT 161 x10^3/uL (140-400); RED CELL DISTRIBUTION WIDTH 14.6 % (11.5-14.5); WHITE BLOOD COUNT 3.5 x10^3/uL (4.0-11.0)
[2021-03-16 07:02] VITALS: BP 151/76
[2021-03-16] MEDS ORDERED: FLUTICASONE 50MCG/NASAL SPRAY 16GM BOTTLE. NS PRN (09:00)
[2021-03-16] MEDS: FLUTICASONE/VILANTEROL 100/25 INHALER. INH SCH (09:54)
--- NOTE | 2021-03-16 10:26 | PDOC ---
Provider Note Date of Service: DATE: 03/16/21 TIME: 10:26 Provider Note H&P dictated #[id number]. Patient did not take Covid vaccination. Justifications for Admission Other Justification JULIA VANN MD Mar 16, 2021 10:26
[2021-03-16 11:00] VITALS: BP 152/74
[2021-03-16] MEDS: methylPREDNISolone SOD SUCC PF 40 MG/ML VIAL. IV SCH ×2 (12:04→14:29)
[2021-03-16] MEDS: MONTELUKAST SODIUM 10 MG TABLET. PO SCH (12:05)
[2021-03-16] MEDS: CYANOCOBALAMIN (VITAMIN B-12) 1,000 MCG TABLET. PO SCH (12:05)
[2021-03-16] MEDS: ENOXAPARIN 40 MG/0.4 ML SYRINGE. SQ SCH (12:05)
[2021-03-16] MEDS: LISINOPRIL 20 MG TABLET PO SCH (12:06)
[2021-03-16] MEDS: PANTOPRAZOLE 40 MG TABLET.DR. PO SCH (12:06)
[2021-03-16] MEDS: CITALOPRAM 20 MG TABLET. PO SCH ×2 (12:06→20:42)
[2021-03-16] MEDS: FUROSEMIDE 20 MG TABLET PO SCH (12:06)
[2021-03-16] MEDS: ASPIRIN CHEWABLE 81 MG TABLET. PO SCH (12:06)
[2021-03-16] MEDS: ALBUTEROL SULFATE 8GM INHALER. INH SCH ×3 (12:07→19:41)
[2021-03-16] MEDS: DOXYCYCLINE HYCLATE 100 MG in IV DEXTROSE 5% 100ML 100 ML IV SCH ×2 (12:07→20:42)
[2021-03-16] MEDS: ONDANSETRON PF 4 MG/2 ML VIAL. IVP PRN ×2 (12:16→19:40)
--- NOTE | 2021-03-16 14:02 | HP ---
ADMIT DATE: 03/15/2021 ADMITTING PHYSICIAN: Parveen Moore MD HISTORY OF PRESENT ILLNESS: This 61 years old female was diagnosed to have COVID-19 infection about 2 weeks ago. She came to the Emergency Room on 03/07 and was treated with steroids and Zithromax. She feels that her symptoms are getting worse and because of that, she came to the Emergency Room yesterday and was admitted for exacerbation of COPD. Systems review, the patient complains of cough, congestion, dyspnea occasionally and not feeling well. She also has had diarrhea. She denies any nausea, vomiting, fever, chills, swelling of the legs. She feels tired. Other systems reviewed and are negative. PAST MEDICAL HISTORY: The patient was last admitted here in 08/2020. She has a history of recurrent exacerbation of COPD, hypertension, hyperlipidemia, asthma, gastroesophageal reflux disease, hypertension. PAST SURGICAL HISTORY: Has had a pacemaker. SOCIAL HISTORY: No history currently of smoking, alcoholism, or drug abuse. ALLERGIES: THE PATIENT IS ALLERGIC TO PIPERACILLIN AND TAZOBACTAM. MEDICATIONS: Reviewed and reconciled. FAMILY HISTORY: Positive for diabetes and heart disease. PHYSICAL EXAMINATION: GENERAL: The patient is a middle-aged female who is alert, oriented, chronically ill and in mild respiratory distress. VITAL SIGNS: Temperature 98.7, pulse 76 per minute, respirations 18 per minute, blood pressure 187/82 mmHg. This morning it is 151/76 mmHg. SKIN: Warm and dry. There is no cyanosis. EYES: Pupils reacting to light. Conjunctivae pale.: Sclerae muddy. HENT: Mild congestion of throat. NECK: Supple. JVP normal. No thyromegaly. Trachea midline. LUNGS: Decreased breath sounds at bases, bilateral rhonchi. CARDIOVASCULAR SYSTEM: S1, S2 regular. ABDOMEN: Soft, nontender, no guarding, no rigidity. Bowel sounds present. EXTREMITIES: No edema. CENTRAL NERVOUS SYSTEM: Alert and oriented. Generalized weakness. No acute changes. LABORATORY DATA: WBC count 5, hemoglobin 14.3 yesterday. WBC count is 3.5 and hemoglobin 13 today. Sodium 139, potassium 4, BUN 15, creatinine 0.9, magnesium 2.5, calcium 8.9, albumin 3.7, AST 33, ALT 116. Serology, SARS-CoV-2 RNA positive, rapid test is negative. Chest x-ray, no acute pulmonary process. IMPRESSION: 1. Acute exacerbation of chronic obstructive pulmonary disease. 2. COVID-19 infection. 3. Hypertension. 4. Hyperlipidemia. 5. History of permanent pacemaker. 6. History of asthma. PLAN: I will start her on IV Solu-Medrol. Consult Dr. Cuco Obrien for Infectious Disease evaluation and management. Renew home medications. For details, please refer to the orders. I will also start her on IV Rocephin. Previous diarrhea may have been due to Zithromax. For details, please refer to the orders. PBP/MOH/ROBBIE DR: LYNETTE/keshawn TID: [id number] CC: PARVEEN MOORE MD
[2021-03-16 15:00] VITALS: BP 142/56
[2021-03-16] MEDS: ACETAMINOPHEN 325 MG TABLET. PO PRN ×2 (15:34→19:40)
--- NOTE | 2021-03-16 16:00 | CONS ---
DATE OF CONSULTATION: 03/16/2021 REFERRING PHYSICIAN: Dorys Rosas MD REASON FOR CONSULTATION: COVID-19 infection. HISTORY OF PRESENT ILLNESS: A 61-year-old female was diagnosed with COVID about 2 weeks ago. She came to the ER on 03/07, was started on steroids and was also given azithromycin. She continued to have worsening shortness of breath, cough, congestion, decreased appetite, not feeling well and also worsening of her chronic low back pain. The patient remains afebrile, remains on room air, was started on methylprednisolone and doxycycline. ID consultation has been requested for antibiotic management. Today, the patient has nausea. Denies any fevers, chills. Still has some cough. Denies any chest pain, nausea, vomiting, diarrhea, abdominal pain. Continues to have low appetite. Denies any symptoms. Back pain, which she attributes is from the stiffness. PAST MEDICAL HISTORY: COPD, pacemaker, GERD, hyperlipidemia, hypertension. PAST SURGICAL HISTORY: Pacemaker, tubal ligation. SOCIAL HISTORY: Denies smoking, ETOH or illicit drug use. ALLERGIES: ZOSYN. CURRENT MEDICATIONS: Doxycycline. Other medications reviewed in MRAD. FAMILY HISTORY: As per HPI. PHYSICAL EXAMINATION: VITAL SIGNS: Temperature 98.5, pulse 74, respiratory rate 18, blood pressure 152/74, oxygen saturation 92% on room air. GENERAL: Alert, oriented x 3, well-developed, well-nourished female lying in bed comfortably on room air, in no acute distress. HEENT: Normocephalic, atraumatic. Anicteric. No thrush. NECK: Supple. LUNGS: Clear bilaterally. No wheezing. HEART: S1, S2. No murmurs. ABDOMEN: Soft, obese. Bowel sounds present, nontender, nondistended. EXTREMITIES: No edema, no cyanosis. DERMATOLOGIC: Warm, dry. No generalized rash. NEUROLOGIC: Alert, oriented x 3. Grossly nonfocal. PSYCHIATRIC: Calm and cooperative. BACK: Reveals normal curvature. No spine tenderness. LABORATORY DATA: WBC 3.5, hemoglobin 13.0, hematocrit 38.6, platelets 161. Sodium 142, potassium 4.5, chloride 105, bicarb 28, BUN 17, creatinine 0.8, glucose 135. Troponin normal. Lactate normal. TSH normal. Procalcitonin less than 0.50. SARS-COVID PCR positive, rapid negative. DIAGNOSTIC DATA: X-ray: No acute cardiopulmonary process. IMPRESSION: 1. COVID-19 infection diagnosed 03/07/2021. 2. Leukopenia and lymphopenia. 3. Chronic obstructive pulmonary disease. 4. Dyspnea. 5. Hypertension. 6. Gastroesophageal reflux disease. 7. Status post permanent pacemaker. RECOMMENDATIONS: 1. Discontinue doxycycline. 2. Steroids per primary. 3. Continue supportive care. 4. Follow up labs and cultures. 5. Maintain aspiration precaution. 6. Pain management per primary. Thank you for consulting Infectious Disease to participate in this patient's care. If you have any questions, do not hesitate to contact me. Discussed with nursing staff. FATMATA DR: Cahya TID: [id number] MTDBc
[2021-03-16 19:00] VITALS: BP 99/45
[2021-03-16] MEDS ORDERED: ONDANSETRON PF 4 MG/2 ML VIAL. IVP PRN (19:45)
[2021-03-16] MEDS: traZODone 100 MG TABLET. PO SCH (20:42)
[2021-03-16 23:00] VITALS: BP 141/55
[2021-03-17 03:00] VITALS: BP 144/55
[2021-03-17 05:25] LABS: BASO % 0 % (0-3); EOS % 0 % (0-3); HEMATOCRIT 37.6 % (36.0-47.0); HEMOGLOBIN 12.8 g/dL (12.0-15.5); LYMPH # 0.7 x10^3/uL (1.0-4.8); LYMPH % 13 % (24-48); MEAN CORPUSCULAR HEMOGLOBIN 27 pg (25-35); MEAN CORPUSCULAR HGB CONC 34 g/dL (31-37); MEAN CORPUSCULAR VOLUME 80 fL (79-100); MONO # 0.2 x10^3/uL (0.0-1.1); MONO % 4 % (0-9); NEUT # 4.7 x10^3/uL (1.8-7.7); NEUT % 84 % (31-73); PLATELET COUNT 179 x10^3/uL (140-400); RED CELL DISTRIBUTION WIDTH 14.6 % (11.5-14.5); WHITE BLOOD COUNT 5.6 x10^3/uL (4.0-11.0)
[2021-03-17 05:43] LABS: ALBUMIN 3.4 g/dL (3.4-5.0); ALBUMIN/GLOBULIN RATIO 1.1 (1.0-1.7); CREATININE 0.9 mg/dL (0.6-1.0); GFR 63.4; POTASSIUM 4.4 mmol/L (3.5-5.1); TOTAL BILIRUBIN 0.3 mg/dL (0.2-1.0); TOTAL PROTEIN 6.6 g/dL (6.4-8.2)
[2021-03-17 07:00] VITALS: BP 129/45
--- NOTE | 2021-03-17 08:50 | PDOC ---
Infectious Disease Note Subjective: Subjective Duplicate note Vital Signs: Vital Signs Vital Signs Date Time Temp Pulse Resp B/P (MAP) Pulse Ox O2 Delivery O2 Flow Rate FiO2 03/17/21 03:00 97.7 54 18 144/55 (84) 96 Room Air 96.0 97.7 Physical Exam: PHYSICAL EXAM GENERAL: Alert, oriented x 3, well-developed, well-nourished female lying in bed comfortably on room air, in no acute distress. HEENT: Normocephalic, atraumatic. Anicteric. No thrush. NECK: Supple. LUNGS: Clear bilaterally. No wheezing. HEART: S1, S2. No murmurs. ABDOMEN: Soft, obese. Bowel sounds present, nontender, nondistended. EXTREMITIES: No edema, no cyanosis. DERMATOLOGIC: Warm, dry. No generalized rash. NEUROLOGIC: Alert, oriented x 3. Grossly nonfocal. PSYCHIATRIC: Calm and cooperative. BACK: Reveals normal curvature. No spine tenderness. Medications: Inpatient Meds: Medications reviewed. Labs: Lab Laboratory Tests Test 03/17/21 03:55 White Blood Count 5.6 x10^3/uL (4.0-11.0) Red Blood Count 4.70 x10^6/uL (3.50-5.40) Hemoglobin 12.8 g/dL (12.0-15.5) Hematocrit 37.6 % (36.0-47.0) Mean Corpuscular Volume 80 fL (79-100) Mean Corpuscular Hemoglobin 27 pg (25-35) Mean Corpuscular Hemoglobin Concent 34 g/dL (31-37) Red Cell Distribution Width 14.6 % (11.5-14.5) Platelet Count 179 x10^3/uL (140-400) Neutrophils (%) (Auto) 84 % (31-73) Lymphocytes (%) (Auto) 13 % (24-48) Monocytes (%) (Auto) 4 % (0-9) Eosinophils (%) (Auto) 0 % (0-3) Basophils (%) (Auto) 0 % (0-3) Neutrophils # (Auto) 4.7 x10^3/uL (1.8-7.7) Lymphocytes # (Auto) 0.7 x10^3/uL (1.0-4.8) Monocytes # (Auto) 0.2 x10^3/uL (0.0-1.1) Eosinophils # (Auto) 0.0 x10^3/uL (0.0-0.7) Basophils # (Auto) 0.0 x10^3/uL (0.0-0.2) Sodium Level 143 mmol/L (136-145) Potassium Level 4.4 mmol/L (3.5-5.1) Chloride Level 107 mmol/L (98-107) Carbon Dioxide Level 28 mmol/L (21-32) Anion Gap 8 (6-14) Blood Urea Nitrogen 14 mg/dL (7-20) Creatinine 0.9 mg/dL (0.6-1.0) Estimated GFR (Cockcroft-Gault) 63.4 BUN/Creatinine Ratio 16 (6-20) Glucose Level 144 mg/dL (70-99) Calcium Level 9.0 mg/dL (8.5-10.1) Total Bilirubin 0.3 mg/dL (0.2-1.0) Aspartate Amino Transf (AST/SGOT) 36 U/L (15-37) Alanine Aminotransferase (ALT/SGPT) 121 U/L (14-59) Alkaline Phosphatase 67 U/L (46-116) Total Protein 6.6 g/dL (6.4-8.2) Albumin 3.4 g/dL (3.4-5.0) Albumin/Globulin Ratio 1.1 (1.0-1.7) Objective: Assessment: 1. COVID-19 infection diagnosed 03/07/2021. 2. Leukopenia and lymphopenia. 3. Chronic obstructive pulmonary disease. 4. Dyspnea. 5. Hypertension. 6. Gastroesophageal reflux disease. 7. Status post permanent pacemaker. Plan: Plan of Care Continue supportive care steroids per primary. Monitor labs and cultures GIANNA OLIVER MD Mar 17, 2021 08:49
[2021-03-17] MEDS: FLUTICASONE/VILANTEROL 100/25 INHALER. INH SCH (08:56)
[2021-03-17] MEDS: ALBUTEROL SULFATE 8GM INHALER. INH SCH ×4 (08:56→20:00)
[2021-03-17] MEDS: LISINOPRIL 20 MG TABLET PO SCH (08:57)
[2021-03-17] MEDS: CYANOCOBALAMIN (VITAMIN B-12) 1,000 MCG TABLET. PO SCH (08:57)
[2021-03-17] MEDS: MONTELUKAST SODIUM 10 MG TABLET. PO SCH (08:57)
[2021-03-17] MEDS: ASPIRIN CHEWABLE 81 MG TABLET. PO SCH (08:57)
[2021-03-17] MEDS: FUROSEMIDE 20 MG TABLET PO SCH (08:57)
[2021-03-17] MEDS: PANTOPRAZOLE 40 MG TABLET.DR. PO SCH (08:58)
[2021-03-17] MEDS: ENOXAPARIN 40 MG/0.4 ML SYRINGE. SQ SCH (08:58)
[2021-03-17] MEDS: CITALOPRAM 20 MG TABLET. PO SCH ×2 (08:58→21:00)
--- NOTE | 2021-03-17 09:06 | PDOC ---
PROGRESS NOTES Date of Service: DATE: 03/17/21 TIME: 09:03 Subjective Subjective feels ok Objective Objective Vital Signs Date Time Temp Pulse Resp B/P (MAP) Pulse Ox O2 Delivery O2 Flow Rate FiO2 03/17/21 08:57 54 144/55 03/17/21 03:00 97.7 18 96 Room Air 96.0 97.7 Intake and Output 03/17/21 07:00 Intake Total 1040 ml Balance 1040 ml Intake Oral 940 ml IV Total 100 ml # Voids 4 # Bowel Movements 1 Physical Exam Abdomen: Soft Heart: Regular rate, Normal S1, Normal S2 Extremities: No clubbing General: Alert HEENT: Atraumatic Lungs: Clear to auscultation MUSCULOSKELETAL: No swelling, Osteoarthritic changes both hands Neuro: Normal speech Psych/Mental Status: Mental status NL Skin: No breakdown Diagnosis Problem List Problems Medical Problems: (1) COPD exacerbation Status: Acute Assessment Assessment Problems Medical Problems: (1) COPD exacerbation Status: Acute IMPRESSION: 1. Acute exacerbation of chronic obstructive pulmonary disease. 2. COVID-19 infection. 3. Hypertension. 4. Hyperlipidemia. 5. History of permanent pacemaker. 6. History of asthma. PLAN: po doxycycline change to po q daily. po predispose. cxr noted ,labs good. I will start her on IV Solu-Medrol. Consult Dr. Cuco Obrien for Infectious Disease evaluation and management. Renew home medications. For details, please refer to the orders. I will also start her on IV Rocephin. Previous diarrhea may have been due to Zithromax. For details, please refer to the orders. Plan Plan of Care Problems Medical Problems: (1) COPD exacerbation Status: Acute Comment Review of Relevant I have reviewed the following items beverly (where applicable) has been applied. Labs Laboratory Tests Test 03/17/21 03:55 White Blood Count 5.6 x10^3/uL (4.0-11.0) Red Blood Count 4.70 x10^6/uL (3.50-5.40) Hemoglobin 12.8 g/dL (12.0-15.5) Hematocrit 37.6 % (36.0-47.0) Mean Corpuscular Volume 80 fL (79-100) Mean Corpuscular Hemoglobin 27 pg (25-35) Mean Corpuscular Hemoglobin Concent 34 g/dL (31-37) Red Cell Distribution Width 14.6 % (11.5-14.5) Platelet Count 179 x10^3/uL (140-400) Neutrophils (%) (Auto) 84 % (31-73) Lymphocytes (%) (Auto) 13 % (24-48) Monocytes (%) (Auto) 4 % (0-9) Eosinophils (%) (Auto) 0 % (0-3) Basophils (%) (Auto) 0 % (0-3) Neutrophils # (Auto) 4.7 x10^3/uL (1.8-7.7) Lymphocytes # (Auto) 0.7 x10^3/uL (1.0-4.8) Monocytes # (Auto) 0.2 x10^3/uL (0.0-1.1) Eosinophils # (Auto) 0.0 x10^3/uL (0.0-0.7) Basophils # (Auto) 0.0 x10^3/uL (0.0-0.2) Sodium Level 143 mmol/L (136-145) Potassium Level 4.4 mmol/L (3.5-5.1) Chloride Level 107 mmol/L (98-107) Carbon Dioxide Level 28 mmol/L (21-32) Anion Gap 8 (6-14) Blood Urea Nitrogen 14 mg/dL (7-20) Creatinine 0.9 mg/dL (0.6-1.0) Estimated GFR (Cockcroft-Gault) 63.4 BUN/Creatinine Ratio 16 (6-20) Glucose Level 144 mg/dL (70-99) Calcium Level 9.0 mg/dL (8.5-10.1) Total Bilirubin 0.3 mg/dL (0.2-1.0) Aspartate Amino Transf (AST/SGOT) 36 U/L (15-37) Alanine Aminotransferase (ALT/SGPT) 121 U/L (14-59) Alkaline Phosphatase 67 U/L (46-116) Total Protein 6.6 g/dL (6.4-8.2) Albumin 3.4 g/dL (3.4-5.0) Albumin/Globulin Ratio 1.1 (1.0-1.7) Microbiology 03/15/21 Blood Culture - Preliminary, Resulted NO GROWTH AFTER 1 DAY Medications Current Medications Albuterol Sulfate (Ventolin Hfa) 2 puff RTQID INH Last administered on 03/17/21at 08:56; Start 03/16/21 at 12:00 Doxycycline Hyclate 100 mg/ Dextrose 100 ml @ 50 mls/hr Q12HR IV Last administered on 03/16/21at 20:42; Start 03/16/21 at 11:00; Stop 03/16/21 at 21:44; Status DC Methylprednisolone Sodium Succinate (SOLU-Medrol 40MG VIAL) 40 mg [id number] IV Last administered on 03/16/21at 14:29; Start 03/16/21 at 10:30 Ondansetron HCl (Zofran) 4 mg PRN Q6HRS PRN IVP NAUSEA/VOMITING; Start 03/16/21 at 19:45 Trazodone HCl (Desyrel) 100 mg QHS PO Last administered on 03/16/21at 20:42; Start 03/16/21 at 21:00 Vitals/I & O Vital Sign - Last 24 Hours 03/16/21 03/16/21 03/16/21 03/16/21 11:00 12:06 12:06 15:00 Temp 98.5 98.1 98.5 98.1 Pulse 74 74 74 66 Resp 18 16 B/P (MAP) 152/74 (100) 152/74 152/74 142/56 (84) Pulse Ox 97 96 O2 Delivery Room Air Room Air 03/16/21 03/16/21 03/16/21 03/17/21 19:00 19:30 23:00 03:00 Temp 98.1 97.5 97.7 98.1 97.5 97.7 Pulse 60 55 54 Resp 20 17 18 B/P (MAP) 99/45 (63) 141/55 (83) 144/55 (84) Pulse Ox 91 94 96 O2 Delivery Room Air Room Air Room Air Room Air O2 Flow Rate 96.0 96.0 96.0 03/17/21 03/17/21 08:57 08:57 Pulse 54 54 B/P (MAP) 144/55 144/55 Intake and Output 03/16/21 03/16/21 03/17/21 15:00 23:00 07:00 Intake Total 600 ml 100 ml 340 ml Balance 600 ml 100 ml 340 ml Justifications for Admission Other Justification JEAN CLAUDE MUNOZ MD Mar 17, 2021 09:06
[2021-03-17] MEDS ORDERED: DEXAMETHASONE 4 MG TABLET PO ONE (09:15)
--- NOTE | 2021-03-17 10:56 | NUR ---
SW following. Discussed with RN, pt from home, room air, cardiac diet. COVID-19 positive. RN advised no SW needs, anticipate discharge home tomorrow (03/18/21). SW will continue to follow.
[2021-03-17 11:00] VITALS: BP 120/55
--- NOTE | 2021-03-17 11:02 | PDOC ---
Infectious Disease Note Subjective: Subjective Patient feels okay No more nausea or vomiting Remains on room air Vital Signs: Vital Signs Vital Signs Date Time Temp Pulse Resp B/P (MAP) Pulse Ox O2 Delivery O2 Flow Rate FiO2 03/17/21 08:57 54 144/55 03/17/21 07:00 98.1 18 92 Room Air 98.1 03/17/21 03:00 96.0 Physical Exam: PHYSICAL EXAM GENERAL: Alert, oriented x 3, well-developed, well-nourished female lying in bed comfortably on room air, in no acute distress. HEENT: Normocephalic, atraumatic. Anicteric. No thrush. NECK: Supple. LUNGS: Clear bilaterally. No wheezing. HEART: S1, S2. No murmurs. ABDOMEN: Soft, obese. Bowel sounds present, nontender, nondistended. EXTREMITIES: No edema, no cyanosis. DERMATOLOGIC: Warm, dry. No generalized rash. NEUROLOGIC: Alert, oriented x 3. Grossly nonfocal. PSYCHIATRIC: Calm and cooperative. BACK: Reveals normal curvature. No spine tenderness. Medications: Inpatient Meds: Medications reviewed. Labs: Lab Laboratory Tests Test 03/17/21 03:55 White Blood Count 5.6 x10^3/uL (4.0-11.0) Red Blood Count 4.70 x10^6/uL (3.50-5.40) Hemoglobin 12.8 g/dL (12.0-15.5) Hematocrit 37.6 % (36.0-47.0) Mean Corpuscular Volume 80 fL (79-100) Mean Corpuscular Hemoglobin 27 pg (25-35) Mean Corpuscular Hemoglobin Concent 34 g/dL (31-37) Red Cell Distribution Width 14.6 % (11.5-14.5) Platelet Count 179 x10^3/uL (140-400) Neutrophils (%) (Auto) 84 % (31-73) Lymphocytes (%) (Auto) 13 % (24-48) Monocytes (%) (Auto) 4 % (0-9) Eosinophils (%) (Auto) 0 % (0-3) Basophils (%) (Auto) 0 % (0-3) Neutrophils # (Auto) 4.7 x10^3/uL (1.8-7.7) Lymphocytes # (Auto) 0.7 x10^3/uL (1.0-4.8) Monocytes # (Auto) 0.2 x10^3/uL (0.0-1.1) Eosinophils # (Auto) 0.0 x10^3/uL (0.0-0.7) Basophils # (Auto) 0.0 x10^3/uL (0.0-0.2) Sodium Level 143 mmol/L (136-145) Potassium Level 4.4 mmol/L (3.5-5.1) Chloride Level 107 mmol/L (98-107) Carbon Dioxide Level 28 mmol/L (21-32) Anion Gap 8 (6-14) Blood Urea Nitrogen 14 mg/dL (7-20) Creatinine 0.9 mg/dL (0.6-1.0) Estimated GFR (Cockcroft-Gault) 63.4 BUN/Creatinine Ratio 16 (6-20) Glucose Level 144 mg/dL (70-99) Calcium Level 9.0 mg/dL (8.5-10.1) Total Bilirubin 0.3 mg/dL (0.2-1.0) Aspartate Amino Transf (AST/SGOT) 36 U/L (15-37) Alanine Aminotransferase (ALT/SGPT) 121 U/L (14-59) Alkaline Phosphatase 67 U/L (46-116) Total Protein 6.6 g/dL (6.4-8.2) Albumin 3.4 g/dL (3.4-5.0) Albumin/Globulin Ratio 1.1 (1.0-1.7) Objective: Assessment: 1. COVID-19 infection diagnosed 03/07/2021. 2. Leukopenia and lymphopenia. 3. Chronic obstructive pulmonary disease. 4. Dyspnea. 5. Hypertension. 6. Gastroesophageal reflux disease. 7. Status post permanent pacemaker. Plan: Plan of Care Continue supportive care steroids per primary. Monitor off antibiotics She can be discharged home from ID standpoint GIANNA OLIVER MD Mar 17, 2021 11:02
[2021-03-17 15:00] VITALS: BP 124/54
[2021-03-17 19:00] VITALS: BP 134/61
[2021-03-17] MEDS: traMADol 50 MG TABLET PO PRN (20:50)
[2021-03-17] MEDS: traZODone 100 MG TABLET. PO SCH (21:00)
[2021-03-17] MEDS ORDERED: TRAM50TA PO (22:43)
[2021-03-17] MEDS ORDERED: DEXA4TAB63 PO (22:43)
--- NOTE | 2021-03-17 22:44 | SNU/HH DC ---
DISCHARGE WITH HOME HEALTH DISCHARGE INFORMATION: Discharge Date: Mar 18, 2021 Final Diagnosis: Problems Medical Problems: (1) COPD exacerbation Status: Acute Condition on Discharge: Stable CODE STATUS: Code Status: Full HOME HEALTH: Face to Face: I certify this patient is under my care and that I, or a nurse practitioner or physician's event sales assistant working with me, had a face to face encounter that meets the physician face to face encounter requirements with this patient on []. Medical Complications: Pneumonia RN For Eval/Treatment: Yes Physical Therapy For: Evalulation/Treatment Home Health Aide For: Self-care LITHOGRAPHED PLATE INSPECTOR For: Community Resources Pt Meets Homebound Status: Poor coordination w/ amb. POST DISCHARGE ORDERS: Activity Instructions for Disc: Resume previous activity, Activity as tolerated Weight Bearing Status after Di: No restrictions DIET AFTER DISCHARGE: Low Sodium 2 gm Wound/Incision Care: No wound care needed CERTIFICATION STATEMENT: Certification Statement: Certification Statement: Based on the above finding, I certify that this patient is confined to the home and needs intermittent alf care, physical therapy and/or speech therapy, or continues to need occupational therapy.~ This patient is under my care, and I have initiated the establishment of the plan of care.~ This patient will be followed by myself or a community physician who will periodically review the plan of care. Home Meds Active Scripts Tramadol Hcl (TRAMADOL HCL) 50 Mg Tablet, 50 MG PO PRN Q6HRS PRN for MODERATE PAIN 4-6 for 7 Days, TAB Prov:JEAN CLAUDE MUNOZ MD 03/17/21 Dexamethasone (Decadron) 4 Mg Tablet, 6 MG PO DAILYWBKFT for steroid for 5 Days, #8 TAB Prov:JEAN CLAUDE MUNOZ MD 03/17/21 Albuterol Sulfate (VENTOLIN HFA INHALER) 18 Gm Hfa.aer.ad, 2 PUFF INH QID for FOR ASTHMA, #1 INHALER 0 Refills Prov:PARISA LEES DO 03/07/21 Fluticasone Propionate (FLOVENT 44MCG HFA) 10.6 Gm Aer.w.adap, 2 PUFF IH BID, #1 INHALER 0 Refills Prov:PARISA LEES DO 03/07/21 Albuterol Sulfate (PROAIR HFA INHALER) 8.5 Gm Hfa.aer.ad, 1 PUFF INH PRN Q6HRS PRN for SHORTNESS OF BREATH for 1 Day, INHALER 0 Refills Prov:ATIF WOODWARD MD 03/25/19 [Pantoprazole] [address] Beebe Conflict Check, 40 MG PO DAILYAC for 30 Days Prov:JEAN CLAUDE MUNOZ MD 05/26/18 Reported Medications Furosemide (FUROSEMIDE) 20 Mg Tablet, 1 TAB PO DAILY for diuretic, #90 TAB 1 Refill 08/03/20 Amlodipine Besylate (AMLODIPINE BESYLATE) 10 Mg Tablet, 10 MG PO DAILY, TAB 05/24/18 Cyanocobalamin (Vitamin B-12) (VITAMIN B-12) 1,000 Mcg Tablet, 1000 MCG PO DAILY for vitamin 05/16/15 Fluticasone Propionate (Flonase Allergy Relief) 9.9 Ml [place].susp, 9.9 ML NS PRN BID PRN for ALLERGIES 05/16/15 Albuterol Sulfate (VENTOLIN HFA INHALER) 18 Gm Hfa.aer.ad, 2 PUFF INH Q4HRS for FOR ASTHMA, INHALER 0 Refills 05/16/15 Diphenhydramine Hcl (BENADRYL) 25 Mg Capsule, 1 CAP PO TID, #30 CAP 05/16/15 Citalopram Hydrobromide (CELEXA) 20 Mg Tablet, 1 TAB PO BID, #30 TAB 2 Refills 05/16/15 Aspirin (ASPIRIN) 81 Mg Tab.chew, 1 TAB PO DAILY, #90 TAB 3 Refills 05/16/15 Trazodone Hcl (TRAZODONE HCL) 100 Mg Tablet, 1 TAB PO QHS, #30 TAB 05/16/15 Montelukast Sodium (SINGULAIR TABLET ) 10 Mg Tablet, 1 TAB PO DAILY, #90 TAB 3 Refills 05/16/15 Lisinopril (LISINOPRIL) 40 Mg Tablet, 1 TAB PO DAILY, #90 TAB 3 Refills 05/16/15 JEAN CLAUDE MUNOZ MD Mar 17, 2021 22:44
[2021-03-17 23:00] VITALS: BP 121/59
[2021-03-18 07:00] VITALS: BP 87/53
[2021-03-18] MEDS ORDERED: DEXAMETHASONE 4 MG TABLET PO SCH (08:00)
[2021-03-18] MEDS: LISINOPRIL 20 MG TABLET PO SCH (09:00)
--- NOTE | 2021-03-18 09:09 | PDOC ---
PROGRESS NOTES Date of Service: DATE: 03/18/21 TIME: 09:06 Objective Objective Vital Signs Date Time Temp Pulse Resp B/P (MAP) Pulse Ox O2 Delivery O2 Flow Rate FiO2 03/18/21 02:20 55 99 03/17/21 23:00 98.6 18 121/59 (79) Room Air 98.6 03/17/21 08:00 96.0 l Intake and Output 03/18/21 07:00 Output Total 0 ml Balance 0 ml Output Urine Total 0 ml # Voids 2 Physical Exam Abdomen: Soft Heart: Regular rate, Normal S1, Normal S2 Extremities: No clubbing General: Alert HEENT: Atraumatic Lungs: Clear to auscultation MUSCULOSKELETAL: No swelling, Osteoarthritic changes both hands Neuro: Normal speech Psych/Mental Status: Mental status NL Skin: No breakdown Diagnosis Problem List Problems Medical Problems: (1) COPD exacerbation Status: Acute Assessment Assessment Problems Medical Problems: (1) COPD exacerbation Status: Acute IMPRESSION: 1. Acute exacerbation of chronic obstructive pulmonary disease. 2. COVID-19 infection. 3. Hypertension. 4. Hyperlipidemia. 5. History of permanent pacemaker. 6. History of asthma. PLAN: d/c home today po doxycycline change to po q daily. po predispose. cxr noted ,labs good. I will start her on IV Solu-Medrol. Consult Dr. Cuco Obrien for Infectious Disease evaluation and management. Renew home medications. For details, please refer to the orders. I will also start her on IV Rocephin. Previous diarrhea may have been due to Zithromax. For details, please refer to the orders. Plan Plan of Care Problems Medical Problems: (1) COPD exacerbation Status: Acute Comment Review of Relevant I have reviewed the following items beverly (where applicable) has been applied. Labs Microbiology 03/15/21 Blood Culture - Preliminary, Resulted NO GROWTH AFTER 2 DAYS Medications Current Medications Dexamethasone (Decadron) 6 mg DAILYWBKFT PO ; Start 03/18/21 at 08:00 Dexamethasone (Decadron) 10 mg 1X ONCE PO Last administered on 03/17/21at 09:15; Start 03/17/21 at 09:15; Stop 03/17/21 at 09:16; Status DC Tramadol HCl (Ultram) 50 mg PRN Q6HRS PRN PO MODERATE PAIN 4-6 Last administere d on 03/17/21at 20:50; Start 03/17/21 at 20:45 Vitals/I & O Vital Sign - Last 24 Hours 03/17/21 03/17/21 03/17/21 03/17/21 11:00 15:00 19:00 23:00 Temp 98.5 98.2 98.4 98.6 98.5 98.2 98.4 98.6 Pulse 60 55 54 52 Resp 18 18 18 18 B/P (MAP) 120/55 (76) 124/54 (77) 134/61 (85) 121/59 (79) Pulse Ox 94 91 94 100 O2 Delivery Room Air Nasal Cannula Room Air Room Air 03/18/21 02:20 Pulse 55 Pulse Ox 99 Intake and Output 03/17/21 03/17/21 03/18/21 15:00 23:00 07:00 Output Total 0 ml Balance 0 ml Justifications for Admission Other Justification JEAN CLAUDE MUNOZ MD Mar 18, 2021 09:09
[2021-03-18] MEDS: ASPIRIN CHEWABLE 81 MG TABLET. PO SCH (10:10)
[2021-03-18] MEDS: PANTOPRAZOLE 40 MG TABLET.DR. PO SCH (10:10)
[2021-03-18] MEDS: CITALOPRAM 20 MG TABLET. PO SCH (10:10)
[2021-03-18] MEDS: CYANOCOBALAMIN (VITAMIN B-12) 1,000 MCG TABLET. PO SCH (10:10)
[2021-03-18] MEDS: FUROSEMIDE 20 MG TABLET PO SCH (10:11)
[2021-03-18] MEDS: traMADol 50 MG TABLET PO PRN (10:12)
[2021-03-18] MEDS: MONTELUKAST SODIUM 10 MG TABLET. PO SCH (10:12)
[2021-03-18] MEDS: ENOXAPARIN 40 MG/0.4 ML SYRINGE. SQ SCH (10:13)
[2021-03-18] MEDS: ALBUTEROL SULFATE 8GM INHALER. INH SCH ×3 (10:14→16:13)
[2021-03-18] MEDS: FLUTICASONE/VILANTEROL 100/25 INHALER. INH SCH (10:14)
[2021-03-18 11:00] VITALS: BP 133/54
--- NOTE | 2021-03-18 19:32 | NUR ---
pt was discharged home with self care at 1855. was picked up by her son at the main entrance. I need to have dr Moore electronically send her tramadol to her Pharmacy. will do tomorrow. pt was also asking about a cough syrup. Minesh Brown RN
== END 2021-03-18 19:00 | disposition home health service (06) | DRG 178 ==
LOC: ER 16:48 → 5 NORTH 20:42
PROVIDERS: ADMIT Internal Medicine; ATTEND Internal Medicine
DX: U07.1 COVID-19 (principal); J44.1 Chronic obstructive pulmonary disease with (acute) exacerbation; I11.0 Hypertensive heart disease with heart failure; I50.9 Heart failure, unspecified; K21.9 Gastro-esophageal reflux disease without esophagitis; E78.5 Hyperlipidemia, unspecified; D72.810 Lymphocytopenia; Z98.51 Tubal ligation status; Z88.8 Allergy status to other drugs, medicaments and biological substances; Z83.3 Family history of diabetes mellitus; Z95.0 Presence of cardiac pacemaker
CPT/HCPCS: 36415; 71045; 80048; 80053; 83605; 83735; 84145; 84443; 84484; 85025; 87040; 87426; 93005; 96374; J1100; J1650; J2405; J2920; J3490; J7060; U0003; U0005; 99285-25; G0378

== ENCOUNTER 2021-04-03 19:52 | Emergency (ER) | payer OTHER ==
[~2021-04-03] VITALS: Ht 154.9 cm; Wt 81.4 kg
[2021-04-03 21:35] VITALS: BP 182/70
[2021-04-03] MEDS ORDERED: NAPROXEN 500 MG TABLET PO STA (22:10)
[2021-04-03] MEDS ORDERED: CYCLOBENZAPRINE 10 MG TABLET. PO ONE (22:15)
[2021-04-03] MEDS ORDERED: HYDROcodone/APAP 5/325MG 1 TAB TABLET PO ONE (22:15)
[2021-04-03] MEDS ORDERED: HYDR-2761 PO (22:21)
[2021-04-03] MEDS ORDERED: CYCL10TA2 PO (22:21)
[2021-04-03] MEDS ORDERED: NAPR-695 PO (22:21)
--- NOTE | 2021-04-03 22:27 | PHYS DOC ---
Past Medical History Past Medical History: Asthma, CHF, COPD, GERD, Heart Disease, Hypertension Past Surgical History: Other Additional Past Surgical Histo: pacemaker Smoking Status: Former Smoker Alcohol Use: None Drug Use: None General Adult EDM: Chief Complaint: LOWER BACK PAIN OR INJURY HPI: HPI: Patient is a 61 year old female with a history of COPD, hypertension, CHF, asthma, chronic low back pain, who presents the ED today complaining of 10 out of 10 bilateral low back pain radiating to bilateral lower extremities. Patient states pain is chronic but has gotten worse in the last 1 week. Patient states pain is worse on sitting on certain positions as well as moving around. Patient describes the pain as sharp and constant. She states she has tried taking [id number] remedies and lidocaine patches with no relief. Patient denies any trauma. Denies any loss of bowel/bladder function. Denies any numbness or tingling to bilateral lower extremities. Review of Systems: Review of Systems: Constitutional: Denies fever or chills. [] GI: Denies abdominal pain, nausea, vomiting, bloody stools or diarrhea. [] : Denies dysuria. [] Musculoskeletal: Reports low back pain Integument: Denies rash. [] Neurologic: Denies headache, focal weakness or sensory changes. [] Psychiatric: Denies depression or anxiety. [] Heart Score: C/O Chest Pain: N/A Risk Factors: Risk Factors: DM, Current or recent (<one month) smoker, HTN, HLP, family history of CAD, obesity. Risk Scores: Score 0 - 3: 2.5% MACE over next 6 weeks - Discharge Home Score 4 - 6: 20.3% MACE over next 6 weeks - Admit for Clinical Observation Score 7 - 10: 72.7% MACE over next 6 weeks - Early Invasive Strategies Current Medications: Current Medications Medications (Trade) Dose Ordered Sig/Paula Start Time Stop Time Status Last Admin Dose Admin Acetaminophen/ Hydrocodone Bitart (Lortab 5/325) 2 tab 1X ONCE 04/03/21 22:15 04/03/21 22:16 Cyclobenzaprine HCl (Flexeril) 10 mg 1X ONCE 04/03/21 22:15 04/03/21 22:16 Naproxen (Naprosyn) 500 mg 1X STAT 04/03/21 22:10 04/03/21 22:13 DC Allergies: Allergies: Allergies Coded Allergies Type Severity Reaction Last Updated Verified piperacillin Allergy Intermediate rash 08/02/20 No tazobactam Allergy Intermediate rash 08/02/20 No Physical Exam: PE: Constitutional: Well developed, well nourished, no acute distress, non-toxic appearance. [] Abdomen: Bowel sounds normal, soft, no tenderness, no masses, no pulsatile masses. [] Skin: Warm, dry, no erythema, no rash. [] Back: No tenderness, no CVA tenderness. [] Extremities: No tenderness, no cyanosis, no clubbing, ROM intact, no edema. [] Neurologic: Alert and oriented X 3, normal motor function, normal sensory function, no focal deficits noted. [] Psychologic: Affect normal, judgement normal, mood normal. [] Current Patient Data: Vital Signs: Vital Signs Date Time Temp Pulse Resp B/P (MAP) Pulse Ox O2 Delivery O2 Flow Rate FiO2 04/03/21 21:35 98.3 67 18 182/70 (80) 98 Room Air 98.3 EKG: EKG: [] Radiology/Procedures: Radiology/Procedures: [] Course & Med Decision Making: Course & Med Decision Making Pertinent Labs and Imaging studies reviewed. (See chart for details) This is a 61-year-old female patient presented to the ED today with chronic low back pain. Patient has no cauda equina syndrome symptoms. Discharge to home with a short supply of hydrocodone, Flexeril and naproxen. Follow-up with PCP next week. Nimco Disclaimer: Nimco Disclaimer: This electronic medical record was generated, in whole or in part, using a voice recognition dictation system. Departure Departure Impression: Primary Impression: Chronic low back pain Qualified Codes: M54.42 - Lumbago with sciatica, left side; M54.41 - Lumbago with sciatica, right side; G89.29 - Other chronic pain Disposition: 01 HOME / SELF CARE / HOMELESS Condition: STABLE Referrals: JEAN CLAUDE MUNOZ MD (PCP) Follow-up in 1 to 2 weeks Patient Instructions: Back Pain, Adult Additional Instructions: You were seen in the emergency room for low back pain. Take the prescribed medications as ordered. Please follow-up with your primary care doctor next week. Come back to the ED at any point symptoms worsen Scripts Hydrocodone Bit/Acetaminophen (HYDROCODONE-APAP 5-325 ) 1 Tab Tablet 1 TAB PO PRN Q6HRS PRN for PAIN, #12 TAB 0 Refills Prov: JULIA LAU APRN 04/03/21 Naproxen (NAPROXEN) 375 Mg Tablet 1 TAB PO BID for pain, #6 TAB 0 Refills with food Prov: JULIA LAU APRN 04/03/21 Cyclobenzaprine Hcl (CYCLOBENZAPRINE HCL) 10 Mg Tablet 1 TAB PO TID, #30 TAB Prov: JULIA LAU APRN 04/03/21 JULIA LAU APRN Apr 03, 2021 22:27
== END 2021-04-03 22:29 | disposition home or self-care (01) ==
LOC: ER 19:52
DX: M54.42 Lumbago with sciatica, left side (principal); M54.41 Lumbago with sciatica, right side; G89.29 Other chronic pain; J44.9 Chronic obstructive pulmonary disease, unspecified; K21.9 Gastro-esophageal reflux disease without esophagitis; I11.0 Hypertensive heart disease with heart failure; I50.9 Heart failure, unspecified; Z95.0 Presence of cardiac pacemaker; Z88.8 Allergy status to other drugs, medicaments and biological substances
CPT/HCPCS: 99284